=== PATIENT | female | born 1970 | race Caucasian/White ===

== ENCOUNTER 2024-05-13 14:54 | Emergency (ER) | payer MEDICARE, SELFPAY ==
[2024-05-13] VITALS (22 sets, daily range): BP systolic 105–141; BP diastolic 67–95; PULSE 87–118; RESP 14–28; TEMP 35.5–35.7; O2SAT 98–100
--- NOTE | ~2024-05-13 | XR_ITS ---
XR chest ET placement Ordering provider: Anshu Ortiz MD History: 53 years Female with . ET PLACEMENT AND OG,NONRESPONSIVE,H/O SEIZURES . Comparison: September 03, 2023 FINDINGS: Nasogastric tube with the tip in the stomach. Endotracheal tube with the tip above the genie by abou t 2.9 cm. Congestive rita. MEDIASTINUM: The cardiac silhouette is not enlarged. LUNGS: No infiltrates, effusions or pneumothorax. OTHER: No free air under the diaphragm. IMPRESSION: No acute cardiopulmonary pathology. Reviewed, dictated and finalized at location A.
--- NOTE | ~2024-05-13 | CT_ITS ---
CT brain wo con Ordering provider: Anshu Ortiz MD History: 53 years Female with . ams . Comparison: September 03, 2023 Technique: CT of the head without contrast. Radiation reduction technique utilized. The dose-length product was 756.67 mGy-cm. FINDINGS: BRAIN PARENCHYMA AND CSF SPACES: No midline shift, mass effect or hemorrhage. The brain parenchyma a nd CSF spaces are otherwise normal. VISUALIZED PARANASAL SINUSES: Well aerated. MASTOIDS: Well aerated. BONES: The bones appear intact. SOFT TISSUES: Visualized nasopharynx is normal. Superficial soft tissues are normal. IMPRESSION: No acute intracranial findings. Reviewed, dictated and finalized at location A.
--- NOTE | 2024-05-13 14:54 | PC.NURSE ---
patient arrives to department. unknown name at this time. per ems, non compliant with home medications, smells of etoh, has taken multiple norco, found face down on the ground after getting out of vehicle. unresponsive.
--- NOTE | 2024-05-13 14:58 | PC.NURSE ---
blood glucose 78. hx of seizures, last known seizure october per ems
--- NOTE | 2024-05-13 15:01 | PC.NURSE ---
continue to bag patient dilated pupils, moves eyes left and right. labs drawn and taken to lab
[2024-05-13] MEDS: DEXTROSE 50% 25 GM/50 ML SYRINGE IV PUSH (15:03)
--- NOTE | 2024-05-13 15:06 | PC.NURSE ---
plan for intubation by dr johnston. trying to contact family to verify code status. patient continues to be bagged by respiratory therapist
--- NOTE | 2024-05-13 15:07 | PC.NURSE ---
ekg in progress by susanne nava
--- NOTE | 2024-05-13 15:09 | ECG_ITS ---
Test Date: 2024-05-13 15:12:58 Measurements Intervals [place] Rate: 113 P: 57 [place]: 181 QRS: -11 QRSD: 92 T: 52 QT: 341 QTc: 469 Interpretive Statements SINUS TACHYCARDIA POSSIBLE LEFT ATRIAL ENLARGEMENT MINIMAL Q WAVES- HIGH LATERAL LEADS BORDERLINE ST-T WAVE ABNORMALITY- INF/LAT LEADS BASELINE ARTIFACT- AVL, V1-V2, V6 ABNORMAL ECG No previous ECG available for comparison Electronically Signed On 05-13-2024 15:30:50 CDT by Aaron Ca D.O.
--- NOTE | 2024-05-13 15:18 | PC.NURSE ---
[place] [employer] notified to identify pt, they return the call reporting pt is Jolanta Montes, with Sandeep Montes, and EMS returned to scene to get son's phone number due to him being medical power of contract attorney. informed EMS pt is NO CPR, unsure of intubation, message left on son's phone Micky Montes at [phone].
[2024-05-13] MEDS: NALOXONE HCL INJ 2 MG/2 ML AMP IV PUSH (15:19)
--- NOTE | 2024-05-13 15:19 | PC.NURSE ---
repeat blood glucose 167. continue to bag patient. narcan given.
[2024-05-13 15:20] LABS: Hemoglobin 12.8 g/dL (12.0-15.0); Mean Corpuscular HGB Conc 32.8 g/dL (32-36); Mean Corpuscular Hemoglobin 29.7 pg (27.0-31.0); Mean Corpuscular Volume 90.5 fL (78.0-102.0); Mean Platelet Volume 11.1 fl (9.2-11.8); Platelet Count Result 355 K/mm3 (150-420); Red Blood Count 4.31 M/mm3 (4.20-5.40); Red Cell Distribution Width 14.3 % (11.6-14.4); White Blood Count 8.4 K/mm3 (4.8-10.8)
[2024-05-13 15:24] LABS: Add Urine Microscopic? NO; Appearance Urine Clear (Clear); Bilirubin Urine Negative (Negative); Blood Urine Negative (Negative); Color Urine Yellow (Yellow); Glucose Urine UA Negative (Negative); Ketones Urine Trace (Negative); Leukocyte Esterase Ur Negative LEU/UL (Negative); Nitrate Urine Negative (Negative); Protein Urine Negative (Negative); Urobilinogen Urine 0.2 mg/dL (0.2-1.0); pH Urine 5.5 (5.0-8.0)
--- NOTE | 2024-05-13 15:27 | PC.NURSE ---
SPOKE WITH SON WHO IS UNSURE IF HE IS POWER OF CURRENCY EXCHANGE SPECIALIST I DON'T KNOW, THAT'S WHAT THEY TELL ME, WE DON'T GET ALONG, DO WHATEVER YOU HAVE TO TO GET HER GOING AGAIN. THIS RN EXPLAINED PT STATUS, AND WHAT THE DIFFERENCE IN CODE STATUSES. SON STATES PT IS A FULL CODE AT THIS TIME. ERP SPEAKS WITH SON, AND HE NOTIFIES ERP THAT PT IS A FULL CODE. [phone]. PT CONTINUES TO HAVE RHYTHMIC EYE MOVEMENT, ERP HAS BEEN NOTIFIED, REQUESTED MEDICATION FOR SEIZURE MANAGEMENT, STATES HE IS GOING TO INTUBATE PT FIRST.
--- NOTE | 2024-05-13 15:31 | PC.NURSE ---
second plan for intubation by dr johnston. patient is full code.
[2024-05-13] MEDS: ETOMIDATE 20 MG/10 ML AMPUL 30 MG IV PUSH (15:32)
[2024-05-13] MEDS: SUCCINYLCHOLINE CHLORIDE 20 MG/ML 10 ML VIAL 150 MG IV PUSH (15:32)
--- NOTE | 2024-05-13 15:34 | PC.NURSE ---
Intubation by Dr Ortiz. 23 at the lip, 7.5 ett. 100% with ventilation, +color change, + breath sounds
[2024-05-13 15:38] LABS: Amphetamine Screen Urine Negative (Negative); Barbiturate Screen Urine Negative (Negative); Benzodiazepines Screen Urine Negative (Negative); Cannabinoid Screen Urine Positive (Negative); Cocaine Screen Urine Negative (Negative); Methadone Screen Urine Negative (Negative); Opiate Screen Urine Positive (Negative); Phencyclidine Screen Urine Negative (Negative)
[2024-05-13 15:38] LABS: INR 1.2; Partial Thromboplastin Time 28.7 Sec (23.9-30.70); Prothrombin Time 13.4 Seconds (9.50-12.1)
--- NOTE | 2024-05-13 15:38 | PC.NURSE ---
18 F OG tube placed by Raphael ANG
[2024-05-13 15:41] LABS: Alanine Aminotransferase 47 U/L (14-59); Albumin Level 3.4 g/dL (3.4-5.0); Alkaline Phosphatase 143 U/L (46-116); Anion Gap 9 mmol/L (4-12); Aspartate Amino Transferase 30 U/L (15-37); Bilirubin,Total 0.2 mg/dL (0.00-1.00); Blood Urea Nitrogen 10 mg/dL (7-18); Calcium 8.6 mg/dL (8.5-10.1); Carbon Dioxide 27 mmol/L (21-32); Chloride 99 mmol/L (98-108); Estimated CRCL calculation 82 ml/min; Estimated Glomerular Filt Rate > 60; Ethanol 118 mg/dL (0-6); Glucose 78 mg/dL (70-99); Magnesium 2.2 mg/dL (1.8-2.4); Osmolality Calculated 278 mOsm/kg (285-295); Potassium 3.4 mmol/L (3.5-5.1); Sodium 135 mmol/L (136-145); Total Protein 6.9 g/dL (6.4-8.2); Troponin I 4.5 ng/L (0.00-60.4)
[2024-05-13] MEDS: PROPOFOL IV EMULSION 100 ML 2.72 MG IV CONT (15:44)
[2024-05-13 15:45] LABS: Lactic Acid Reflex 2.8 mmol/L (0.4-2.0)
--- NOTE | 2024-05-13 15:58 | PC.NURSE ---
increased secreations from the mouth. suction complete
--- NOTE | 2024-05-13 15:58 | ED.GENADULT ---
HPI - General Adult General Chief complaint: Altered Mental Status Stated complaint: AMBULANCE Time Seen by Provider: 05/13/24 15:04 History of Present Illness HPI narrative: 53-year-old white female with history of seizure disorder brought in by EMS unresponsive. She has a history of this past spring being intubated for seizures for prolonged period of time several months. said that she got out of her car and started to come to the house but then went unresponsive went to the grass had irregular breathing EMS arrived and she was in agonal breathing. She was given 4 mg of Narcan and 2 mg of Versed for eye rolling otherwise she had no other seizure like activity. stated she probably drank 3 beers and took several of her Vicodin Prior to all this. Her previous seizures that led to her prolonged intubation and ventilation support were similar to this episode according to the . said she was doing fine before this episode. Related Data Home Medications Medication Instructions Recorded Confirmed atorvastatin 40 mg tablet 40 mg PO DAILY 05/13/24 05/13/24 duloxetine 60 mg capsule,delayed 60 mg PO DAILY 05/13/24 05/13/24 release gabapentin 800 mg tablet 800 mg PO TID 05/13/24 05/13/24 hydrocodone 5 mg-acetaminophen 325 1 tablet PO Q8H PRN Pain 05/13/24 05/13/24 mg tablet lacosamide 200 mg tablet 200 mg PO BID 05/13/24 05/13/24 levetiracetam 1,000 mg tablet 1,000 mg PO BID 05/13/24 05/13/24 levothyroxine 150 mcg tablet 150 mcg PO DAILY 05/13/24 05/13/24 magnesium oxide-magnesium amino 400 cap PO DAILY 05/13/24 05/13/24 acid chelate 300 mg capsule (Magnesium (oxide/AA chelate)) nifedipine 60 mg tablet,extended 60 mg PO DAILY 05/13/24 05/13/24 release 24 hr pantoprazole 40 mg tablet,delayed 40 mg PO DAILY 05/13/24 05/13/24 release propafenone 150 mg tablet 150 mg PO BID 05/13/24 05/13/24 trazodone 50 mg tablet 50 mg PO HS 05/13/24 05/13/24 warfarin 1 mg tablet 1 mg PO DAILY 05/13/24 05/13/24 warfarin 3 mg tablet 3 mg PO DAILY 05/13/24 05/13/24 Allergies Allergy/AdvReac Type Severity Reaction Status Date / Time ciprofloxacin Allergy Itching Verified 05/13/24 15:52 Review of Systems Review of Systems: ROS unobtainable: Yes unobtainable due to endotracheal tube and unobtainable due to mental status Exam Narrative: White female patient coma toes not responding to painful stimuli with agonal respirations being bagged..? Head normocephalic, atraumatic.? Eyes conjunctiva pink sclera nonicteric. Pupils are 5 mm equal and react to light.? Ears externally normal.? Oropharynx is clear with moist mucous membranes without exudates.? Neck is supple nontender no lymphadenopathy. Lungs are clear.? Heart is Rapid with regular rate and rhythm without murmurs gallops or rubs.? Chest wall nontender. Abdomen is soft and nontender no hepatosplenomegaly or masses no CVA tenderness no abdominal bruits. There is a bandage center of her abdomen looks like G-tube site without the G-tube..? Extremities no cyanosis clubbing or edema.? Skin is warm and dry without rashes or lesions.? Neurological patient is alert and oriented x4.? Motor : Patient does move all extremities. Course Vital Signs Vital signs: Vital Signs Pulse Rate 106 H 05/13/24 14:58 Respiratory Rate 16 05/13/24 14:58 Blood Pressure 105/74 05/13/24 14:58 Pulse Oximetry 98 05/13/24 14:58 Temperature 35.5 C L 05/13/24 17:19 Pulse Rate 87 05/13/24 17:16 Respiratory Rate 14 05/13/24 17:16 Blood Pressure 119/83 05/13/24 17:16 Pulse Oximetry 100 05/13/24 17:16 Oxygen Delivery Mechanical Ventilation 05/13/24 17:16 Medical Decision Making MDM Narrative Medical decision making narrative: Patient placed in room: 7 by EMS ? History and physical was performed. patient given 4 of Narcan by EMS and 2 of Versed IV patient was being bagged by EMS having had and having agonal respirations. review of
--- NOTE | 2024-05-13 16:07 | PC.NURSE ---
pt had 90 norco tabs filled on 05/02/24. there are 16 tabs left in the bottle. pt is to take 3 tablets a day as needed, there are 38 norco tablets unaccounted for at this time. pt does not have a pill box filled at home. kedelonra is appropriate, recently started on this and weaned off the depakote per .
[2024-05-13] MEDS: levETIRAcetam 1000MG/NACL100ML 1,000 MG/100 ML BAG 400 MG IVPB (16:09)
--- NOTE | 2024-05-13 16:14 | PC.NURSE ---
blood glucose 122
[2024-05-13 16:16] LABS: Glucose Point of Care 122 mg/dl (65-105)
--- NOTE | 2024-05-13 16:27 | PC.NURSE ---
patient being transported to ct via mik harkins ventilator, lynne liriano and sol PRICE
[2024-05-13 16:31] LABS: Salicylate 6.7 mg/dL (2.8-20.0)
[2024-05-13 16:31] LABS: Thyroid Stimulating Hormone 44.11 uIU/mL (0.36-3.74)
[2024-05-13 16:32] LABS: Acetaminophen < 2 ug/mL (10-30)
--- NOTE | 2024-05-13 16:40 | PC.NURSE ---
returned from ct with monitor, ventilator, lynne liriano and sol rt
--- NOTE | 2024-05-13 16:54 | PC.NURSE ---
currently awaiting bed placement at [facility]. Patient is resting on stretcher. Intubated, sedated, on conveyor monitor. patient at times will move her hands and her feet. dilated pupils at 4. moves eyes left and right when eyes are being checked.
--- NOTE | 2024-05-13 16:59 | PC.NURSE ---
SPOKE WITH SON SILVANA WHO CALLED TO REPORT PT HAS BEEN DRINKING ETOH AND ABUSING HER NORCO FOR THE PAST MONTH, SON REPORTS HE WANTED TO MAKE SURE STAFF WAS AWARE, WAS UNCERTAIN IF HAD REPORTED THIS, STATES HE DOES NOT LIKE TO DISCLOSE THIS INFORMATION.
--- NOTE | 2024-05-13 17:08 | PC.NURSE ---
personal items of blue jeans, brown boots and medications given back to to take home. shirt was cut off by ems, thrown away
--- NOTE | 2024-05-13 17:26 | PC.NURSE ---
RADIOLOGY PUSHED IMAGES TO [facility]
--- NOTE | 2024-05-13 17:33 | PC.NURSE ---
air evac here for patient.
[2024-05-13 18:17] LABS: Reflex Lactic Acid Yes or No Add Lactic
== END 2024-05-13 18:01 | disposition short-term general hospital (02) ==
PROVIDERS: Emergency Provider Emergency Medicine; PCP Family Medicine
DX: R40.4 Transient alteration of awareness (principal); F10.129 Alcohol abuse with intoxication, unspecified; Y90.9 Presence of alcohol in blood, level not specified; T40.601A Poisoning by unspecified narcotics, accidental (unintentional), initial encounter; G40.909 Epilepsy, unspecified, not intractable, without status epilepticus; Z79.899 Other long term (current) drug therapy; Z79.891 Long term (current) use of opiate analgesic; Z79.01 Long term (current) use of anticoagulants
CPT/HCPCS: 31500; 36415; 70450; 80053; 80307; 81003; 82948; 83605; 83735; 84443; 84484; 85027; 85610; 85730; 93005; 96365; 96375; 99285; J0330; J1953; J2310; J2704

== ENCOUNTER 2024-12-17 07:31 | Outpatient (CLI) | payer MEDICARE, SELFPAY ==
--- NOTE | ~2024-12-17 | NM_ITS ---
EXAMINATION: NM sybil stress w perfusion DATE: 12/17/2024 10:55 INDICATION: Chest pain TECHNIQUE: Rest images were obtained following intravenous administration of 10 mCi Tc99m tetrofosmin (Myoview). The patient was infused intravenously with Lexiscan (Regadenoson). Then, 33 mCi Tc99m tet rofosmin (Myoview) was administered intravenously, and stress images were obtained. Data was reconstr ucted into short axis and horizontal and vertical long axis SPECT images. Gated SPECT images were als o obtained. COMPARISON: None. FINDINGS: There is no definite reversible or fixed perfusion abnormality to suggest ischemia or infar ction. There is normal left ventricular chamber size, wall motion and ejection fraction. Left ventr icular ejection fraction measures >70%. IMPRESSION: 1. Normal myocardial perfusion at rest and during stress. 2. Left ventricular ejection fraction measuring >70%. Reviewed, dictated and finalized at location B.
--- OUTSIDE RECORDS SUMMARY | 2024-12-17 07:39 | XMS_ITS | Encounter Summary ---
Author Organization [facility] Address [facility] [place] [address] Care Team Providers Care Tumbling And Rolling Supervisor Name Role Phone Cuate St MD Primary Care Provider [phone] Pallavi Rahman MD Unavailable Akshat Magana MD Primary Care Provider [phone] Josephine Aguilar MD Unavailable [phone] Eric Gauthier MD Unavailable [phone] Josephine Aguilar MD Primary Care Provider + [phone] Demetri Edwards MD Unavailable [phone] Ronaldo Weston DO Primary Care Provider [phone] Encounter Details Date Type Department Care Team (Late st Contact Info) Description 09/20/2022 [facility] Message Enc [facility] [address] [phone] [facility] Provider Response Social History Tobacco Use Types Packs/Day Years Used Date Smoking Tobacco: Former Cigarettes Smokeless Tobacco: Never Alcohol Use Standard Drinks/Week Comments Not Currently 0 (1 standard drink = 0.6 oz pur e alcohol) hx of alcoholism Humiliation, Afraid, Rape, and Kick questionnair e Answer Date Recorded Within the last year, have y ou been afraid of your partner or ex-partner? No 09/20/2022 Within the last year, have y ou been humiliated or emotionally abused in other ways by your partner or ex-partner? No Within the last year, have y ou been kicked, hit, slapped, or otherwise physically hurt by your partner or ex-partner? No 09/20/2022 Within the last year, have y ou been raped or forced to have any kind of sexual activity by your partner or ex-partner? No 09/20/2022 Overall Financial Resource Strain (CARDIA) Answe r Date Recorded How hard is it for you to pa y for the very basics like food, housing, medical care, and heating? Somewhat hard 09/20/2022 Hunger Vital Sign Answer Date Recorded Within the past 12 months, y ou worried that your food would run out before you got the money to buy more. Sometimes true Within the past 12 months, t he food you bought just didn't last and you didn't have money to get more. Sometimes true 08/2022 PRAPARE - Transportation Answer Date Re corded In the past 12 months, has l ack of transportation kept you from medical appointments or from getting medications? No 08/2022 In the past 12 months, has l ack of transportation kept you from meetings, work, or from getting things needed for daily living? No 09/20/2022 Housing Stability Vital Sign Answer Mehul e Recorded In the last 12 months, was t here a time when you were not able to pay the mortgage or rent on time? No 09/20/2022 In the last 12 months, how many places have you lived? 1 09/20/2022 In the last 12 months, was t here a time when you did not have a steady place to sleep or slept in a long-term (including now)? No 09/20/2022 Comments Unknown Sex and Gender Information Value Date Recorded Sex Assigned at Female 09/03/2024 11:46 AM BLOCKER AND SEWER Legal Sex Female 2:43 AM CDT Gender Identity Not on file Sexual Orientation Not on file COVID-19 Exposure Response Date Recorded In the last 10 days, have yo u been in contact with someone who was confirmed or suspected to have Coronavirus/COVID-19? No / Unsure 09/04/2022 2:08 AM BLOCKER AND SEWER documented as of this encounter Functional Status * RETIRED Are you deaf or do you have serious difficulty hearing Answer Date of Assessment Author Status No 09/04/2022 2:00 AM BLOCKER AND SEWER Activ e * RETIRED Are you blind or do you have serious difficulty seeing, even when wearing glasses? Answer Date of Assessment Author Status No 09/04/2022 2:00 AM BLOCKER AND SEWER Activ e * Do you have serious difficulty walking or climbing stairs? Answer Date of Assessment Author Status No 09/04/2022 2:00 AM BLOCKER AND SEWER Lluvia Daugherty RN Active * Do you have difficulty dressing or bathing? Answer Date of Assessment Author Status No 09/04/2022 2:00 AM BLOCKER AND SEWER Lluvia Daugherty RN Active * Because of a physical, mental, or emotional condition, do you have difficulty doing errands alone such as visiting a doctor's office or shopping? Answer Date of Assessment Author Status No 09/04/2022 2:00 AM Lluvia David RN Active documented as of this encounter Mental Status * Because of a physical, mental, or emotional condition, do you have serious difficulty concentrating, remembering, or making decisions? Answer Entry Date Author Status No 09/04/2022 2:00 AM Lluvia David RN Active documented in this encounter Plan of Treatment Not on file documented as of this encounter Goals Goal Patient Goal Type Associated Problems Recent Progress Patient-Stated? 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 documented as of this encounter Care Teams Tumbling And Rolling Supervisor Relationship Specialty Start Date End Date Cuate St MD [address] [place] [address] PCP - General INTERNAL MEDICINE 05/02/19 12/13/22 Akshat Magana MD [address] [place] [phone] PCP - General FAMILY PRACTICE 12/14/22 07/07/23 Josephine Aguilar MD [address] [place] [phone] PCP - General FAMILY PRACTICE 07/08/23 09/09/24 Ronaldo Weston DO [address] [place] [address] PCP - General FAMILY PRACTICE 09/10/24 Pallavi Rahman MD [address] [place] [address] Consulting Physician CARDIOVASCULAR DISEASE 08/25/22 Josephine Aguilar MD [address] [place] [phone] Physician FAMILY PRACTICE 03/14/23 Eric Gauthier MD [address] [place] [phone] Consulting Physician CLINICAL CARDIAC ELECTROPHYSIOLOGY 06/18/23 Demetri Edwards MD [address] [place] [address] [place] [address] Consulting Physician SURGERY 05/07/24 05/07/25 documented as of this encounter
--- OUTSIDE RECORDS SUMMARY | 2024-12-17 07:39 | XMS_ITS | Encounter Summary ---
Author Organization [facility] Address [facility] [place] [address] Care Team Providers Care Overlock Hemmer Name Role Phone Cuate St MD Primary Care Provider [phone] Pallavi Rahman MD Unavailable Akshat Magana MD Primary Care Provider Josephine Aguilar MD Unavailable [phone] Eric Gauthier MD Unavailable [phone] Josephine Aguilar MD Primary Care Provider [phone] Demetri Edwards MD Unavailable [phone] Ronaldo Weston DO Primary Care Provider [phone] Encounter Details Date Type Department Care Team (Late st Contact Info) Description 09/24/2022 [facility] [place] [place] Documentation [facility] [address] [place] [phone] Pallavi Rahman MD [address] [place] [address] Social History Tobacco Use Types Packs/Day Years [...] place to sleep or slept in a [facility] (including now)? No 09/20/2022 Comments Unknown Sex and Gender Information Value Date Recorded Sex Assigned at Female 09/03/2024 11:46 AM TOW DRIVER Legal Sex Female 2:43 AM CDT Gender Identity Not on file Sexual Orientation Not on file COVID-19 Exposure Response Date Recorded In the last 10 days, have yo u been in contact with someone who was confirmed or suspected to have Coronavirus/COVID-19? No / Unsure 09/04/2022 2:08 AM TOW DRIVER documented as of this encounter Functional Status * RETIRED Are you deaf or do you have serious difficulty hearing Answer Date of Assessment Author Status No 09/04/2022 2:00 AM TOW DRIVER Activ e * RETIRED Are you blind or do you have serious difficulty seeing, even when wearing glasses? Answer Date of Assessment Author Status No 09/04/2022 2:00 AM TOW DRIVER Activ e * Do you have serious difficulty walking or climbing stairs? Answer Date of Assessment Author Status No 09/04/2022 2:00 AM TOW DRIVER Lluvia Daugherty RN Active * Do you have difficulty dressing or bathing? Answer Date of Assessment Author Status No 09/04/2022 2:00 AM TOW DRIVER Lluvia Daugherty RN Active * Because of a physical, mental, or emotional condition, do you have difficulty doing errands alone such as visiting a doctor's office or shopping? Answer Date of Assessment Author Status No 09/04/2022 2:00 AM TOW DRIVER Lluvia Daugherty RN Active documented as of this encounter [...] documented as of this encounter Care Teams Overlock Hemmer Relationship Specialty Start Date End Date Cuate St MD [address] [place] [address] PCP - General INTERNAL MEDICINE 05/02/19 12/13/22 Akshat Magana MD [address] [place] [phone] PCP - General FAMILY PRACTICE 12/14/22 07/07/23 Josephine Aguilar MD [address] [place] [phone] PCP - General FAMILY PRACTICE 07/08/23 09/09/24 Ronaldo Wesotn DO [address] [place], [place] [phone] PCP - General FAMILY PRACTICE 09/10/24 Pallavi Rahman MD [address] [place] [address] Consulting Physician CARDIOVASCULAR DISEASE 08/25/22 Josephine Aguilar MD [address] [place] [phone] Physician FAMILY PRACTICE 03/14/23 Eric Gauthier MD [address] [place] [address] Consulting Physician CLINICAL CARDIAC ELECTROPHYSIOLOGY 06/18/23 Demetri Edwards MD [address] [place] [address] [place] [address] Consulting Physician SURGERY 05/07/24 05/07/25 documented as of this encounter
--- OUTSIDE RECORDS SUMMARY | 2024-12-17 07:39 | XMS_ITS | Encounter Summary ---
Author Organization [facility] Address [facility] [place] [address] Care Team Providers Care Cloth Finishing Range Back Tender Name Role Phone Pallavi Rahman MD Unavailable Josephine Aguilar MD Unavailable [phone] Eric Gauthier MD Unavailable [phone] Josephine Aguilar MD Primary Care Provider + [phone] Demetri Edwards MD Unavailable [phone] Ronaldo Weston DO Primary Care Provider [phone] Encounter Details Date Type Department Care Team (Late st Contact Info) Description 01/29/[address] [facility] EPICCARE LINK Danie Rodriguez MD [address] [place] [address] Social History Tobacco Use Types Packs/Day Years Used Date Smoking Tobacco: Every Day Cigarettes 1.5 42 Smokeless Tobacco: Never Alcohol Use Standard Drinks/Week Comments Not Currently 16.7 (1 standard drink = 0.6 oz pure alcohol) hx of alcoholism [facility] Utilities Answer Date Recorded In the past 12 months has th e [employer], gas, oil, or water [employer] threatened to shut off services in your home? No 07/20/2023 Humiliation, Afraid, Rape, and Kick questionnair e Answer Date Recorded Within the last year, have y ou been afraid of your partner or ex-partner? No 07/20/2023 Within the last year, have y ou been humiliated or emotionally abused in other ways by your partner or ex-partner? No Within the last year, have y ou been kicked, hit, slapped, or otherwise physically hurt by your partner or ex-partner? No 07/20/2023 Within the last year, have y ou been raped or forced to have any kind of sexual activity by your partner or ex-partner? No 07/20/2023 Overall Financial Resource Strain (CARDIA) Answe r Date Recorded How hard is it for you to pa y for the very basics like food, housing, medical care, and heating? Not hard at all 07/20/2023 Hunger Vital Sign Answer Date Recorded Within the past 12 months, y ou worried that your food would run out before you got the money to buy more. Never true 07/20/20 23 Within the past 12 months, t he food you bought just didn't last and you didn't have money to get more. Never true 07/20/2023 PRAPARE - Transportation Answer Date Re corded In the past 12 months, has l ack of transportation kept you from medical appointments or from getting medications? No 08/2022 In the past 12 months, has l ack of transportation kept you from meetings, work, or from getting things needed for daily living? No 07/20/2023 Housing Stability Vital Sign Answer Mehul e Recorded In the last 12 months, was t here a time when you were not able to pay the mortgage or rent on time? No 07/20/2023 In the last 12 months, how many places have you lived? 1 07/20/2023 In the last 12 months, was t here a time when you did not have a steady place to sleep or slept in a detention (including now)? No 07/20/2023 Comments No Sex and Gender Information Value Date Recorded Sex Assigned at Female 09/03/2024 11:46 AM TY Legal Sex Female 2:43 AM CDT Gender Identity Not on file Sexual Orientation Not on file documented as of this encounter Functional Status * Are you deaf or do you have serious difficulty hearing Answer Date of Assessment Author Status No 07/20/2023 6:12 PM Aixa Thompson R N Active * Are you blind or do you have serious difficulty seeing, even when wearing glasses? Answer Date of Assessment Author Status No 07/20/2023 6:12 PM Aixa Thompson R N Active * Do you have serious difficulty walking or climbing stairs? Answer Date of Assessment Author Status No 07/20/2023 6:12 PM Aixa Thompson R N Active * Do you have difficulty dressing or bathing? Answer Date of Assessment Author Status No 07/20/2023 6:12 PM Aixa Thompson R N Active * Because of a physical, mental, or emotional condition, do you have difficulty doing errands alone such as visiting a doctor's office or shopping? Answer Date of Assessment Author Status No 07/20/2023 6:12 PM Aixa Thompson R N Active * Calculated C-SSRS Risk Score (Lifetime/Recent) Answer Date of Assessment Author Status No Risk Indicated 01/29/2024 5:21 PM Yoseph Ortiz RN Active * [place] Suicide Severity Rating Scale (Screener/Recent Self-Report) Question Answer Date of Assessment Author Status 1. Wish to be (Past 1 Month) No 01/29/2024 5:21 PM Charlene Ortiz RN Acti ve 2. Non-Specific Active Suicidal Thoughts (Past 1 Month) No 01/29/2024 5:21 PM Charlene Ortiz RN Acti ve 6. Suicidal Behavior (Lifetime) No 01/29/2024 5:21 PM Charlene Ortiz RN Acti ve documented as of this encounter Mental Status * Because of a physical, mental, or emotional condition, do you have serious difficulty concentrating, remembering, or making decisions? 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 09/05/2024 documented as of this encounter Care Teams Cloth Finishing Range Back Tender Relationship Specialty Start Date End Date Josephine Aguilar MD [address] [place] [phone] PCP - General FAMILY PRACTICE 07/08/23 09/09/24 Ronaldo Weston DO [address] [place], [place] [id number] PCP - General FAMILY PRACTICE 09/10/24 Pallavi Rahman MD [address] [place] [address] Consulting Physician CARDIOVASCULAR DISEASE 08/25/22 Josephine Aguilar MD [address] [place] [phone] Physician FAMILY PRACTICE 03/14/23 Eric Gauthier MD [address] [place] [address] Consulting Physician CLINICAL CARDIAC ELECTROPHYSIOLOGY 06/18/23 Demetri Edwards MD [address] [place] [address] [place] [address] Consulting Physician SURGERY 05/07/24 05/07/25 documented as of this encounter
--- OUTSIDE RECORDS SUMMARY | 2024-12-17 07:40 | XMS_ITS | Encounter Summary ---
Author Organization [facility] Address [facility] [place] [address] Care Team Providers Care Correspondence Transcriber Name Role Phone Cuate St MD Primary Care Provider [phone] Pallavi Rahman MD Unavailable Akshat Magana MD Primary Care Provider Josephine Aguilar MD Unavailable [phone] Eric Gauthier MD Unavailable [phone] Josephine Aguilar MD Primary Care Provider + [phone] Demetri Edwards MD Unavailable [phone] Ronaldo Weston DO Primary Care Provider [phone] Encounter Details Date Type Department Care Team (Late st Contact Info) Description 08/02/2022 Hospital Follow-up Call [facility] [address] [place] [address] Poonam Zimmerman RN Social History Tobacco Use Types Packs/Day Years Used Date Smoking Tobacco: Every Day Cigarettes Smokeless Tobacco: Never Alcohol Use Standard Drinks/Week Comments Not Currently 0 (1 standard drink = 0.6 oz pur e alcohol) hx of alcoholism Comments Unknown Sex and Gender Information Value Date Recorded Sex Assigned at Female 09/03/2024 11:46 AM SUPERVISOR [employer]ERVATIONS Legal Sex Female 2:43 AM CDT Gender Identity Not on file Sexual Orientation Not on file COVID-19 Exposure Response Date Recorded In the last 10 days, have edilberto u been in contact with someone who was confirmed or suspected to have Coronavirus/COVID-19? No / Unsure 07/29/2022 12:35 AM SUPERVISOR [employer]ERVATIONS documented as of this encounter Functional Status * RETIRED Are you deaf or do you have serious difficulty hearing Answer Date of Assessment Author Status No 07/27/2022 3:53 PM SUPERVISOR [employer]ATIONS Activ e * RETIRED Are you blind or do you have serious difficulty seeing, even when wearing glasses? Answer Date of Assessment Author Status No 07/27/2022 3:53 PM SUPERVISOR [employer]ATIONAL [employer]ERVATIONS Activ e * Do you have serious difficulty walking or climbing stairs? Answer Date of Assessment Author Status Yes 07/27/2022 3:53 PM SUPERVISOR [employer]ATIONAL RESERVATIONS Shakira Nicole RN Active * Do you have difficulty dressing or bathing? Answer Date of Assessment Author Status Yes 07/27/2022 3:53 PM SUPERVISOR [employer]ATIONS Shakira Nicole RN Active * Because of a physical, mental, or emotional condition, do you have difficulty doing errands alone such as visiting a doctor's office or shopping? Answer Date of Assessment Author Status Yes 07/27/2022 3:53 PM SUPERVISOR [employer]ATIONAL [employer]ERVATIONS Shakira Nicole RN Active documented as of this encounter Mental Status * Because of a physical, mental, or emotional condition, do you have serious difficulty concentrating, remembering, or making decisions? Answer Entry Date Author Status Yes 07/27/2022 3:53 PM SUPERVISOR [employer]ATIONS Shakira Nicole RN Active documented in this encounter Plan of Treatment Not on file documented as of this encounter Visit Diagnoses Not on filedocumented in this encounter Additional Health Concerns Infection Onset Date Last Indicated Resolved Time COVID-19 Rule Out 09/08/2022 09/08/2022 09/08/2022 7:39 PM SUPERVISOR [employer]ATIONS MRSA 07/13/2023 09/05/2024 documented as of this encounter Care Teams Correspondence Transcriber Relationship Specialty Start Date End Date Cuate [facility] MD [address] [place] [address] PCP - General INTERNAL MEDICINE 05/02/19 12/13/22 Akshat Magana MD [address] [place] [phone] PCP - General FAMILY PRACTICE 12/14/22 07/07/23 Josephine Aguilar MD [address] [place] [phone] PCP - General FAMILY PRACTICE 07/08/23 09/09/24 Ronaldo Weston DO [address] [place] [address] PCP - General FAMILY PRACTICE 09/10/24 Pallavi Rahman MD [address] [place] [address] Consulting Physician CARDIOVASCULAR DISEASE 08/25/22 Josephine Aguilar MD [address] [place] [phone] Physician FAMILY PRACTICE 03/14/23 Eric Gauthier MD [address] [place] [address] Consulting Physician CLINICAL CARDIAC ELECTROPHYSIOLOGY 06/18/23 Demetri Edwards MD [address] [place] [address] [place] [address] Consulting Physician SURGERY 05/07/24 05/07/25 documented as of this encounter
--- OUTSIDE RECORDS SUMMARY | 2024-12-17 07:40 | XMS_ITS | Referral Summary ---
Author Organization [facility] Address [address] [place] [address] Care Team Providers Care Software Development Engineer Name Role Phone Akshat Magana MD Primary Care Provider [phone] Encounters Date Type Department Care Team Description 11/14/2024 Telephone [facility] Primary Care at [address] [place] [address] Gilmar Miller MD F/u on cancellation request 11/13/2024 Telephone [facility] Primary Care at [address] [place] [address] Gilmar Miller MD Cancellation Request from Last 3 Months Allergies No known active allergies Medications levothyroxine (SYNTHROID) 25 mcg tablet take 1 tablet by oral route every day 0 1 Active gabapentin (NEURONTIN) 100 mg capsule Take 1 capsule (100 mg total) by mouth 3 (three) times a day Active QUEtiapine (SEROquel) 100 mg tablet Take 2 tablets (200 mg total) by mouth nightly 1 Active hydrOXYzine (VISTARIL) 25 mg capsule Take 2 capsules (50 mg total) by mouth nightly Active aspirin 81 mg enteric coated tablet Take 1 tablet (81 mg total) by mouth daily Active levETIRAcetam (KEPPRA) 1,000 mg tablet Take 1 tablet (1,000 mg total) by mouth 2 (two) times a day Active apixaban (ELIQUIS) 5 mg tablet Take 1 tablet (5 mg total) by mouth 2 (two) times a day Active metoprolol XL (TOPROL-XL) 25 mg extended release tablet Take 1 tablet (25 mg total) by mouth daily Active traZODone (DESYREL) 50 mg tablet Take 1 tablet (50 mg total) by mouth nightly Active NIFEdipine (NIFEdipine XL) 60 mg 24 hr tablet Take 1 tablet (60 mg total) by mouth daily Active atorvastatin (LIPITOR) 40 mg tablet Take 1 tablet (40 mg total) by mouth daily Active DULoxetine DR (CYMBALTA) 60 mg capsule Take 2 capsules (120 mg total) by mouth daily Active disulfiram (ANTABUSE) 250 mg tabletIndicatio ns:alcoholism Take 2 tablets (500 mg total) by mouth daily Active oxymetazoline (AFRIN) 0.05 % nasal spray Administer 2 sprays into each nostril nightly Active Active Problems Problem Noted Date Diagnosed Date Alcohol withdrawal syndrome, uncomplicated 06/14 Alcohol abuse with withdrawal, uncomplicated Gastric ulcer 11/15/2020 Overview (11/15/2020): Added automatically from request for surgery [id number] Encounter for screening colonoscopy 11/15/2020 Overview (11/15/2020): Added automatically from request for surgery [id number] Right upper quadrant abdominal pain 06/22/2015 Cardiac disease 03/16/2014 Rectal mass 03/16/2014 Screening for malignant neoplasm of cervix 03/16 Dysuria 03/16/2014 Lumbago 06/17/2012 Polyp of cervix 03/04/2012 Dysfunctional uterine bleeding 03/04/2012 Hypothyroidism Bipolar disorder Immunizations Immunization Administration Dates Next Due Influenza, Quadrivalent, Spl it, Preservative Free, Intramuscular 06/18/2023,11/10/2021 Social History Tobacco Use Types Packs/Day Years Used Date Smoking Tobacco: Every Day Cigarettes 1 41 Tobacco Cessation:Ready to Q uit: Yes; Counseling Given: Yes AUDIT-C Answer Date Recorded Q1: How often do you have a drink containing alcohol? 4 or more times a week 06/14/2023 Q2: How many drinks containi ng alcohol do you have on a typical day when you are drinking? 10 or more Q3: How often do you have si x or more drinks on one occasion? Daily or almost daily 06/14/2023 PHQ-2 Answer Date Recorded PHQ-2 Total Score (If total score is 3 or more points, staff should administer the PHQ-9) 0 11/08/2021 Personal Safety Answer Date Recorded Have you ever been in or are you currently in a harmful physical or emotional relationship or is someone making you feel afraid or unsafe? 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 Gender Identity Not on file Sexual Orientation Not on file Last Filed Vital Signs Vital Sign Reading Time Taken Comments Blood Pressure 125/83 06/18/2023 7:38 AM CDT Pulse 76 06/18/2023 7:38 AM CDT Temperature 36.4 C (97.6 F) 06/18/2023 7:38 AM CDT Respiratory Rate 16 06/18/2023 7:38 AM CDT Oxygen Saturation 100% 06/18/2023 7:38 AM CDT Inhaled Oxygen Concentration - - Weight 98.4 kg (217 lb) 06/14/2023 11:55 AM CDT Height 175.3 cm (5' 9 ) 06/14/2023 11:55 AM CDT Body Mass Index 32.05 06/14/2023 11:55 AM CDT Plan of Treatment Not on file Procedures Procedure Name Priority Date/Time Associated Diagnosis Comments COLONOSCOPY 12/24/2020 7:44 AM CDT SCREENING MAMMOGRAM W JUAN CARLOS Routine 03/16/2014 1:07 PM CDT from Last 3 Months or Most Recently Relevant to Health Maintenance Results * COLONOSCOPY (12/24/2020 7:44 AM CDT) Anatomical Region Laterality Modality Other Narrative Procedure Note Josafat Kumar MD - 12/24/2020 7:44 AM CDT [facility] Patient Name: Jolanta Jimenez Procedure Date: 12/24/2020 7:44 AM Date of : 1970 Admit Type: Outpatient Age: 50 Gender: Female Attending MD: Josafat Kumar M.D. Room: [facility] ENDOSCOPY ROOM 2 Note Status: Finalized Patient Profile: Refer to note in patient chart for documentation of history and physical. Procedure: Colonoscopy Indications: Screening for colorectal malignant neoplasm, Thisis the patient's first colonoscopy Referring MD: Cuate St M.D. Providers: Josafat Kumar M.D. Impression: - Hemorrhoids found on perianal exam. - The entire examined colon is normal. - No specimens collected. Recommendation: - Discharge patient to home. - Resume previous diet. - Continue present medications. - Repeat colonoscopy in 10 years for screening purposes. - Return to primary care physician as previously scheduled. Medicines: Propofol per Anesthesia Complications: No immediate complications. Estimated Blood Loss: Estimated blood loss: none. Procedure: Pre-Anesthesia Assessment: - This assessment was completed [Time ofAssessment] prior to the administration of sedation. The benefits, risks and alternatives of theprocedure and sedation were discussed and informed consentwas obtained. All questions were answered. Please referto the signed informed consent document in the medical record. The bowel preparation used was Miralax via single dose instruction. The bowel preparation used was bisacodyl tablets via single dose instruction.The scope was passed under direct vision. TheColonoscope [id number] was introduced through the anus and advanced to the the cecum, identified by appendiceal orifice and ileocecal valve. The colonoscopy was extremely difficult due to aredundant colon. The patient tolerated the procedure well.The quality of the bowel preparation was excellent. Findings: Hemorrhoids were found on perianal exam. The colon (entire examined portion) appeared normal. Electronically signed by Josafat Kumar M.D. Josafat Kumar M.D. 12/24/2020 10:19:06 AM Number of Addenda: 0 Note Initiated On: 12/24/2020 7:44 AM Procedure Code(s): --- Professional --- G0121, Colorectal cancer screening; colonoscopy on individual not meeting criteria for high risk Diagnosis Code(s): --- Professional --- K64.9, Unspecified hemorrhoids Z12.11, Encounter for screening for malignant neoplasm of colon CPT copyright 2019 [employer] [place] [employer]. All rights reserved. The codes documented in this report are preliminary and upon environmental advisor reviewmay be revised to meet current compliance requirements. Recognized by the [place] [employer] for promoting quality in endoscopy Josafat Kumar MD ENDOSCOPY PROCEDURES Final Re sult * Screening Mammogram W Juan Carlos (03/16/2014 1:07 PM CDT) Anatomical Region Laterality Modality Breast N/A Mammography 03/16/2014 1:07 PM CDT Narrative 03/18/2014 10:18 AM CDT LENORA VALLE M.D. FINAL REPORT ACC# Date Time Exam [id number] Mar 16, 2014 13:07:00 [facility] [place] [id number] Bilateral screen w juan carlos Technologist(s): Blanche Nazario; ; EXAMINATION: Mammogram Technique: Bilateral Bilateral Full-Field Digital Screening Mammogram and Digital Breast Tomosynthesis were performed. Views obtained: bilateral craniocaudal and bilateral mediolateral oblique. Computer Aided Detection of the 2D images was performed with mcTEL 1.3 version 9.3. Mammogram Findings: The present examination has been compared to a prior imaging study performed at [facility] on 03/04/2012. There are scattered fibroglandular densities. There is no suspicious abnormality in either breast. IMPRESSION: Annual screening mammography is recommended. OVERALL FINAL ASSESSMENT: BI-RADS CATEGORY 1: Negative. Requested By: Darlene Ace M.D. Dictated By: LENORA VALLE M.D. on Mar 18 2014 10:18A This document has been electronically signed by: LENORA VALLE M.D. on Mar 18 2014 10:17A Procedure Note Provider, MD Melanie - 12/10/2016 LENORA VALLE M.D. FINAL REPORT ACC# Date Time Exam [id number] Mar 16, 2014 13:07:00 [facility] [place] [id number] Bilateral screen w juan carlos Technologist(s): Blanche Nazario; ; EXAMINATION: Mammogram Technique: Bilateral Bilateral Full-Field Digital Screening Mammogram and Digital Breast Tomosynthesis were performed. Views obtained: bilateral craniocaudal and bilateral mediolateral oblique. Computer AidedDetection of the 2D images was performed with mcTEL 1.3 version 9.3. Mammogram Findings: The present examination has been compared to a prior imaging study performed at [facility] on 03/04/2012. There are scattered fibroglandular densities. There is no suspicious abnormality in either breast. IMPRESSION: Annual screening mammography is recommended. OVERALL FINAL ASSESSMENT: BI-RADS CATEGORY 1: Negative. Requested By: Darlene Ace M.D. Dictated By: LENORA VALLE M.D. on Mar 18 2014 10:18A This document has been electronically signed by: LENORA VALLE M.D. on Mar 18 2014 10:17A us Historical Provider MD MCGINN[facility] MAMMO PROCEDURES Karlie l Result from Last 3 Months or Most Recently Relevant to Health Maintenance Insurance MEDICARE [facility] CHOICE PLUS [facility] OPEN ACCESS Advance Directives For more information, please contact: [phone] * Full Code (Latest Code Status on File) Date Activated Date Inactivated Comments 06/14/2023 1:07 PM 06/18/2023 3:43 PM * Full Code Date Activated Date Inactivated Comments 11/05/2021 1:49 PM 11/10/2021 12:54 PM * Full Code Date Activated Date Inactivated Comments 08/05/2021 7:39 AM 08/05/2021 1:53 PM * Full Code Date Activated Date Inactivated Comments 12/24/2020 7:43 AM 12/24/2020 3:06 PM Care Teams Software Development Engineer Relationship Specialty Start Date End Date Akshat Magana MD [address] [place] [address] PCP - General Family Medicine 06/12/23
--- OUTSIDE RECORDS SUMMARY | 2024-12-17 07:40 | XMS_ITS | Clinical Summary ---
Author Organization [facility] Address [address] [place] [address] Care Team Providers Care Hydraulic Blocker Name Role Phone [facility] [facility] MD Primary Care Provider [phone] Source Comments [facility],non-owned Affiliates and Associated Physician Practices is amultiple site organization consisting of ambulatory clinics and hospital sitesin [place], [place], [place] and [place]. This disclosure is being madepursuant to the Care Everywhere program and may not contain all information available regarding this patient. Last updated 18.[facility] Allergies Active Allergy Reactions Criticality Noted Date Comments Bupropion Unknown,Psychiatric, Seizures High 08/25/2022 delirium delirium Carbamazepine Other,Psychiatric Medium 08/25/2022 Described as delirrium delirium delirium Ciprofloxacin Rash Medium 07/27/2022 [place] Zhang (Diagnostic) Other 09/17/2023 Described as allergy Medications * This document contains information received from the source organization and may not represent a complete record from that organization. * Be aware that medications may not be up to date on this document. Alwaysverify current medications with the patient. pantoprazole EC (PROTONIX) 40 MG tabletIndicatio ns:Gastroesopha geal Reflux Disease Take 1 (one) tablet by mouth once daily Reasons: Gastroesophageal Reflux Disease Active oxyCODONE, immediate release, (Roxicodone) 5 MG tabletIndicatio ns:Acute hypoxemic respiratory failure (HCC) 1 (one) tablet by Enteral Tube route every 4 hours as needed 10/23/19 24 Active aspirin (Aspirin) 81 MG chew tablet 1 (one) tablet by Enteral Tube route once daily 10/24/19 24 Active albuterol-iprat ropium (Duo-Neb) 0.5-2.5 (3) MG/3ML nebulizer solution Inhale 3 mL by mouth every 6 hours as needed for Shortness of Breath or Wheezing 10/23/19 24 Active lacosamide (Vimpat) 200 MG tablet 1 (one) tablet by Enteral Tube route 2 times daily 10/23/19 24 Active levETIRAcetam (Keppra) 1000 MG tablet 2 (two) tablets by Enteral Tube route 2 times daily 10/23/19 24 Active valproic acid (Depakene) 250 MG/5ML solution Take 15 mL by mouth every 8 hours 10/23/19 24 Active atorvastatin (Lipitor) 40 MG tablet 1 (one) tablet by Enteral Tube route at bedtime 10/23/19 24 Active PHENobarbital 60 MG tablet 1 (one) tablet by Enteral Tube route 2 times daily 10/23/19 24 Active polyethylene glycol 3350 (Miralax) 17 g packet 17 (seventeen) g by Enteral Tube route once daily as needed for Constipation 10/23/19 24 Active senna (Senokot) 8.6 MG tablet 1 (one) tablet by Enteral Tube route once daily as needed for Constipation 10/23/19 24 Active levothyroxine (Synthroid) 125 MCG tablet 1 (one) tablet by Enteral Tube route once daily 10/24/19 24 Active enoxaparin (Lovenox) 100 MG/ML injection Inject 100 (one hundred) mg subcutaneously every 12 hours 10/23/19 24 Active sulfamethoxazol e-trimethoprim (Bactrim DS; Septra DS) 800-160 MG tablet 2 (two) tablets by Enteral Tube route every 12 hours 10/23/19 24 Active Active Problems Problem Noted Date Diagnosed Date MRSA pneumonia 10/11/2023 Other specified hypothyroidism 10/11/2023 Encephalopathy 10/10/2023 Oropharyngeal bleeding 10/04/2023 Oral bleeding 10/01/2023 Cystitis, acute 09/30/2023 Aspiration pneumonia 09/30/2023 Acute hypoxemic respiratory failure 09/25/2023 Status epilepticus 09/18/2023 Altered mental status, unspe cified altered mental status type 09/16/2023 Bipolar affective disorder, currently depressed, moderate 11/27/2020 Alcohol abuse 11/27/2020 Immunizations Immunization Administration Dates Next Due INFLUENZA VACCINE, QUADR. (F LUZONE; FLULAVAL; FLUARIX; AFLURIA QUADRIVALENT; 6MO+), 0.5 ML (IIV4) 06/18/2023,11/10/2021 Social History Tobacco Use Types Packs/Day Years Used Date Smoking Tobacco: Every Day Cigarettes 0.5 20 Smokeless Tobacco: Never Tobacco Cessation:Ready to Q uit: No; Counseling Given: No Alcohol Use Standard Drinks/Week Comments Not Currently 0 (1 standard drink = 0.6 oz pur e alcohol) AUDIT-C Answer Date Recorded Q1: How often do you have a drink containing alcohol? Never 10/11/2023 Q2: How many drinks containi ng alcohol do you have on a typical day when you are drinking? Patient does not drink Q3: How often do you have si x or more drinks on one occasion? Never 10/11/2023 Overall Financial Resource Strain (CARDIA) Answe r Date Recorded How hard is it for you to pa y for the very basics like food, housing, medical care, and heating? Patient unable to answer 10/11/2023 [facility] - Occupational Stress Questionnaire Answer Date Recorded Do you feel stress - tense, restless, nervous, or anxious, or unable to sleep at night because your mind is troubled all the time - these days? Patient unable to answer 10/11/2023 Hunger Vital Sign Answer Date Recorded Within the past 12 months, y ou worried that your food would run out before you got the money to buy more. Patient unable to answer 10/11/2023 Within the past 12 months, t he food you bought just didn't last and you didn't have money to get more. Patient unable to answer 10/11/2023 PRAPARE - Transportation Answer Date Re corded In the past 12 months, has l ack of transportation kept you from medical appointments or from getting medications? Patient unable to answer 10/11/2023 In the past 12 months, has l ack of transportation kept you from meetings, work, or from getting things needed for daily living? Patient unable to answer 10/11/2023 Housing Stability Vital Sign Answer Mehul e Recorded In the last 12 months, was t here a time when you were not able to pay the mortgage or rent on time? Patient unable to answer 10/11/2023 In the last 12 months, how m any places have you lived? 1 10/11/2023 In the last 12 months, was t here a time when you did not have a steady place to sleep or slept in a fci (including now)? Patient unable to answer 10/11/2023 Comments No Sex and Gender Information Value Date Recorded Sex Assigned at Not on file Legal Sex Female 1:11 AM CDT Gender Identity Not on file Sexual Orientation Not on file Last Filed Vital Signs Vital Sign Reading Time Taken Comments Blood Pressure 140/75 10/23/2023 5:00 PM [facility] Pulse 85 10/23/2023 5:00 PM [facility] Temperature 37.4 C (99.3 F) 10/23/2023 12:00 PM [facility] Respiratory Rate 18 10/23/2023 5:05 PM [facility] Oxygen Saturation 98% 10/23/2023 5:05 PM [employer] Inhaled Oxygen Concentration 33% 10/23/2023 5 :05 PM [facility] Weight 107 kg (235 lb 14.3 oz) 10/18/2023 4:00 A M [facility] Height 172.7 cm (5' 8 ) 10/10/2023 7:45 PM [facility] Body Mass Index 35.87 10/10/2023 7:45 PM FI[facility] HAND Plan of Treatment Health Maintenance Due Date Last Done Comments COLOGUARD (AGES 45-75) - COL ON CA SCREENING [address] COLONOGRAPHY - COLON CA SCREENING 1968 FIT - COLON CA SCREENING 1968 FLEX SIG - COLON CA SCREENING 1968 PAP SMEAR 1968 DTAP/TDAP/TD VACCINES (1 - Tdap) 1987 HEPATITIS B VACCINE (1 of 3 - 19+ 3-dose series) 1987 PNEUMOCOCCAL VACCINE 50+ (1 of 2 - PCV) 1987 MAMMOGRAM 10/19/2017 10/20/2015, 03/16/2014 ZOSTER VACCINE (1 of 2) 2018 COVID-19 VACCINE (1 - 2023-2 5 season) 2024 MEDICARE AWV CALENDAR YEAR 2024 INFLUENZA VACCINE (Season Ended) 2025 06/18/2023, 11/10/2021 COLONOSCOPY - COLON CA SCREENING 12/24/2030 12/24/2020 Colorectal Cancer Screening 12/24/2030 HEPATITIS C SCREENING Completed 06/19/2023 , 08/10/2022 HIV SCREENING Completed 06/19/2023 HIB VACCINE Aged Out No longer eligi ble based on patient's age to complete this topic HPV VACCINE Aged Out No longer eligi ble based on patient's age to complete this topic MENINGOCOCCAL (Group B) VACCINE SHARED DECISION-MAKING Aged Out No longer eligible based on patient's age to complete this topic MENINGOCOCCAL GROUPS A/C/Y/W VACCINE Aged Out No longer eligible b ased on patient's age to complete this topic Additional Health Concerns Infection Onset Date Last Indicated 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 Source: [facility]. Sputum - 09/26/22, 10/07/23 07/13/2023 MRSA 10/07/2023 10/07/2023 Insurance [employer] MEDICARE ADV HMO & PPO Advance Directives * Full Code (Latest Code Status on File) Date Activated Date Inactivated Comments 10/10/2023 8:25 PM 10/23/2023 6:36 PM * Full Code Date Activated Date Inactivated Comments 09/17/2023 12:03 AM 10/10/2023 7:39 PM * Full Code Date Activated Date Inactivated Comments 11/24/2020 11:07 AM 11/27/2020 1:32 PM * Full Code Date Activated Date Inactivated Comments 11/24/2020 5:47 AM 11/24/2020 11:07 AM Care Teams Hydraulic Blocker Relationship Specialty Start Date End Date [facility]uate [address] MD [address] [place] [address] PCP - General Internal Medicine 08/20/20
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
--- OUTSIDE RECORDS SUMMARY | 2024-12-17 07:40 | XMS_ITS | Encounter Summary ---
Author Organization [facility] Healthcare Address [address] [place] [address] Care Team Providers Care Gold Miner Name Role Phone Cuate St MD Primary Care Provider Akshat Magana MD Primary Care Provider [phone] Encounter Details Date Type Department Care Team (Late st Contact Info) Description 11/07/2021 Documentation [facility] Warm Hand Off Program [address] [place], [place] [phone] Abel Claros Social History Tobacco Use Types Packs/Day Years Used Date Smoking Tobacco: Every Day Cigarettes 1 41 AUDIT-C Answer Date Recorded Q1: How often do you have a drink containing alcohol? 4 or more times a week 11/05/2021 Q2: How many drinks containi ng alcohol do you have on a typical day when you are drinking? 10 or more Q3: How often do you have si x or more drinks on one occasion? 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
--- OUTSIDE RECORDS SUMMARY | 2024-12-17 07:40 | XMS_ITS | Clinical Summary ---
Author Organization [facility] Address [address] [place] [address] Phone Care Team Providers Care Web Consultant Name Role Phone Unavailable Primary Care Provider Unavailabl e Social History Tobacco Use Types Packs/Day Years Used Date Smoking Tobacco: Never Assessed Comments Unknown Sex and Gender Information Value Date Recorded Sex Assigned at Not on file Legal Sex Female 12:25 AM CDT Gender Identity Not on file Sexual Orientation Not on file Plan of Treatment Not on file Insurance MEDICARE C BCBS PPO MICHAEL LOGAN [id number]
--- OUTSIDE RECORDS SUMMARY | 2024-12-17 07:40 | XMS_ITS | Clinical Summary ---
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 Phone Akshat Magana MD Primary Care Provider +- [phone] Allergies No known active allergies Medications levothyroxine [...] (11/15/2020): Added automatically from request for surgery [id number] Encounter for screening colonoscopy 11/15/2020 Overview (11/15/2020): Added automatically from request for surgery [id number] Right upper quadrant abdominal pain 06/22/2015 Cardiac disease 03/16/2014 Rectal mass 03/16/2014 Screening for malignant neoplasm of cervix 03/16 Dysuria 03/16/2014 Lumbago 06/17/2012 Polyp of cervix 03/04/2012 Dysfunctional uterine bleeding 03/04/2012 Hypothyroidism Bipolar disorder Encounters Date Type Department Care Team Description 11/14/2024 Telephone [facility] Primary Care at [address] [place] [phone] Gilmar Miller MD F/u on cancellation request 11/13/2024 Telephone [facility] Primary Care at [address] [place] [address] Gilmar Miller MD Cancellation Request from Last 3 Months Immunizations Immunization Administration Dates Next Due Influenza, Quadrivalent, Spl it, Preservative Free, Intramuscular 06/18/2023,11/10/2021 Surgical History Surgery Date Site/Laterality Comments STOMACH SURGERY Gastric Surgery - (Added by TW Conv) [place] DELIVERY ONLY Section - X3 1988/1989/2004 (Added by TW Conv) ECTOPIC SURGERY Laparoscopy With Excision Of Ectopic - (Added by TW Conv) TX CHOLECYSTECTOMY Cholecystectomy - (Added by TW Conv) TX LIG/TRNSXJ FLP TUBE ABDL/ VAG APPR UNI/BI Tubal Ligation - (Added by TW Conv) TX HYSTEROSCOPY ENDOMETRIAL ABLATION Hysteroscopy With Endometrial Ablation - (Added by TW Conv) COLONOSCOPY 12/24/2020 1st UPPER GASTROINTESTINAL ENDOSCOPY 08/05/2021 Several done previously HERNIA REPAIR Medical History Medical History Date Comments Personal history of arthritis Ar thritis - (Added by TW Conv) Gastric ulcer without hemorr nel or perforation Gastric ulcer - (Added by TW Conv) Personal history of other en docrine, nutritional and metabolic disease History of thyroid d isease - (Added by TW Conv) Personal history of diseases of the blood and blood-forming organs and certain disorders involving the immune mechanism History of an emia - (Added by TW Conv) Personal history of other me ntal and behavioral disorders History of depression - (Add ed by TW Conv) Personal history of other di seases of the musculoskeletal system and connective tissue History of low back pain - ( Added by TW Conv) Encounter for screening for malignant neoplasm of cervix Screening for cervical cance r - (Added by TW Conv) Encounter for screening for infections with predominantly sexual mode of transmission Screening for STD (sexually transmitted disease) - (Added by TW Conv) Encounter for screening for diseases of the blood and blood-forming organs and certain disorders involving the immune mechanism Screening for deficiency ane rufino - (Added by TW Conv) Encounter for screening for other suspected endocrine disorder Screening for endocrine, nutritional, metabolic and immunity disorder - (Added by TW Conv) Right upper quadrant pain Right upper quadrant pain - (Added by TW Conv) Hypothyroidism Bipolar disorder (HCC) History of transfusion Arthritis Family History Medical History Relation Name Comments Diabetes type II Father Type 2 Diab etes Mellitus - (Added by TW Conv) Hypertension Father Hypertension - (Added by TW Conv) Osteoporosis Mother Family history of osteoporosis - (Added by TW Conv) Stroke Mother Stroke Syndrome - (Added by TW Conv) Relation Name Status Comments Father Mother Social History Tobacco Use Types Packs/Day Years [...] on file 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 Gender Identity Not on file Sexual Orientation Not on file Obstetrics History Last Filed Vital Signs Vital Sign Reading [...] 06/14/2023 11:55 AM CDT Plan of Treatment Health Maintenance Due Date Last Done Comments Cervical Cancer Screening 1970 Hepatitis C Screening 1968 Hepatitis B Screening 1986 Regular Well Visit/Exam 18-64 1986 Pneumococcal vaccine <65 (1 of 2 - PCV) 1987 Breast Cancer Screening-Mammogram 03/16/2015 014 Zoster Vaccine (2 of 2) 12/22/2018 10/27/2018 Depression Screening 11/05/2022 11/05/2021 Covid-19 Vaccine (3 - 2023-2 5 season) 2024 10/29/2020, 10/08/2020 Influenza Vaccine (#1) 2024 , 11/10/2021, 04/28/2020, Additional history exists DTaP/Tdap/Td Vaccine (3 - Td or Tdap) 04/11/2029 04/11/2019, 01/16/2013 Colon Cancer Screening-Colonoscopy 12/24/20302020 Procedures Procedure Name Priority Date/Time Associated Diagnosis Comments COLONOSCOPY 12/24/2020 7:44 AM CDT SCREENING MAMMOGRAM W JUAN CARLOS Routine 03/16/2014 1:07 PM CDT from Last 3 Months or Most Recently Relevant to Health Maintenance Results * COLONOSCOPY (12/24/2020 7:44 AM CDT) Anatomical Region Laterality Modality Other Narrative Procedure Note Josafat Kumar MD - 12/24/2020 7:44 AM CDT [facility] Patient Name: Jolanta Montes Procedure Date: 12/24/2020 7:44 AM Date of : 1970 Admit Type: Outpatient Age: 50 Gender: Female Attending MD: Josafat Kumar M.D. Room: [facility] ENDOSCOPY ROOM 2 Note Status: Finalized Patient [...] scope was passed under direct vision. TheColonoscope [id number] was introduced through the anus and advanced [...] of colon CPT copyright 2019 [employer] [place] [employer]. All rights reserved. The codes documented in this report are preliminary and upon sales market leader reviewmay be revised to meet current compliance requirements. Recognized by the [place] [employer] for promoting quality in endoscopy Josafat Kumar MD ENDOSCOPY PROCEDURES Final Re sult * Screening Mammogram W Juan Carlos (03/16/2014 1:07 PM CDT) Anatomical Region Laterality Modality Breast N/A Mammography 03/16/2014 1:07 PM CDT Narrative 03/18/2014 10:18 AM CDT LENORA VALLE M.D. FINAL REPORT ACC# Date Time Exam [id number] Mar 16, 2014 13:07:00 [facility] [id number] Bilateral screen w juan carlos Technologist(s): Blanche Nazario; ; EXAMINATION: Mammogram Technique: Bilateral Bilateral Full-Field Digital Screening Mammogram and Digital Breast Tomosynthesis were performed. Views obtained: bilateral craniocaudal and bilateral mediolateral oblique. Computer Aided Detection of the 2D images was performed with [employer].3 version 9.3. Mammogram Findings: The present examination has been compared to a prior imaging study performed at [facility] on 03/04/2012. There are scattered fibroglandular densities. [...] M.D. FINAL REPORT ACC# Date Time Exam [id number] Mar 16, 2014 13:07:00 [facility] [id number] Bilateral screen w juan carlos Technologist(s): Blanche Nazario; ; EXAMINATION: Mammogram Technique: Bilateral Bilateral Full-Field Digital Screening Mammogram and Digital Breast Tomosynthesis were performed. Views obtained: bilateral craniocaudal and bilateral mediolateral oblique. Computer AidedDetection of the 2D images was performed with [employer] 1.3 version 9.3. Mammogram Findings: The present examination has been compared to a prior imaging study performed at [facility] on 03/04/2012. There are scattered fibroglandular densities. There is no suspicious abnormality in either breast. IMPRESSION: Annual screening mammography is recommended. OVERALL FINAL ASSESSMENT: BI-RADS CATEGORY 1: Negative. Requested By: Darlene Ace M.D. Dictated By: LENORA VALLE M.D. on Mar 18 2014 10:18A This document has been electronically signed by: LENORA VALLE M.D. on Mar 18 2014 10:17A Historical Provider MD [facility] MAMMO PROCEDURES Karlie l Result from Last 3 Months or Most Recently Relevant to Health Maintenance Insurance MEDICARE [facility] CHOICE PLUS [facility] HMO/PPO Address: [address] [address] [place] [address] [employer] OPEN ACCESS Advance Directives For more information, please contact: [phone] * Full Code (Latest Code Status on File) Date Activated Date Inactivated Comments 06/14/2023 1:07 PM 06/18/2023 3:43 PM * Full Code Date Activated Date Inactivated Comments 11/05/2021 1:49 PM 11/10/2021 12:54 PM * Full Code Date Activated Date Inactivated Comments 08/05/2021 7:39 AM 08/05/2021 1:53 PM * Full Code Date Activated Date Inactivated Comments 12/24/2020 7:43 AM 12/24/2020 3:06 PM 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
--- OUTSIDE RECORDS SUMMARY | 2024-12-17 07:41 | XMS_ITS | Clinical Summary ---
Author Organization [facility] Address [facility] [place] [address] Care Team Providers Care Gas Mask Inspector Name Role Phone Pallavi Rahman MD Unavailable Josephine Aguilar MD Unavailable [phone] Eric Gauthier MD Unavailable [phone] Demetri Edwards MD Unavailable [phone] Ronaldo Weston DO Primary Care Provider [phone] Allergies Active Allergy Reactions Criticality Noted Date Comments Bupropion Seizure,Other (see comment) 08/25/2022 delirium Carbamazepine Other (see comment) 08/25/2022 delirium Ciprofloxacin Rash Medium 07/27/2022 Clarithromycin Unknown 08/15/2018 [place] Zhang (Diagnostic) Unknown 01/28/2016 Tape Other (see comment) 05/20/2024 blisters from plastic tape Medications DULoxetine HCl 60 MG Capsule Delayed Release SprinkleIndicatio ns:Depression Take 60 mg by mouth daily. Indications: Depression Active levothyroxine (SYNTHROID) 150 MCG tabletIndications :Hypothyroidism Take 1 capsule by mouth daily. Indications: Underactive Thyroid Active gabapentin (NEURONTIN) 800 MG tabletIndications :Neuropathy Take 800 mg by mouth 2 (two) times daily. Indications: Nerve Disease 11/21/19 Active magnesium oxide (MAG-OX) 400 (240 Mg) MG tabletIndications :Magnesium Deficiency Take 1 tablet (400 mg total) by mouth daily. Indications: Magnesium Deficiency Active Lacosamide 200 MG TabIndications:Se izure Take 200 mg by mouth 2 (two) times a day. Indications: Seizure 08/31/19 24 Active propafenone (RYTHMOL) 150 MG tabletIndications :Atrial Fibrillation Take 1 tablet (150 mg total) by mouth 2 (two) times a day. Indications: Atrial Fibrillation Active NIFEdipine XL (PROCARDIA XL) 90 MG 24 hr tabletIndications :Hypertension Take 1 tablet (90 mg total) by mouth daily. Indications: High Blood Pressure Active pantoprazole EC (PROTONIX) 40 MG tabletIndications :Acid Regurgitation Take 1 tablet (40 mg total) by mouth daily. Indications: Acid Regurgitation Active Oxymetazoline HCl (AFRIN 12 HOUR NA)Indications:Na reza Congestion 1 spray by Nasal route every 12 (twelve) hours. Indications: Stuffy Nose 05/20/20 24 Active Multiple Vitamins-Minerals (EQL [facility] OR)Indications:Vi tamin and/or Mineral Deficiency Take 1 tablet by mouth daily. Indications: Vitamin and/or Mineral Deficiency 05/20/20 24 Active vitamin B-12 (CYANOCOBALAMIN) 1000 MCG tabletIndications :Vitamin B12 Deficiency Take 1 tablet (1,000 mcg total) by mouth daily. Indications: Inadequate Vitamin B12 05/20/20 Active vitamin D3 (VITAMIN D) 25 mcg tabletIndications :Vitamin D Deficiency Take 1 tablet (25 mcg total) by mouth daily. Indications: Vitamin D Deficiency 05/20/20 24 Active Thiamine Mononitrate (B1 OR)Indications:Vi tamin B Deficiency Take 1 tablet by mouth daily. Indications: Vitamin B Deficiency 05/20/20 24 Active CALCIUM CITRATE ORIndications:Vit brush and/or Mineral Deficiency Take 600 mg by mouth daily. Indications: Vitamin and/or Mineral Deficiency 05/20/20 24 Active acetaminophen (TYLENOL) 325 MG tabletIndications :Pain Take 2 tablets (650 mg total) by mouth every 6 (six) hours as needed. Indications: Pain 05/20/20 24 Active traZODone (DESYREL) 100 MG tabletIndications :Insomnia Take 1 tablet by mouth nightly at bedtime. Indications: Trouble Sleeping 05/23/20 24 Active apixaban (ELIQUIS) 5 MG tabletIndications :Anticoagulant Therapy Take 5 mg by mouth 2 (two) times daily. Indications: Anticoagulant Therapy 06/25/20 24 Active Active Problems Problem Noted Date Diagnosed Date Open wound of anterior abdominal wall, subsequen t encounter 06/09/2024 Non-healing surgical wound, subsequent encounter 06/09/2024 Unresponsive 05/13/2024 PRES (posterior reversible encephalopathy syndro me) 08/10/2023 Encephalopathy 07/10/2023 Altered mental status 07/09/2023 Acute left ankle pain 12/29/2022 Other closed fracture of pro ximal end of right fibula, initial encounter 12/29/2022 Other closed fracture of dis jude end of right fibula, initial encounter 12/29/2022 Closed nondisplaced fracture of fifth metatarsal bone of left foot, initial encounter 12/29/2022 Cerebellar stroke ([facility]) 08/08/2022 CVA (cerebral vascular accident) ([facility]) 07/31/2022 Acute embolic stroke ([facility]) 2 Acute embolic stroke ([facility]) 2 AMS (altered mental status) 07/27/2022 Encounters Date Type Department Care Team Description 10/15/2024 8:24 AM ROTO MIXER OPERATOR - 10/15/2024 11:59 PM ROTO MIXER OPERATOR Hospital Encounter [facility] [address] [place] [address] Samina Cali FNP Discharge Disposition: Home or Self Care (Routine Discharge) 10/15/2024 Travel 10/06/2024 8:53 AM ROTO MIXER OPERATOR - 10/06/2024 11:59 PM ROTO MIXER OPERATOR Hospital Encounter [facility] [address] [place] [address] Cecile Nieto, WILFREDO Discharge Disposition: Home or Self Care (Routine Discharge) 10/06/2024 Travel 10/01/2024 8:52 AM ROTO MIXER OPERATOR - 10/01/2024 11:59 PM ROTO MIXER OPERATOR Hospital Encounter [facility] [address] [place] [address] Samina Cali FNP Discharge Disposition: Home or Self Care (Routine Discharge) 10/01/2024 Travel 09/24/2024 8:57 AM ROTO MIXER OPERATOR - 09/24/2024 11:59 PM ROTO MIXER OPERATOR Hospital Encounter [facility] [address] [address] Samina Cali, CONTRACT ASSISTANT Discharge Disposition: Home or Self Care (Routine Discharge) 09/24/2024 Travel from Last 3 Months Family History Medical History Relation Comments Cancer Father Heart Father Heart murmur Mother Hyperlipidemia Mother Relation Status Comments Father Mother Social History Tobacco Use Types Packs/Day Years Used Date Smoking Tobacco: Every Day Cigarettes 1.5 42.3 Started: 2024; Last attempted to quit: 2023 Smokeless Tobacco: Never Tobacco Cessation:Ready to Q uit: Not Asked; Counseling Given: Not Answered Alcohol Use Standard Drinks/Week Comments Not Currently 16.7 (1 standard drink = 0.6 oz pure alcohol) hx of alcoholism OASIS D0700: Social Isolation Answer Da te Recorded Frequency of experiencing loneliness or isolatio n Never 07/25/2024 OASIS A1250: Transportation Answer Date Recorded Lack of Transportation (Medical) No 07/25/2024 Lack of Transportation (Non-Medical) No 07/25/2024 Patient Unable or Declines to Respond No 07/25/2024 OASIS B1300: Health Literacy Answer Mehul e Recorded Frequency of needing help to read materials from doctor or pharmacy Never 07/25/[address] [facility] Utilities Answer Date Recorded In the past 12 months has th e [employer], gas, oil, or water [employer] threatened to shut off services in your home? No 05/14/2024 Humiliation, Afraid, Rape, and Kick questionnair e Answer Date Recorded Within the last year, have y ou been afraid of your partner or ex-partner? No 05/14/2024 Within the last year, have y ou been humiliated or emotionally abused in other ways by your partner or ex-partner? No Within the last year, have y ou been kicked, hit, slapped, or otherwise physically hurt by your partner or ex-partner? No 05/14/2024 Within the last year, have y ou been raped or forced to have any kind of sexual activity by your partner or ex-partner? No 05/14/2024 Overall Financial Resource Strain (CARDIA) Answe r Date Recorded How hard is it for you to pa y for the very basics like food, housing, medical care, and heating? Somewhat hard 05/14/2024 Hunger Vital Sign Answer Date Recorded Within the past 12 months, y ou worried that your food would run out before you got the money to buy more. Never true 05/14/20 24 Within the past 12 months, t he food you bought just didn't last and you didn't have money to get more. Never true 05/14/2024 PRAPARE - Transportation Answer Date Re corded In the past 12 months, has l ack of transportation kept you from medical appointments or from getting medications? No 04/21 In the past 12 months, has l ack of transportation kept you from meetings, work, or from getting things needed for daily living? No 05/14/2024 Housing Stability Vital Sign Answer Mehul e [...] place to sleep or slept in a senior care (including now)? No 07/20/2023 Housing Stability Vital Sign Answer Mehul e Recorded In the last 12 months, was t here a time when you were not able to pay the mortgage or rent on time? No 05/14/2024 In the past 12 months, how m any times have you moved where you were living? 0 05/14/2024 At any time in the past 12 m [facility], were you homeless or living in a senior care (including now)? No 05/14/2024 Comments No Sex and Gender Information Value Date Recorded Sex Assigned at Female 09/03/2024 11:46 AM ROTO MIXER OPERATOR Legal Sex Female 2:43 AM CDT Gender Identity Not on file Sexual Orientation Not on file Last Filed Vital Signs Vital Sign Reading Time Taken Comments Blood Pressure 125/67 09/10/2024 9:57 AM ROTO MIXER OPERATOR Pulse 85 09/10/2024 9:57 AM ROTO MIXER OPERATOR Temperature 36.7 C (98 F) 07/18/2024 10:32 AM ROTO MIXER OPERATOR Respiratory Rate 16 09/10/2024 9:57 AM ROTO MIXER OPERATOR Oxygen Saturation 98% 09/10/2024 9:57 AM ROTO MIXER OPERATOR Inhaled Oxygen Concentration - - Weight 99.2 kg (218 lb 9.6 oz) 09/10/2024 9:57 A M ROTO MIXER OPERATOR Height 175.3 cm (5' 9 ) 09/10/2024 9:57 AM ROTO MIXER OPERATOR Body Mass Index 32.28 09/10/2024 9:57 AM ROTO MIXER OPERATOR Plan of Treatment Health Maintenance Due Date Last Done Comments Cervical Cancer Screening Pa p Smear (Age 30 to 64) Every 3 Years 1968 Colorectal Cancer Screening Colonoscopy (10 Years) 1968 Annual Physical 1971 Hepatitis B Vaccines (1 of 3 - 19+ 3-dose series) 1987 Pneumococcal Vaccine: 50+ Years (1 of 2 - PCV) 1987 Cervical Cancer Screening Pa p with HPV Testing (Age 30 to 64) Every 5 Years 1998 Cervical Cancer Screening wi th HPV 1998 Mammogram Screening 2008 Zoster Vaccines (2 of 2) 12/22/2018 10/27/2018 COVID-19 Vaccine (3 - 2023-2 5 season) 2024 10/29/2020, 10/08/2020 PHQ-2 (Physician [place]) 08/20/2024 Lung Cancer Screening 09/25/2024 09/25/2023 , 09/16/2023 DTaP, Tdap and Td Vaccines ( 3 - Td or Tdap) 04/11/2029 04/11/2019, 01/16/2013 Hepatitis C Completed 06/19/2023, 06/19/2023, 08/10/2022 Meningococcal B Vaccine Aged Out No l onger eligible based on patient's age to complete this topic Meningococcal Vaccine Aged Out No nena ciara eligible based on patient's age to complete this topic RSV Immunizations Under 20 Months Aged Out No longer eligible b ased on patient's age to complete this topic Goals Goal Patient Goal Type Associated Problems Recent Progress Patient-Stated? Author Family - family caregiver with be involved in care transitions and discharge planning Lifestyle No Kathryn Farrell RN Safety - able to safely ambulate at home; tripping hazards removed from the home Lifestyle No Madyson Ortega warehouse shipping receiving clerk Procedure Name Priority Date/Time Associated Diagnosis Comments CULTURE, WOUND, W/GRAM STAIN Routine 10/06/2024 9:12 AM ROTO MIXER OPERATOR Non-healing surgical wound, subsequent encounter CT CHEST+ABD+PEL WO CON STAT 09/16/2023 2:00 AM ROTO MIXER OPERATOR HEPATITIS PANEL,ACUTE Routine 08/10/2022 5:35 PM ROTO MIXER OPERATOR from Last 3 Months or Most Recently Relevant to Health Maintenance Results * CULTURE, WOUND, W/GRAM STAIN (10/06/2024 9:12 AM ROTO MIXER OPERATOR) SPEC DESCRIPTION ABDOMEN 10/06/2024 10:52 AM ROTO MIXER OPERATOR [facility] SPECIAL REQUESTS NO SPECIAL REQUEST 10/06/2024 10:52 AM ROTO MIXER OPERATOR [facility] GRAM STAIN RESULT NO ORGANISMS SEEN 10/06/2024 1:19 PM ROTO MIXER OPERATOR [facility] GRAM STAIN RESULT NO WBC SEEN 10/06/2024 1:19 PM ROTO MIXER OPERATOR [facility] CULTURE RESULT MANY STAPHYLOCOCCU S, COAGULASE NEGATIVE 10/08/2024 9:23 AM ROTO MIXER OPERATOR [facility] CULTURE RESULT MANY DIPHTHEROIDS 10/08/2024 9:23 AM ROTO MIXER OPERATOR [facility] SWAB FROM ABDOMEN / Unknown 10/06/2024 9:12 AM ROTO MIXER OPERATOR 10/06/2024 12:50 PM ROTO MIXER OPERATOR us Cecile Nieto NP MICROBIOLOGY - GENERAL ORDERA BLES Final Result [facility] [address] [place] [address], [place] [phone] [id number] [facility] [address] [place] [address], [place] [phone] * CT CHEST+ABD+PEL WO CON (09/16/2023 2:00 AM ROTO MIXER OPERATOR) Anatomical Region Laterality Modality Chest, Abdomen, Pelvis Computed Tomography 09/16/2023 2:05 AM ROTO MIXER OPERATOR Impressions 09/16/2023 2:12 AM ROTO MIXER OPERATOR IMPRESSION: Increased stool throughout the colon and rectum. Small amount of gas within the right femoral vein and a tributary vein, likely iatrogenic. Referred By: Interpreted By: Josafat Bansal MD, 09/16/2023 2:05 AM Narrative 09/16/2023 2:12 AM ROTO MIXER OPER[address] CT of the chest, abdomen and pelvis without contrast INDICATION: Sepsis. Unresponsive. COMPARISON: None. TECHNIQUE: Axial, coronal and sagittal noncontrast images from the supraclavicular region through the pubic symphysis. Radiation dose reduction technique(s) were used. FINDINGS: Heart size is normal. No pericardial effusion. Granulomatous mediastinal lymph nodes noted. No mediastinal, hilar or axillary adenopathy. Included portions of the thyroid are unremarkable. Evaluation the lung shows minimal right lower lobe atelectasis. Left apical granuloma is noted. No infiltrates. No evidence for aspiration. No suspicious nodules. No pleural fluid or pneumothorax. Cholecystectomy is noted. The liver, spleen, pancreas, adrenals and kidneys are unremarkable on noncontrast CT. No hydronephrosis or ureteral calculus. No upper abdominal or periaortic adenopathy. There is aortoiliac calcification. Scans the pelvis show no mass, lymphadenopathy or fluid free fluid. No bladder wall thickening or bladder calculus. Some gas is identified within the right femoral vein and a tributary vein which may be iatrogenic. Previous gastric surgery is noted. No small bowel obstruction. No free air. A benign calcification in the right iliac fossa may be due to fat necrosis The appendix is normal. There is moderately increased stool seen throughout the colon and rectum. No evidence for colitis or diverticulitis. No acute bony abnormality. Procedure Note Josafat Bansal MD - 09/16/2023 CT of the chest, abdomen and pelvis without contrast INDICATION: Sepsis. Unresponsive. COMPARISON: None. TECHNIQUE: Axial, coronal and sagittal noncontrast images from thesupraclavicular region through the pubic symphysis. Radiation dose reduction technique(s) were used. FINDINGS: Heart size is normal. No pericardial effusion. Granulomatousmediastinal lymph nodes noted. No mediastinal, hilar or axillaryadenopathy. Included portions of the thyroid are unremarkable. Evaluation the lung shows minimal right lower lobe atelectasis. Leftapical granuloma is noted. No infiltrates. No evidence for aspiration.No suspicious nodules. No pleural fluid or pneumothorax. Cholecystectomy is noted. The liver, spleen, pancreas, adrenals andkidneys are unremarkable on noncontrast CT. No hydronephrosis or ureteralcalculus. No upper abdominal or periaortic adenopathy. There isaortoiliac calcification. Scans the pelvis show no mass, lymphadenopathy or fluid free fluid. Nobladder wall thickening or bladder calculus. Some gas is identifiedwithin the right femoral vein and a tributary vein which may beiatrogenic. Previous gastric surgery is noted. No small bowel obstruction. No freeair. A benign calcification in the right iliac fossa may be due to fatnecrosis The appendix is normal. There is moderately increased stool seenthroughout the colon and rectum. No evidence for colitis ordiverticulitis. No acute bony abnormality. IMPRESSION: Increased stool throughout the colon and rectum. Small amount of gas within the right femoral vein and a tributary vein,likely iatrogenic. Referred By: Interpreted By: Josafat Bansal MD, 09/16/2023 2:05 AM us Marybeth Garcia MD CT Final Res ult * (ABNORMAL) HEPATITIS PANEL,ACUTE (08/10/2022 5:35 PM ROTO MIXER OPERATOR) HEPATITIS B SURFACE AG NON-REACTIVE NON-REACT MICHELLE 08/11/2022 12:43 AM ROTO MIXER OPERATOR [facility] Comment:HBsAg NOT DETECTED. HEP B CORE IGM NON-REACTIVE NON-REACT MICHELLE 08/11/2022 12:43 AM ROTO MIXER OPERATOR [facility] Comment: IgM ANTI HBc NOT DETECTED. DOES NOT EXCLUDE THE POSSIBILITY OF EXPOSURE TO OR INFECTION WITH HBV. NO RETEST REQUIRED. HIGH DOSES OF BIOTIN MAY INTERFERE WITH THIS TEST RESULT. CORRELATION TO CLINICAL HISTORY AND PRESENTATION RECOMMENDED. HAV IGM NON-REACTIVE NON-REACT MICHELLE 08/11/2022 12:43 AM ROTO MIXER OPERATOR [facility] Comment: IgM ANTI HAV NOT DETECTED. DOES NOT EXCLUDE THE POSSIBILITY OF EXPOSURE TO OR INFECTION WITH HAV. LEVELS OF IgM ANTI HAV MAY BE BELOW THE CUTOFF IN EARLY INFECTION. HEPATITIS C AB EQUIVOCAL RESULT(A) NON-REACT MICHELLE 08/11/2022 12:43 AM ROTO MIXER OPERATOR [facility] Comment: Repeatedly inconclusive result for Hepatitis C Antibody. Repeat testing on a new specimen from the patient or additional testing by PCR for HCV virus is recommended. 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/13/2023 09/05/2024 Insurance Advance Directives Documents on File Type Date Recorded Patient Tennis Desk Team Member Expl anation Advance Directives and Living Will 10/25/2016 12:00 AM ADVANCED DIRECTIVES Advance Directives and Living Will 03/28/2016 12:00 AM ADVANCED DIRECTIVES * Full Code (Latest Code Status on File) Date Activated Date Inactivated Comments 06/25/2024 12:00 PM * Full Code Date Activated Date Inactivated Comments 05/20/2024 2:30 PM 06/12/2024 8:24 AM filled out POLST form during visit * Full Code Date Activated Date Inactivated Comments 05/13/2024 7:22 PM 05/16/2024 3:59 PM * Full Code Date Activated Date Inactivated Comments 07/13/2023 11:26 AM 07/23/2023 3:56 PM * Full Code Date Activated Date Inactivated Comments 07/09/2023 3:13 AM 07/13/2023 11:26 AM Healthcare Agents on File Name Relationship Healthcare Agent Relationshi p Communication Sandeep Jackson Health Care Agent Care Teams Gas Mask Inspector Relationship Specialty Start Date End Date Ronaldo Weston DO [address] [place] [address] PCP - General FAMILY PRACTICE 09/10/24 Pallavi Rahman MD [address] [place] [address] Consulting Physician CARDIOVASCULAR DISEASE 08/25/22 Josephine Aguilar MD [address] [place] [phone] Physician FAMILY PRACTICE 03/14/23 Eric Gauthier MD [address] [place] [id number] Consulting Physician CLINICAL CARDIAC ELECTROPHYSIOLOGY 06/18/23 Demetri Edwards MD [address] [place] [address] Consulting Physician SURGERY 05/07/24 05/07/25
--- NOTE | 2024-12-17 07:47 | ECHO_ITS ---
Patient Info Name: Jolanta Montes Age: 54 years : 1970 Gender: Female Ht: 69 in Wt: 208 lbs BSA: 2.17 m2 HR: 67 bpm BP: 115 / 76 mmHg Technical Quality: Good Exam Date: 12/17/2024 8:10 AM Exam Location: Echo Lab Patient Status: Outpatient Admit Date: 12/17/2024 Staff Ordering Physician: Aaron Ca DO C Consultant: Mayela Fernandez RDCS Attending Provider: Aaron Ca DO Referring Physician: Roby HERMAN; Exam Type: CA echo doppler color flow Study Info Indications R06.00 - Dyspnea, unspecified Complete two-dimensional, color flow and Doppler transthoracic echocardiogram is performed. Summary 1. Complete two-dimensional, color flow and Doppler transthoracic echocardiogram is performed. 2. Left ventricular chamber dimension is normal. 3. Left ventricular systolic function is normal, estimated at 60-65%. 4. The left ventricular diastolic function is normal. 5. E/e' 7 is not elevated. 6. Left atrial chamber dimension is mildly enlarged. 7. There is trace mitral valve regurgitation. 8. There is trace tricuspid valve regurgitation. 9. No pulmonary hypertension, estimated pulmonary arterial systolic pressure is 30 mmHg. Left Ventricle E/e' 7 is not elevated. Left ventricular chamber dimension is normal. Left ventricular systolic function is normal, estimated at 60-65%. The left ventricular diastolic function is normal. Right Ventricle Right ventricular chamber dimension is normal. Right ventricular systolic function is normal. Left Atria Left atrial chamber dimension is mildly enlarged. Right Atria Right atrial chamber dimension is normal. Aortic Valve The aortic valve is trileaflet. There is no aortic valve stenosis. There is no aortic valve regurgitation. Pulmonic Valve There is no pulmonic regurgitation. Mitral Valve There is no mitral valve stenosis. There is trace mitral valve regurgitation. Tricuspid Valve There is trace tricuspid valve regurgitation. No pulmonary hypertension, estimated pulmonary arterial systolic pressure is 30 mmHg. Pericardium/Pleural There is no pericardial effusion. Inferior Vena Cava Normal inferior vena cava with >50% collapse upon inspiration consistent with normal right atrial pressure, 5 mmHg. Aorta The aortic root size at the sinus of Valsalva is normal. Left Ventricular Outflow Tract Name Value Normal LVOT 2D LVOT Diameter 1.9 cm LVOT Doppler LVOT Peak Gradient 7 mmHg LVOT Mean Gradient 4 mmHg LVOT VTI 31 cm LVOT VTI/AV VTI Ratio 1.0 LVOT Stroke Volume 90 ml LVOT CO 17.0 l/min LVOT CI 7.8 l/min/m2 Pulmonic Valve Name Value Normal PV Doppler PV Peak Gradient 6 mmHg Mitral Valve Name Value Normal MV Doppler MV Decel Shack[place] 290 cm/s2 MV PHT 80 ms MV Area (PHT) 2.8 cm2 4.0-5.0 MV Diastolic Function MV E Peak Velocity 80 cm/s MV A Peak Velocity 79 cm/s MV E/A 1.0 MV Decel Time 274 ms MV Annular TDI MV E/e' (Septal) 9.4 <=8.0 MV E/e' (Lateral) 6.6 <=8.0 MV E/e' (Average) 8.0 Tricuspid Valve Name Value Normal TV Regurgitation Doppler TR Peak Velocity 248 cm/s TR Peak Gradient 25 mmHg Estimated PAP/RSVP RA Pressure 5 mmHg <=5 PA Systolic Pressure 30 mmHg <36 RV Systolic Pressure 30 mmHg <36 Aorta Name Value Normal Ascending Aorta Ao Root Diameter (MM) 3.2 cm Ao Root Diam Index (MM) 1.5 cm/m2 Aortic Valve Name Value Normal AV Doppler AV Peak Velocity 132 cm/s AV Peak Gradient 7 mmHg AV Mean Gradient 4 mmHg AV VTI 31 cm AV Area (Cont Eq VTI) 2.9 cm2 >=3.0 AV Area (Cont Eq Joshua) 3.1 cm2 AV Regurgitation 2D LVOT Area 3.0 cm2 Ventricles Name Value Normal LV Dimensions 2D/MM IVS Diastolic Thickness (2D) 1.4 cm 0.6-1.0 LVID Diastole (2D) 3.6 cm 3.8-5.2 LVIW Diastolic Thickness (2D) 1.1 cm 0.6-0.9 LVID Systole (2D) 2.6 cm 2.2-3.5 LVOT Diameter 1.9 cm LV Mass (2D Cubed) 148.82 g 67.00-162.00 LV Mass Index (2D Cubed) 69 g/m2 43-95 Relative Wall Thickness (2D) 0.60 LV Fractional Shortening/Ejection Fraction 2D/MM LV Fractional Shortening (2D) 26 % 27-45 LV EF (2D Teicholz) 53 % 54-74 LV Diastolic Volume (4C MOD) 89 ml LV EF (4C MOD) 56 % LV Diastolic Volume (2C MOD) 78 ml LV EF (2C MOD) 64 % LV Diastolic Volume (BP MOD) 85 ml 46-106 LV Diastolic Volume Index (BP MOD) 39 ml/m2 29-61 LV Systolic Volume (BP MOD) 33 ml 14-42 LV Systolic Volume Index (BP MOD) 15 ml/m2 8-24 LV EF (BP MOD) 61 % 54-74 LV Diastolic Length (4C) 8.4 cm LV Systolic Length (4C) 7.0 cm LV Stroke Volume (4C MOD) 49 ml RV Dimensions 2D/MM RVID Diastole (2D) 3.6 cm 2.5-3.5 Atria Name Value Normal LA Dimensions LA Dimension (MM) 4.2 cm 2.7-3.8 LA Volume (4C A-L) 47 ml LA Volume (BP A-L) 53 ml RA Dimensions RA Area (4C) 15.4 cm2 <=18.0 Report Signatures
--- NOTE | 2024-12-17 07:47 | EST_ITS ---
Patient Info Name: Jolanta Montes Age: 54 years : 1970 Gender: Female Ht: 69 in Wt: 208 lbs BSA: 2.17 m2 HR: 95 bpm BP: 146 / 85 mmHg Exam Date: 12/17/2024 9:28 AM Exam Location: Echo Lab Patient Status: Outpatient Admit Date: 12/17/2024 Staff Ordering Physician: Aaron Ca DO Attending Provider: Aaron Ca DO Exercise Technologist: Mariia Aranda RD Exercise Physician: Aaron Ca DO Exam Type: CA stress sybil w NM Study Info A regadenoson stress test was performed. Summary 1. 1. Negative lexiscan stress test for ischemic ST changes by ECG criteria. 2. 2. Stable hemodynamics throughout the test. 3. 3. Nuclear scan to follow and will be reported separately. Please correlate with it. 4. 4. Patient informed of the above results. Protocol: Lexiscan Stress ECG Details Stage: REST Duration (min): 1 min : 12 sec HR (bpm): 93 SBP (mmHg): 146 DBP (mmHg): 85 Stage: REST Duration (min): 11 min : 2 sec HR (bpm): 99 SBP (mmHg): 146 DBP (mmHg): 85 Stage: STAGE 1 Duration (min): 0 min : 59 sec HR (bpm): 99 SBP (mmHg): 129 DBP (mmHg): 93 Stage: RECOVERY Duration (min): 1 min : 0 sec HR (bpm): 106 SBP (mmHg): 129 DBP (mmHg): 93 Stage: RECOVERY Duration (min): 2 min : 0 sec HR (bpm): 102 SBP (mmHg): 129 DBP (mmHg): 93 Stage: RECOVERY Duration (min): 3 min : 0 sec HR (bpm): 93 SBP (mmHg): 129 DBP (mmHg): 87 Stage: RECOVERY Duration (min): 3 min : 6 sec HR (bpm): 96 SBP (mmHg): 129 DBP (mmHg): 87 Rest HR: 99 bpm Peak HR: 115 bpm Rest Sys BP: 146 mmHg Peak Sys BP: 129 mmHg Max Pred HR: 164 bpm % Max Pred HR: 70 % Target HR: 139 bpm Max RPP: 14,835 bpm*mmHg Termination Reason: Completed protocol Cardiac Symptoms: Shortness of breath Total Time: 1 min : 0 sec Rest Cervantes BP: 85 mmHg Peak Cervantes BP: 93 mmHg Total Dose: 0.4 mg Resting ECG Atrial fibrillation. Stress ECG No ST changes. Arrhythmias No other arrhythmias. Report Signatures
== END 2024-12-17 07:32 | disposition home or self-care (01) ==
PROVIDERS: PCP Family Medicine; Visit Provider Internal Medicine Cardiovascular Disease
DX: R06.09 Other forms of dyspnea (principal); R07.9 Chest pain, unspecified
CPT/HCPCS: 78452; 93017; 93306; A9502; J2785

== ENCOUNTER 2025-02-05 09:10 | Emergency (ER) | payer MEDICARE, SELFPAY ==
[2025-02-05 09:10] VITALS: BP 143/83; PULSE 99; RESP 18; TEMP 35.8; O2SAT 97
--- NOTE | 2025-02-05 09:30 | ECG_ITS ---
Test Date: 2025-02-05 09:47:03 Measurements Intervals Murdock Rate: 80 P: 45 IN: 162 QRS: 5 QRSD: 85 T: 32 QT: 384 QTc: 446 Interpretive Statements SINUS RHYTHM EARLY PRECORDIAL R/S TRANSITION LEFT VENTRICULAR HYPERTROPHY MINIMAL Q WAVES- HIGH LATERAL LEADS BORDERLINE ECG COMPARED WITH PRIOR ECG 05-13-24 15:12 HEART RATE HAS DECREASED Electronically Signed On 02-05-2025 09:53:31 CDT by Aaron Ca D.O.
--- NOTE | 2025-02-05 09:32 | ED_ITS ---
HPI - Psych General Chief Complaint: Psychiatric Symptoms Stated Complaint: psychiatric symptoms Time Seen by Provider: 02/05/25 09:30 Source: patient Mode of arrival: ambulatory Limitations: no limitations History of Present Illness HPI Narrative: this is a 54-year-old female with a history of schizoaffective disorder brought over by her primary care physician with suicidal ideation and homicidal ideations, for the past several months patient has been having visual and auditory hallucinations, has a history of suicide attempt with overdose of Vicodin.. Patient with a history of CVA hypertension , hypothyroidism, depression. Currently comfortable with no chest pain no shortness of breath no abdominal pain no flank pain no fever chills. complaint: suicidal ideation Onset (ago): week(s) Duration: constant History of same: Yes Relieving factors: none Exacerbating factors: none Related Data Home Medications ?Medication ?Instructions ?Recorded ?Confirmed ?Last Taken ?Type duloxetine 60 mg capsule,delayed 120 mg PO DAILY 07/25/19 11/06/24 07/25/19 History release aspirin 81 mg chewable tablet 81 mg PO DAILY 09/03/22 11/06/24 Unknown History lacosamide 200 mg tablet 200 mg PO BID 05/13/24 11/06/24 Unknown History magnesium oxide-magnesium amino 400 cap PO DAILY 05/13/24 11/06/24 Unknown History acid chelate 300 mg capsule (Magnesium (oxide/AA chelate)) Allergies Allergy/AdvReac Type Severity Reaction Status Date / Time ciprofloxacin Allergy Itching Verified 02/05/25 09:28 Review of Systems 2 Review of Systems: All systems reviewed & are unremarkable except as noted in HPI and below PMFSH Past Medical History Medical History Seizure as late effect of cerebrovascular accident (CVA) Hiatal hernia Hyperthyroidism Surgical History Surgical History Previous section History of cholecystectomy History of Brandan-en-Y gastric bypass Social History Social History Smoking packs per day: 1 Smoking cigarettes per day: 20.0 Smoking status: Never smoker Tobacco type: cigarettes Alcohol intake: current Alcohol use details: Beer Substance use: never Substance use type: does not use Do You Feel Safe in your Home?: Yes Living arrangements: with family Gender identity (if verbalized by the patient): Female Exam 2 Const: General: no acute distress and alert Nutritional Appearance: well nourished Orientation/consciousness: patient oriented x3 Limitations: no limitations HENMT: Head: normal to inspection Neck: Neck: normal visual inspection, no lymphadenopathy and no meningeal signs Chest: Chest palpation & inspection: normal inspection of the chest Resp: Effort & Inspection: normal respiratory effort Auscultation: clear to auscultation bilaterally Cardio: Rate: regular rate Rhythm: regular rhythm GI: GI Palp: Yes Soft to palpation Auscultation: normal bowel sounds : General: Yes bladder normal to palpation Urinary Catheter: Urinary Catheter: patent and draining Back/Spine/Pelvis: Back: no CVA tenderness Skin: General skin exam: normal color Rashes: no rashes Wounds: no wounds Neuro: General: patient oriented x3, moves all extremities, no meningeal signs and no focal motor deficits Cranial nerves: Yes Nystagmus not present S peech: normal speech Gait exam (Neuro): Normal gait present Extrem: General: normal to inspection, no clubbing, cyanosis or edema and no pedal edema Psych: Attitude: cooperative Course Course Emergency Course: labs reviewed EKG reviewed within normal limits mental health evaluated patient and patient is deemed to need psychiatric help for suicidal and homicidal ideation as well as schizoaffective disorder with hallucinations. Patient is accepted at [facility]. Vital Signs Vital signs: Vital Signs Temperature 35.8 C L 02/05/25 09:10 Pulse Rate 99 02/05/25 09:10 Respiratory Rate 18 02/05/25 09:10 Blood Pressure 143/83 H 02/05/25 09:10 Pulse Oximetry 97 02/05/25 09:10 Oxygen Delivery Room Air 02/05/25 09:10 Temperature 36.4 C L 02/05/25 13:30 Pulse Rate 74 02/05/25 13:30 Respiratory Rate 18 02/05/25 13:30 Blood Pressure 127/71 02/05/25 13:30 Pulse Oximetry 97 02/05/25 13:30 Oxygen Delivery Room Air 02/05/25 13:30 MDM - Psych Lab Data 02/05/25 09:53 02/05/25 09:53 Labs: Lab Results 02/05/25 02/05/25 02/05/25 Range/Units 09:30 09:53 09:56 WBC 6.0 (4.8-10.8) K/mm3 RBC 3.98 L (4.20-5.40) M/mm3 Hgb 11.0 L (12.0-15.0) g/dL Hct 34.3 L (35.0-49.0) % MCV 86.2 (78.0-102.0) fL MCH 27.6 (27.0-31.0) pg MCHC 32.1 (32-36) g/dL RDW 18.1 H (11.6-14.4) % Plt Count 320 (150-420) K/mm3 MPV 9.9 (9.2-11.8) fl Immature Gran % (Auto) 0.2 H (0.0-0.0) % Neut % (Auto) 52.9 (50.0-70.0) % Lymph % (Auto) 32.7 (18.0-42.0) % Gila % (Auto) 12.2 H (2.0-11.0) % Eos % (Auto) 1.3 (1.0-6.0) % Baso % (Auto) 0.7 (0.0-1.0) % Lymph # (Auto) 1.96 (1.10-4.50) K/mm3 Gila # (Auto) 0.73 (0.10-0.90) K/mm3 Eos # (Auto) 0.08 (0.02-0.50) K/mm3 Baso # (Auto) 0.04 (0.00-0.10) K/mm3 Abs Immat Gran (auto) 0.01 H (0.00-0.00) K/mm3 Absolute Neuts (auto) 3.17 (1.70-7.20) K/mm3 Absolute Nucleated RBC 0.00 (0.00-0.00) K/mm3 Nucleated RBC % 0.0 (0-0.0) % Sodium 136 L (137-145) mmol/L Potassium 3.5 (3.4-5.0) mmol/L Chloride 112 H (98-107) mmol/L Carbon Dioxide 21 L (22-30) mmol/L Anion Gap 3 L (4-12) mmol/L BUN 11 (7-17) mg/dL Creatinine 0.73 (0.7-1.0) mg/dL Estim Creat Clear Calc 94 ml/min Estimated GFR > 60 (59 - ) Glucose 79 (65-110) mg/dL Calculated Osmolality 280 L (285-295) mOsm/kg Calcium 7.7 L (8.4-10.2) mg/dL Total Bilirubin 0.3 (0.2-1.3) mg/dL AST 24 (14-36) U/L ALT 15 (6-35) U/L Alkaline Phosphatase 85 (38-126) U/L Total Protein 5.7 L (6.3-8.2) g/dL Albumin 3.2 L (3.5-5.1) g/dL TSH 1.650 (0.465-4.680) uIU/mL Urine Color Light yellow (Yellow) Urine Appearance Clear (Clear) Urine pH 6.0 (5.0-8.0) Ur Specific [place] <= 1.005 L (1.010-1.020) Urine Protein Negative (Negative) Urine Glucose (UA) Negative (Negative) Urine Ketones Negative (Negative) Ur Blood (Man) Negative (Negative) Urine Nitrate Negative (Negative) Urine Bilirubin Negative (Negative) Urine Urobilinogen 0.2 (0.2-1.0) mg/dL Leukocyte Esterase Rfl Negative (Negative) ALBERTINA/UL Salicylates < 1.0 L (2-20) mg/dL Urine Opiates Screen Negative (Negative) Urine Methadone Screen Negative (Negative) Acetaminophen < 10 L (10-30) ug/mL Ur Barbiturates Screen Negative (Negative) Ur Phencyclidine Scrn Negative (Negative) Ur Amphetamine Screen Negative (Negative) U Benzodiazepines Scrn Negative (Negative) Urine Cocaine Screen Negative (Negative) U Cannabinoids Screen Negative (Negative) Ethyl Alcohol 14 (<10) mg/dL SARS-CoV-2 RNA (RT-PCR) Negative (Negative) Critical Care Time Critical Care Time Critical Care Time: No Discharge Plan Discharge Clinical Impression: Suicidal ideation Patient Disposition: Psychiatric Hosp Condition: Stable Patient Language: Indonesian Prescriptions: No Action duloxetine 60 mg capsule,delayed release(DR/EC) 120 mg PO DAILY Rx Instructions: TAKE AT 0800 aspirin 81 mg tablet,chewable 81 mg PO DAILY lacosamide 200 mg tablet 200 mg PO BID Magnesium (oxide/AA chelate) 300 mg Capsule 400 cap PO DAILY Eliquis 5 mg tablet 5 mg PO BID Qty: 180 2RF Rx Instructions: Samples given to patient 10/06/24- Erma Redmond, RMA 5 mg #14 tabs- x2 boxes Lot # [id number] EXP- 07/2025 Lot# [id number] Exp- 10/2025 trazodone 50 mg tablet See Rx Instructions .ROUTE .COMPLEX Qty: 60 2RF Dose Instruction: TAKE TWO TABLETS BY MOUTH BEDTIME Rx Instructions: TAKE TWO TABLETS BY MOUTH BEDTIME hydroxyzine HCl 25 mg tablet 25 mg PO TID PRN (Reason: anxiety) Qty: 90 2RF levothyroxine 175 mcg tablet 175 mcg PO DAILY Qty: 90 2RF propafenone 150 mg tablet See Rx Instructions .ROUTE .COMPLEX Qty: 180 2RF Dose Instruction: TAKE ONE TABLET BY MOUTH TW TWICE A DAY Rx Instructions: TAKE ONE TABLET BY MOUTH TW TWICE A DAY atorvastatin 40 mg tablet See Rx Instructions .ROUTE .COMPLEX Qty: 60 0RF Dose Instruction: TAKE 1 TABLET BY MOUTH EVERY DAY Rx Instructions: TAKE 1 TABLET BY MOUTH EVERY DAY pantoprazole 40 mg tablet,delayed release (DR/EC) See Rx Instructions .ROUTE .COMPLEX Qty: 90 0RF Dose Instruction: TAKE 1 TABLET BY MOUTH EVERY DAY Rx Instructions: TAKE 1 TABLET BY MOUTH EVERY DAY gabapentin 800 mg tablet See Rx Instructions .ROUTE .COMPLEX Qty: 270 0RF Dose Instruction: TAKE 1 TABLET BY MOUTH 3 TIMES A DAY Rx Instructions: TAKE 1 TABLET BY MOUTH 3 TIMES A DAY nifedipine 90 mg tablet extended release See Rx Instructions .ROUTE .COMPLEX Qty: 30 3RF Dose Instruction: TAKE 1 TABLET BY MOUTH EVERY DAY Rx Instructions: TAKE 1 TABLET BY MOUTH EVERY DAY Follow-up/Referrals: Ronaldo Weston DO [Primary Care Provider] - Time of Disposition: 14:57
--- OUTSIDE RECORDS SUMMARY | 2025-02-05 09:37 | XMS_ITS | Referral Summary ---
Author Organization [facility] Address [address] [place] [address] Care Team Providers Care Plain Goods Hemmer Name Role Phone Akshat Magana MD Primary Care Provider [phone] Encounters Date Type Department Care Team Description 11/14/2024 Telephone [facility] Primary Care at [address] [place] [address] Gilmar Miller MD F/u on cancellation request 11/13/2024 Telephone [facility] Primary Care at [address] [place] [address] Gilmar Miller MD Cancellation Request [...] (11/15/2020): Added automatically from request for surgery [id number] Encounter for screening colonoscopy 11/15/2020 Overview (11/15/2020): Added automatically from request for surgery [id number] Right upper quadrant abdominal pain 06/22/2015 Cardiac [...] on file 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 Room: [facility] 2 Note Status: Finalized [...] scope was passed under direct vision. TheColonoscope [id number] was introduced through the anus and advanced [...] malignant neoplasm of colon CPT copyright 2019 [employer]. All rights reserved. The codes documented in this report are preliminary and upon waitress reviewmay be revised to meet current compliance requirements. Recognized by the [employer] for promoting quality in endoscopy Josafat Kumar MD ENDOSCOPY PROCEDURES Final Re sult * Screening Mammogram W Juan Carlos (03/16/2014 1:07 PM CDT) Anatomical Region Laterality Modality Breast N/A Mammography 03/16/2014 1:07 PM CDT Narrative 03/18/2014 10:18 AM CDT LENORA VALLE M.D. FINAL REPORT ACC# Date Time Exam [id number] Mar 16, 2014 13:07:00 [facility] [id number] Bilateral screen w juan carlos Technologist(s): Blanche Nazario; ; EXAMINATION: Mammogram Technique: Bilateral Bilateral Full-Field Digital Screening Mammogram and Digital Breast Tomosynthesis were performed. Views obtained: bilateral craniocaudal and bilateral mediolateral oblique. Computer Aided Detection of the 2D images was performed with BeliefNet 1.3 version 9.3. Mammogram Findings: The present examination has been compared to a prior imaging study performed at [facility] on 03/04/2012. There are scattered fibroglandular densities. [...] M.D. FINAL REPORT ACC# Date Time Exam [id number] Mar 16, 2014 13:07:00 [facility] [id number] Bilateral screen w juanc arlos Technologist(s): Blanche Nazario; ; EXAMINATION: Mammogram Technique: Bilateral Bilateral Full-Field Digital Screening Mammogram and Digital Breast Tomosynthesis were performed. Views obtained: bilateral craniocaudal and bilateral mediolateral oblique. Computer AidedDetection of the 2D images was performed with BeliefNet 1.3 version 9.3. Mammogram Findings: The present examination has been compared to a prior imaging study performed at [facility] on 03/04/2012. There are scattered fibroglandular densities. [...] Recently Relevant to Health Maintenance Insurance MEDICARE [facility] CHOICE PLUS [facility] HMO/PPO Address: [address] [address] [place] [address] [facility] OPEN ACCESS Advance Directives For more information, please contact: [phone] * Full Code (Latest Code Status on File) Date Activated Date Inactivated Comments 06/14/2023 1:07 PM 06/18/2023 3:43 PM * Full Code Date Activated Date Inactivated Comments 11/05/2021 1:49 PM 11/10/2021 12:54 PM * Full Code Date Activated Date Inactivated Comments 08/05/2021 7:39 AM 08/05/2021 1:53 PM * Full Code Date Activated Date Inactivated Comments 12/24/2020 7:43 AM 12/24/2020 3:06 PM Care Teams Plain Goods Hemmer Relationship Specialty Start Date End Date Akshat Magana MD [address] [place] [id number] PCP - General Family Medicine 06/12/23
--- OUTSIDE RECORDS SUMMARY | 2025-02-05 09:37 | XMS_ITS | Encounter Summary ---
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
--- OUTSIDE RECORDS SUMMARY | 2025-02-05 09:38 | XMS_ITS | Clinical Summary ---
Author Organization [facility] Address [address] [place] [address] Care Team Providers Care Hedge Fund Manager Name Role Phone Cuate St MD Primary Care Provider Source Comments [facility],non-owned Affiliates and Associated Physician Practices is amultiple site organization consisting of ambulatory clinics and hospital sitesin [place], [place] and [place]. This disclosure is being madepursuant to the Care Everywhere program and may not contain all information available regarding this patient. Last updated 18.[facility] Allergies Active Allergy Reactions Criticality Noted Date Comments Bupropion Unknown,Psychiatric, Seizures High 08/25/2022 delirium delirium Carbamazepine Other,Psychiatric Medium 08/25/2022 Described as delirrium delirium delirium Ciprofloxacin Rash Medium 07/27/2022 Wenona Zhang (Diagnostic) Other 09/17/2023 Described as allergy [...] and heating? 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 Temperature 37.4 C (99.3 F) 10/23/2023 12:00 PM HOT POND OPERATOR Respiratory Rate 18 10/23/2023 5:05 PM HOT POND OPERATOR Oxygen Saturation 98% 10/23/2023 5:05 PM HOT POND OPERATOR Inhaled Oxygen Concentration 33% 10/23/2023 5 :05 PM HOT POND OPERATOR Weight 107 kg (235 lb 14.3 oz) 10/18/2023 4:00 A M HOT POND OPERATOR Height 172.7 cm (5' 8) 10/10/2023 7:45 PM HOT POND OPERATOR Body Mass Index 35.87 10/10/2023 7:45 PM HOT POND OPERATOR Plan of Treatment Health Maintenance Due Date Last Done Comments COLOGUARD (AGES 45-75) - COL ON CA SCREENING 1970 CT COLONOGRAPHY - COLON CA SCREENING 1970 FIT - COLON CA SCREENING 1970 FLEX SIG - COLON CA SCREENING 1970 PAP SMEAR 1970 DTAP/TDAP/TD VACCINES (1 - Tdap) 1987 HEPATITIS B VACCINE (1 of 3 - 19+ 3-dose series) 1987 PNEUMOCOCCAL VACCINE 50+ (1 of 2 - PCV) 1987 MAMMOGRAM 03/16/2016 03/16/2014 ZOSTER VACCINE (1 of 2) 2018 COVID-19 VACCINE (1 - 2023-2 5 season) 2024 MEDICARE AWV CALENDAR YEAR 2024 INFLUENZA VACCINE (Season Ended) 2025 06/18/2023, 11/10/2021 COLON MONITORING 12/24/2030 12/24/2020 COLONOSCOPY - COLON CA SCREENING 12/24/2030 12/24/2020 [...] 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 Source: [facility]. Sputum - 09/26/22, 10/07/23 07/13/2023 MRSA [...] 5:47 AM 11/24/2020 11:07 AM Care Teams Hedge Fund Manager Relationship Specialty Start Date End Date Cuate [address] MD [address] [place] [address] PCP - General Internal Medicine 08/20/20
--- OUTSIDE RECORDS SUMMARY | 2025-02-05 09:38 | XMS_ITS | Clinical Summary ---
Author Organization [facility] Address [address] [place] [address] Phone Care Team Providers Care Photovoltaic Technician Name Role Phone Unavailable Primary Care Provider [...] Insurance MEDICARE C BCBS PPO MICHAEL LOGAN [id number]
--- OUTSIDE RECORDS SUMMARY | 2025-02-05 09:38 | XMS_ITS | Clinical Summary ---
Author Organization [facility] Address [address] [place] [address] Care Team Providers Care Vein Pumper Name Role Phone Akshat Magana MD Primary Care Provider [phone]- [phone] Allergies No known active allergies Medications levothyroxine [...] (11/15/2020): Added automatically from request for surgery [id number] Encounter for screening colonoscopy 11/15/2020 Overview (11/15/2020): Added automatically from request for surgery [id number] Right upper quadrant abdominal pain 06/22/2015 Cardiac disease 03/16/2014 Rectal mass 03/16/2014 Screening for malignant neoplasm of cervix 03/16 Dysuria 03/16/2014 Lumbago 06/17/2012 Polyp of cervix 03/04/2012 Dysfunctional uterine bleeding 03/04/2012 Hypothyroidism Bipolar disorder Encounters Date Type Department Care Team Description 11/14/2024 Telephone [facility] at [address] [place] [address] Gilmar Miller MD F/u on cancellation request 11/13/2024 Telephone [facility] at [address] [place] [address] Gilmar Miller MD Cancellation Request from Last 3 Months Immunizations Immunization Administration Dates Next Due Influenza, Quadrivalent, Spl it, Preservative Free, Intramuscular 06/18/2023,11/10/2021 Surgical History Surgery Date Site/Laterality Comments STOMACH SURGERY Gastric Surgery - (Added by TW Conv) [place] DELIVERY ONLY Section - X3 1988/1989/2004 (Added by TW Conv) ECTOPIC SURGERY Laparoscopy With Excision Of Ectopic - (Added by TW Conv) [place] CHOLECYSTECTOMY Cholecystectomy - (Added by TW Conv) [place] LIG/TRNSXJ FLP TUBE ABDL/ VAG APPR UNI/BI Tubal Ligation - (Added by TW Conv) [place] HYSTEROSCOPY ENDOMETRIAL ABLATION Hysteroscopy With Endometrial Ablation [...] on file 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 Room: [facility] ENDOSCOPY ROOM 2 Note Status: Finalized Patient [...] scope was passed under direct vision. TheColonoscope [id number] was introduced through the anus and advanced [...] malignant neoplasm of colon CPT copyright 2019 [employer]. All rights reserved. The codes documented in this report are preliminary and upon outpatient coder reviewmay be revised to meet current compliance requirements. Recognized by the [place] [employer] for promoting quality in endoscopy Josafat Kumar MD ENDOSCOPY PROCEDURES Final Re sult * Screening Mammogram W Juan Carlos (03/16/2014 1:07 PM CDT) Anatomical Region Laterality Modality Breast N/A Mammography 03/16/2014 1:07 PM CDT Narrative 03/18/2014 10:18 AM CDT LENORA VALLE M.D. FINAL REPORT ACC# Date Time Exam [id number] Mar 16, 2014 13:07:00 [facility] [id number] Bilateral screen w juan carlos Technologist(s): Blanche Nazario; ; EXAMINATION: Mammogram Technique: Bilateral Bilateral Full-Field Digital Screening Mammogram and Digital Breast Tomosynthesis were performed. Views obtained: bilateral craniocaudal and bilateral mediolateral oblique. Computer Aided Detection of the 2D images was performed with EO2 Concepts.3 version 9.3. Mammogram Findings: The present examination has been compared to a prior imaging study performed at [facility] on 03/04/2012. There are scattered fibroglandular [...] M.D. FINAL REPORT ACC# Date Time Exam [id number] Mar 16, 2014 13:07:00 [facility] [id number] Bilateral screen w juan carlos Technologist(s): Blanche Nazario; ; EXAMINATION: Mammogram Technique: Bilateral Bilateral Full-Field Digital Screening Mammogram and Digital Breast Tomosynthesis were performed. Views obtained: bilateral craniocaudal and bilateral mediolateral oblique. Computer AidedDetection of the 2D images was performed with Legend Silicon 1.3 version 9.3. Mammogram Findings: The present examination has been compared to a prior imaging study performed at [facility] on 03/04/2012. There are scattered fibroglandular [...] Recently Relevant to Health Maintenance Insurance MEDICARE [facility]ICE [facility] H[facility]/PPO Address: [address] [address] [place] [address] [employer] OPEN ACCESS Advance Directives For more information, please contact: [phone] * Full Code (Latest Code Status on File) Date Activated Date Inactivated Comments 06/14/2023 1:07 PM 06/18/2023 3:43 PM * Full Code Date Activated Date Inactivated Comments 11/05/2021 1:49 PM 11/10/2021 12:54 PM * Full Code Date Activated Date Inactivated Comments 08/05/2021 7:39 AM 08/05/2021 1:53 PM * Full Code Date Activated Date Inactivated Comments 12/24/2020 7:43 AM 12/24/2020 3:06 PM Care Teams Vein Pumper Relationship Specialty Start Date End Date Akshat Magana MD [address] [place] [address] PCP - General Family Medicine 06/12/23
[2025-02-05 09:59] LABS: Basophils Absolute Auto 0.04 K/mm3 (0.00-0.10); Basophils Percent Auto 0.7 % (0.0-1.0); Eosinophils Absolute Auto 0.08 K/mm3 (0.02-0.50); Eosinophils Percent Auto 1.3 % (1.0-6.0); Hematocrit 34.3 % (35.0-49.0); Immature Granulocyte Absolute 0.01 K/mm3 (0.00-0.00); Immature Granulocyte Percent A 0.2 % (0.0-0.0); Lymphocytes Absolute Auto 1.96 K/mm3 (1.10-4.50); Lymphocytes Percent Auto 32.7 % (18.0-42.0); Mean Corpuscular HGB Conc 32.1 g/dL (32-36); Mean Corpuscular Hemoglobin 27.6 pg (27.0-31.0); Mean Corpuscular Volume 86.2 fL (78.0-102.0); Mean Platelet Volume 9.9 fl (9.2-11.8); Monocytes Absolute Auto 0.73 K/mm3 (0.10-0.90); Monocytes Percent Auto 12.2 % (2.0-11.0); Neutrophils Absolute Auto 3.17 K/mm3 (1.70-7.20); Neutrophils Percent Auto 52.9 % (50.0-70.0); Platelet Count Result 320 K/mm3 (150-420); Red Blood Count 3.98 M/mm3 (4.20-5.40); Red Cell Distribution Width 18.1 % (11.6-14.4)
[2025-02-05 10:14] LABS: Acetaminophen < 10 ug/mL (10-30); Ethanol 14 mg/dL (<10); Salicylate < 1.0 mg/dL (2-20)
[2025-02-05] MEDS: NICOTINE (*PBKC) 21 MG PATCH 1 PATCH TRANSDERM (10:28)
--- OUTSIDE RECORDS SUMMARY | 2025-02-05 10:28 | XMS_ITS | Clinical Summary ---
Author Organization [facility] Address [address] [facility] [place] [address] Care Team Providers Care Cap Lining Machine Operator Name Role Phone Cuate St MD Primary Care Provider [phone] Source Comments [facility],non-owned Affiliates and Associated Physician Practices is amultiple site organization consisting of ambulatory clinics and hospital sitesin [place], [place], [place] and [place]. This disclosure is being madepursuant to the Care Everywhere program and may not contain all information available regarding this patient. Last updated 18.[facility] Allergies Active Allergy Reactions Criticality Noted Date Comments Bupropion Unknown,Psychiatric, Seizures High 08/25/2022 delirium delirium Carbamazepine Other,Psychiatric Medium 08/25/2022 Described as delirrium delirium delirium Ciprofloxacin Rash Medium 07/27/2022 [place] Zhang (Diagnostic) Other 09/17/2023 Described as allergy [...] Patient unable to answer 10/11/2023 [facility] [place] [facility] - Occupational Stress [...] place to sleep or slept in a long term (including now)? Patient unable to answer 10/11/2023 Comments No Sex and Gender Information Value Date Recorded Sex Assigned at Not on file Legal Sex Female 1:11 AM CDT Gender Identity Not on file Sexual Orientation Not on file Last Filed Vital Signs Vital Sign Reading Time Taken Comments Blood Pressure 140/75 10/23/2023 5:00 PM [facility] Pulse 85 10/23/2023 5:00 PM [facility] Temperature 37.4 C (99.3 F) 10/23/2023 12:00 PM [facility] Respiratory Rate 18 10/23/2023 5:05 PM [facility] Oxygen Saturation 98% 10/23/2023 5:05 PM [facility] Inhaled Oxygen Concentration 33% 10/23/2023 5 :05 PM [facility] Weight 107 kg (235 lb 14.3 oz) 10/18/2023 4:00 A M [facility] Height 172.7 cm (5' 8) 10/10/2023 7:45 PM [facility] Body Mass Index 35.87 10/10/2023 7:45 PM [facility] Plan of Treatment Health Maintenance Due Date [...] 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 Source: [facility]. Sputum - 09/26/22, 10/07/23 07/13/2023 MRSA 10/07/2023 [...] 5:47 AM 11/24/2020 11:07 AM Care Teams Cap Lining Machine Operator Relationship Specialty Start Date End Date Cuate St MD [address] [place] [address] PCP - General Internal Medicine 08/20/20
--- OUTSIDE RECORDS SUMMARY | 2025-02-05 10:28 | XMS_ITS | Referral Summary ---
Author Organization [facility] Address [address] [place] [address] Care Team Providers Care Employee Representative Name Role Phone Akshat Magana MD Primary Care Provider [phone] Encounters Date Type Department Care Team Description 11/14/2024 Telephone [facility] at [address] [place] [address] Gilmar Miller MD F/u on cancellation request 11/13/2024 Telephone [facility] at [address] [place] [address] Gilmar Miller MD Cancellation Request [...] (11/15/2020): Added automatically from request for surgery [id number] Encounter for screening colonoscopy 11/15/2020 Overview (11/15/2020): Added automatically from request for surgery [id number] Right upper quadrant abdominal pain 06/22/2015 Cardiac [...] on file 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 Room: [facility] ENDOSCOPY ROOM 2 Note Status: Finalized Patient [...] scope was passed under direct vision. TheColonoscope [id number] was introduced through the anus and advanced [...] malignant neoplasm of colon CPT copyright 2019 [employer]. All rights reserved. The codes documented in this report are preliminary and upon veneer stapler reviewmay be revised to meet current compliance requirements. Recognized by the [employer] for promoting quality in endoscopy Josafat Kumar MD ENDOSCOPY PROCEDURES Final Re sult * Screening Mammogram W Juan Carlos (03/16/2014 1:07 PM CDT) Anatomical Region Laterality Modality Breast N/A Mammography 03/16/2014 1:07 PM CDT Narrative 03/18/2014 10:18 AM CDT LENORA VALLE M.D. FINAL REPORT ACC# Date Time Exam [id number] Mar 16, 2014 13:07:00 [facility] [id number] Bilateral screen w juan carlos Technologist(s): Blanche Nazario; ; EXAMINATION: Mammogram Technique: Bilateral Bilateral Full-Field Digital Screening Mammogram and Digital Breast Tomosynthesis were performed. Views obtained: bilateral craniocaudal and bilateral mediolateral oblique. Computer Aided Detection of the 2D images was performed with [employer] 1.3 version 9.3. Mammogram Findings: The present examination has been compared to a prior imaging study performed at [facility] on 03/04/2012. There are scattered fibroglandular [...] M.D. FINAL REPORT ACC# Date Time Exam [id number] Mar 16, 2014 13:07:00 [facility] [id number] Bilateral screen w juan carlos Technologist(s): Blanche Nazario; ; EXAMINATION: Mammogram Technique: Bilateral Bilateral Full-Field Digital Screening Mammogram and Digital Breast Tomosynthesis were performed. Views obtained: bilateral craniocaudal and bilateral mediolateral oblique. Computer AidedDetection of the 2D images was performed with [employer] 1.3 version 9.3. Mammogram Findings: The present examination has been compared to a prior imaging study performed at [facility] on 03/04/2012. There are scattered fibroglandular [...] Recently Relevant to Health Maintenance Insurance MEDICARE [facility] CHOICE PLUS [facility] HMO/PPO Address: [address] [address] [place] [address] [facility] OPEN ACCESS Advance Directives For more information, please contact: [phone] * Full Code (Latest Code Status on File) Date Activated Date Inactivated Comments 06/14/2023 1:07 PM 06/18/2023 3:43 PM * Full Code Date Activated Date Inactivated Comments 11/05/2021 1:49 PM 11/10/2021 12:54 PM * Full Code Date Activated Date Inactivated Comments 08/05/2021 7:39 AM 08/05/2021 1:53 PM * Full Code Date Activated Date Inactivated Comments 12/24/2020 7:43 AM 12/24/2020 3:06 PM Care Teams Employee Representative Relationship Specialty Start Date End Date Akshat Magana MD [address] [place] [address] PCP - General Family Medicine 06/12/23
--- OUTSIDE RECORDS SUMMARY | 2025-02-05 10:28 | XMS_ITS | Clinical Summary ---
Author Organization [facility] Address [address] [place] [address] Phone Care Team Providers Care Mail Inserter Name Role Phone Unavailable Primary Care Provider [...] Insurance MEDICARE C BCBS PPO MICHAEL LOGAN [id number]
--- OUTSIDE RECORDS SUMMARY | 2025-02-05 10:28 | XMS_ITS | Encounter Summary ---
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
--- OUTSIDE RECORDS SUMMARY | 2025-02-05 10:28 | XMS_ITS | Clinical Summary ---
Author Organization [facility] Address [address] [place] [address] Care Team Providers Care Senior Naval Parachutist Name Role Phone Akshat Magana MD Primary Care Provider +- [phone] Allergies No known active allergies Medications levothyroxine [...] (11/15/2020): Added automatically from request for surgery [id number] Encounter for screening colonoscopy 11/15/2020 Overview (11/15/2020): Added automatically from request for surgery [id number] Right upper quadrant abdominal pain 06/22/2015 Cardiac disease 03/16/2014 Rectal mass 03/16/2014 Screening for malignant neoplasm of cervix 03/16 Dysuria 03/16/2014 Lumbago 06/17/2012 Polyp of cervix 03/04/2012 Dysfunctional uterine bleeding 03/04/2012 Hypothyroidism Bipolar disorder Encounters Date Type Department Care Team Description 11/14/2024 Telephone [facility] at [address] [place] [address] Gilmar Miller MD F/u on cancellation request 11/13/2024 Telephone [facility] at [address] [place] [address] Gilmar Miller MD Cancellation Request from Last 3 Months Immunizations Immunization Administration Dates Next Due Influenza, Quadrivalent, Spl it, Preservative Free, Intramuscular 06/18/2023,11/10/2021 Surgical History Surgery Date Site/Laterality Comments STOMACH SURGERY Gastric Surgery - (Added by TW Conv) [place] DELIVERY ONLY Section - X3 1988/1989/2004 (Added by TW Conv) ECTOPIC SURGERY Laparoscopy With Excision Of Ectopic - (Added by TW Conv) [place] CHOLECYSTECTOMY Cholecystectomy - (Added by TW Conv) [place] LIG/TRNSXJ FLP TUBE ABDL/ VAG APPR UNI/BI Tubal Ligation - (Added by TW Conv) [place] HYSTEROSCOPY ENDOMETRIAL ABLATION Hysteroscopy With Endometrial Ablation [...] on file 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 Room: [facility] ENDOSCOPY ROOM 2 Note Status: [...] scope was passed under direct vision. TheColonoscope [id number] was introduced through the anus and advanced to the the cecum, identified by appendiceal orifice and ileocecal valve. The colonoscopy was extremely difficult due to aredundant colon. The patient tolerated the procedure well.The quality of the bowel preparation was excellent. Findings: Hemorrhoids were found on perianal exam. The colon (entire examined portion) appeared normal. Electronically signed by Jsoafat Kumar M.D. Josafat Kumar M.D. 12/24/2020 10:19:06 AM Number of Addenda: 0 Note Initiated On: 12/24/2020 7:44 AM Procedure Code(s): --- Professional --- G0121, Colorectal cancer screening; colonoscopy on individual not meeting criteria for high risk Diagnosis Code(s): --- Professional --- K64.9, Unspecified hemorrhoids Z12.11, Encounter for screening for malignant neoplasm of colon CPT copyright 2019 [employer] [employer]. All rights reserved. The codes documented in this report are preliminary and upon information coder reviewmay be revised to meet current compliance requirements. Recognized by the [employer] for promoting quality in endoscopy Josafat Kumar MD ENDOSCOPY PROCEDURES Final Re sult * Screening Mammogram W Juan Carlos (03/16/2014 1:07 PM CDT) Anatomical Region Laterality Modality Breast N/A Mammography 03/16/2014 1:07 PM CDT Narrative 03/18/2014 10:18 AM CDT LENORA VALLE M.D. FINAL REPORT ACC# Date Time Exam [id number] Mar 16, 2014 13:07:00 [facility] [id number] Bilateral screen w juan carlos Technologist(s): Blanche Nazario; ; EXAMINATION: Mammogram Technique: Bilateral Bilateral Full-Field Digital Screening Mammogram and Digital Breast Tomosynthesis were performed. Views obtained: bilateral craniocaudal and bilateral mediolateral oblique. Computer Aided Detection of the 2D images was performed with SuddenValues.3 version 9.3. Mammogram Findings: The present examination has been compared to a prior imaging study performed at [facility] on 03/04/2012. There are scattered fibroglandular [...] M.D. FINAL REPORT ACC# Date Time Exam [id number] Mar 16, 2014 13:07:00 [facility] [id number] Bilateral screen w juan carlos Technologist(s): Blanche Nazario; ; EXAMINATION: Mammogram Technique: Bilateral Bilateral Full-Field Digital Screening Mammogram and Digital Breast Tomosynthesis were performed. Views obtained: bilateral craniocaudal and bilateral mediolateral oblique. Computer AidedDetection of the 2D images was performed with [employer] 1.3 version 9.3. Mammogram Findings: The present examination has been compared to a prior imaging study performed at [facility] on 03/04/2012. There are scattered fibroglandular [...] Recently Relevant to Health Maintenance Insurance MEDICARE [facility] CHOICE PLUS [employer] OPEN ACCESS Advance Directives For more information, please contact: [phone] * Full Code (Latest Code Status on File) Date Activated Date Inactivated Comments 06/14/2023 1:07 PM 06/18/2023 3:43 PM * Full Code Date Activated Date Inactivated Comments 11/05/2021 1:49 PM 11/10/2021 12:54 PM * Full Code Date Activated Date Inactivated Comments 08/05/2021 7:39 AM 08/05/2021 1:53 PM * Full Code Date Activated Date Inactivated Comments 12/24/2020 7:43 AM 12/24/2020 3:06 PM Care Teams Senior Naval Parachutist Relationship Specialty Start Date End Date Akshat Magana MD [address] [place] [phone] PCP - General Family Medicine 06/12/23
[2025-02-05 10:29] LABS: Add Urine Microscopic? NO; Appearance Urine Clear (Clear); Bilirubin Urine Negative (Negative); Blood Urine Negative (Negative); Color Urine Light Yellow (Yellow); Glucose Urine UA Negative (Negative); Ketones Urine Negative (Negative); Leukocyte Esterase Ur Negative LEU/UL (Negative); Nitrate Urine Negative (Negative); Protein Urine Negative (Negative); Specific Grav Ur <= 1.005 (1.010-1.020); Urobilinogen Urine 0.2 mg/dL (0.2-1.0)
[2025-02-05 10:31] LABS: Anion Gap 3 mmol/L (4-12); Blood Urea Nitrogen 11 mg/dL (7-17); Carbon Dioxide 21 mmol/L (22-30); Chloride 112 mmol/L (98-107); Estimated CRCL calculation 94 ml/min; Estimated Glomerular Filt Rate > 60; Potassium 3.5 mmol/L (3.4-5.0); Sodium 136 mmol/L (137-145)
[2025-02-05 10:32] LABS: Albumin Level 3.2 g/dL (3.5-5.1); Alkaline Phosphatase 85 U/L (38-126); Aspartate Amino Transferase 24 U/L (14-36); Bilirubin,Total 0.3 mg/dL (0.2-1.3); Calcium 7.7 mg/dL (8.4-10.2); Glucose 79 mg/dL (65-110); Osmolality Calculated 280 mOsm/kg (285-295); Total Protein 5.7 g/dL (6.3-8.2)
[2025-02-05 10:33] LABS: Alanine Aminotransferase 15 U/L (6-35)
[2025-02-05 10:35] LABS: SARS-CoV-2 RNA PCR Negative (Negative)
[2025-02-05 11:09] LABS: Amphetamine Screen Urine Negative (Negative); Barbiturate Screen Urine Negative (Negative); Benzodiazepines Screen Urine Negative (Negative); Cannabinoid Screen Urine Negative (Negative); Cocaine Screen Urine Negative (Negative); Methadone Screen Urine Negative (Negative); Opiate Screen Urine Negative (Negative); Phencyclidine Screen Urine Negative (Negative)
[2025-02-05 13:30] VITALS: BP 127/71; PULSE 74; RESP 18; TEMP 36.4; O2SAT 97
[2025-02-05 15:00] VITALS: BP 140/81; PULSE 77; RESP 16; O2SAT 100
[2025-02-05 15:17] VITALS: BP 139/80; PULSE 65; RESP 16; TEMP 36.7; O2SAT 97
== END 2025-02-05 15:17 ==
PROVIDERS: Emergency Provider Emergency Medicine; PCP Family Medicine
DX: R45.851 Suicidal ideations (principal); I10 Essential (primary) hypertension; E03.9 Hypothyroidism, unspecified; F17.210 Nicotine dependence, cigarettes, uncomplicated; Z20.822 Contact with and (suspected) exposure to COVID-19
CPT/HCPCS: 36415; 80053; 80143; 80179; 80307; 81003; 82077; 84443; 85025; 87635; 93005; 99285; A9270

== ENCOUNTER 2025-02-26 15:30 | Outpatient (CLI) | payer MEDICARE, SELFPAY ==
--- NOTE | ~2025-02-26 | XR_ITS ---
HISTORY: M79.671 - Pain in right foot COMPARISON: None TECHNIQUE: 3 views of the right foot were performed. FINDINGS: No acute fracture or dislocation is appreciated. Incidental notation is made of os trigonum. The base of the fifth metatarsal is intact. Small calcaneal spur is noted. Forefoot soft tissue swelling is present. IMPRESSION: Soft tissue swelling without acute fracture. Reviewed, dictated and finalized at location A.
--- NOTE | ~2025-02-26 | XR_ITS ---
EXAM/ PROCEDURE: XR foot LT min 3V - 02/26/2025 16:11 CDT HISTORY: 54 years old Female with M79.671 - Pain in right foot COMPARISON: None available TECHNIQUE: Three view(s) FINDINGS/ IMPRESSION: There are no fractures or dislocations.Joint space narrowing, subchondral sclerosis, subchondral cyst formation and osteophyte formation, compatible with mild osteoarthritis. Calcaneal enthesopathy. Reviewed, dictated and finalized at location A.
--- OUTSIDE RECORDS SUMMARY | 2025-02-26 15:34 | XMS_ITS | Encounter Summary ---
Author Organization [facility] Address [facility] [place] [address] Care Team Providers Care Heel Layer Name Role Phone Cuate St MD Primary Care Provider [phone] Pallavi Rahman MD Unavailable Akshat Magana MD Primary Care Provider Josephine Aguilar MD Unavailable [phone] Eric Gauthier MD Unavailable [phone] Josephine Aguilar MD Primary Care Provider [phone] Demetri Edwards MD Unavailable [phone] Ronaldo Weston DO Primary Care Provider [phone] Encounter Details Date Type Department Care Team (Late st Contact Info) Description 09/24/2022 [facility] [place] [facility] [address] [place] [phone] Pallavi Rahman MD [address] [place] [address] Social History Tobacco Use Types [...] place to sleep or slept in a skilled nursing (including now)? No 09/20/2022 Comments Unknown Sex and Gender Information Value Date Recorded Sex Assigned at Female 09/03/2024 11:46 AM STAFF DESIGN ENGINEER Legal Sex Female 2:43 AM CDT Gender Identity Not on file Sexual Orientation Not on file COVID-19 Exposure Response Date Recorded In the last 10 days, have yo u been in contact with someone who was confirmed or suspected to have Coronavirus/COVID-19? No / Unsure 09/04/2022 2:08 AM STAFF DESIGN ENGINEER documented as of this encounter Functional Status * RETIRED Are you deaf or do you have serious difficulty hearing Answer Date of Assessment Author Status No 09/04/2022 2:00 AM STAFF DESIGN ENGINEER Activ e * RETIRED Are you blind or do you have serious difficulty seeing, even when wearing glasses? Answer Date of Assessment Author Status No 09/04/2022 2:00 AM STAFF DESIGN ENGINEER Activ e * Do you have serious difficulty walking or climbing stairs? Answer Date of Assessment Author Status No 09/04/2022 2:00 AM STAFF DESIGN ENGINEER Lluvia Daugherty RN Active * Do you have difficulty dressing or bathing? Answer Date of Assessment Author Status No 09/04/2022 2:00 AM STAFF DESIGN ENGINEER Lluvia Daugherty RN Active * Because of a physical, mental, or emotional condition, do you have difficulty doing errands alone such as visiting a doctor's office or shopping? Answer Date of Assessment Author Status No 09/04/2022 2:00 AM STAFF DESIGN ENGINEER Lluvia Daugherty RN Active documented as of [...] documented as of this encounter Care Teams Heel Layer Relationship Specialty Start Date End Date Cuate St MD [address] [place] [address] PCP - General INTERNAL MEDICINE 05/02/19 12/13/22 Akshat Magana MD [address] [place] [phone] PCP - General FAMILY PRACTICE 12/14/22 07/07/23 Josephine Aguilar MD [address] [place] [phone] PCP - General FAMILY PRACTICE 07/08/23 09/09/24 Ronaldo Weston DO [address] [place], [place] [phone] PCP - General FAMILY PRACTICE 09/10/24 Pallavi Rahman MD [address] [place] [address] Consulting Physician CARDIOVASCULAR DISEASE 08/25/22 Josephine Aguilar MD [address] [place] [phone] Physician FAMILY PRACTICE 03/14/23 Eric Gauthier MD [address] [place] [address] Consulting Physician CLINICAL CARDIAC ELECTROPHYSIOLOGY 06/18/23 Demetri Edwards MD [address] [place] [address] [place] [address] Consulting Physician SURGERY 05/07/24 05/07/25 documented as of this encounter
--- OUTSIDE RECORDS SUMMARY | 2025-02-26 15:34 | XMS_ITS | Encounter Summary ---
Author Organization [facility] Address Formerly [facility] [place] [address] Care Team Providers Care Tube Molder Fiberglass Name Role Phone Cuate St MD Primary Care Provider [phone] Pallavi Rahman MD Unavailable Akshat Magana MD Primary Care Provider Josephine Aguilar MD Unavailable [phone] Eric Gauthier MD Unavailable [phone] Josephine Aguilar MD Primary Care Provider + [phone] Demetri Edwards MD Unavailable [phone] Ronaldo Weston DO Primary Care Provider [phone] Encounter Details Date Type Department Care Team (Late st Contact Info) Description 09/20/2022 eÇift Message Enc [facility] [address] [address] [facility] Provider Response Social History Tobacco Use [...] place to sleep or slept in a fdc (including now)? No 09/20/2022 Comments Unknown Sex and Gender Information Value Date Recorded Sex Assigned at Female 09/03/2024 11:46 AM FLAT FINISHER Legal Sex Female 2:43 AM CDT Gender Identity Not on file Sexual Orientation Not on file COVID-19 Exposure Response Date Recorded In the last 10 days, have yo u been in contact with someone who was confirmed or suspected to have Coronavirus/COVID-19? No / Unsure 09/04/2022 2:08 AM FLAT FINISHER documented as of this encounter Functional Status * RETIRED Are you deaf or do you have serious difficulty hearing Answer Date of Assessment Author Status No 09/04/2022 2:00 AM FLAT FINISHER Activ e * RETIRED Are you blind or do you have serious difficulty seeing, even when wearing glasses? Answer Date of Assessment Author Status No 09/04/2022 2:00 AM FLAT FINISHER Activ e * Do you have serious difficulty walking or climbing stairs? Answer Date of Assessment Author Status No 09/04/2022 2:00 AM FLAT FINISHER Lluvia Daugherty RN Active * Do you have difficulty dressing or bathing? Answer Date of Assessment Author Status No 09/04/2022 2:00 AM FLAT FINISHER Lluvia Daugherty RN Active * Because of [...] documented as of this encounter Care Teams Tube Molder Fiberglass Relationship Specialty Start Date End Date Cuate St MD [address] [place] [address] PCP - General INTERNAL MEDICINE 05/02/19 12/13/22 Akshat Magana MD [address] [place] [phone] PCP - General FAMILY PRACTICE 12/14/22 07/07/23 Josephine Aguilar MD [address] [place] [phone] PCP - General FAMILY PRACTICE 07/08/23 09/09/24 Ronaldo Weston DO [address] [place] [address] PCP - General FAMILY PRACTICE 09/10/24 Pallavi Rahman MD [address] [place] [address] Consulting Physician CARDIOVASCULAR DISEASE 08/25/22 Josephine Aguilar MD [address] [place] [phone] Physician FAMILY PRACTICE 03/14/23 Eric Gauthier MD [address] [place] [address] Consulting Physician CLINICAL CARDIAC ELECTROPHYSIOLOGY 06/18/23 Demetri Edwards MD [address] [place] [address] Consulting Physician SURGERY 05/07/24 05/07/25 documented as of this encounter
--- OUTSIDE RECORDS SUMMARY | 2025-02-26 15:34 | XMS_ITS | Encounter Summary ---
Author Organization [facility] Address [facility] [place] [address] Care Team Providers Care Dovetail Machine Operator Name Role Phone Pallavi Rahman MD Unavailable Josephine Aguilar MD Unavailable [phone] Eric Gauthier MD Unavailable [phone] Josephine Aguilar MD Primary Care Provider + [phone] Demetri Edwards MD Unavailable [phone] Ronaldo Weston DO Primary Care Provider [phone] Encounter Details Date Type Department Care Team (Late st Contact Info) Description 01/29/2024 Community Orders [facility] Danie Rodriguez MD [address] [place] [address] Social History Tobacco Use Types Packs/Day Years Used Date Smoking Tobacco: Every Day Cigarettes 1.5 42 Smokeless Tobacco: Never Alcohol Use Standard Drinks/Week Comments Not Currently 16.7 (1 standard drink = 0.6 oz pure alcohol) hx of alcoholism [facility] Utilities Answer Date Recorded In the past 12 months has th e [employer], gas, oil, or water [employer] threatened to shut off services in your [...] slept in a long-term (including now)? No 07/20/2023 Comments No Sex [...] 5:21 PM Yoseph Ortiz RN Active * [place]lin Suicide Severity Rating Scale (Screener/Recent Self-Report) Question [...] documented as of this encounter Care Teams Dovetail Machine Operator Relationship Specialty Start Date End Date Josephine Aguilar MD [address] [place] [phone] PCP - General FAMILY PRACTICE 07/08/23 09/09/24 Ronaldo Weston DO [address] [place], [place] [phone] PCP - General FAMILY PRACTICE 09/10/24 Pallavi Rahman MD [address] [place] [address] Consulting Physician CARDIOVASCULAR DISEASE 08/25/22 Josephine Aguilar MD [address] [place] [phone] Physician FAMILY PRACTICE 03/14/23 Eric Gauthier MD [address] [place] [address] Consulting Physician CLINICAL CARDIAC ELECTROPHYSIOLOGY 06/18/23 Demetri Edwards MD [address] [place] [address] [place] [address] Consulting Physician SURGERY 05/07/24 05/07/25 documented as of this encounter
--- OUTSIDE RECORDS SUMMARY | 2025-02-26 15:35 | XMS_ITS | Clinical Summary ---
Author Organization [facility] Address [facility] [place] [address] Care Team Providers Care Speeder Worker Name Role Phone Pallavi Rahman MD Unavailable Josephine Aguilar MD Unavailable [phone] Eric Gauthier MD Unavailable [phone] Demetri Edwards MD Unavailable [phone] Ronaldo Weston DO Primary Care Provider [phone] Allergies Active Allergy Reactions Criticality Noted Date Comments Bupropion Seizure,Other (see comment) 08/25/2022 delirium Carbamazepine Other (see comment) 08/25/2022 delirium Ciprofloxacin Rash Medium 07/27/2022 Clarithromycin Unknown 08/15/2018 [place] Zhang (Diagnostic) Unknown 01/28/2016 Tape Other (see [...] left foot, initial encounter 12/29/2022 Cerebellar stroke ([facility]) 08/08/2022 CVA (cerebral vascular accident) ([facility]/ C) 07/31/2022 Acute embolic stroke ([facility]) 2 Acute embolic stroke ([facility]) 2 AMS (altered mental status) 07/27/2022 Family History Medical History Relation Comments Cancer Father Heart Father Heart murmur Mother Hyperlipidemia Mother Relation Status Comments Father Mother Social History Tobacco Use Types Packs/Day Years Used Date Smoking Tobacco: Every Day Cigarettes 1.5 42.5 Started: 2024; Last attempted to quit: 2023 [...] materials from doctor or pharmacy Never 07/25/2024 [facility] Utilities Answer Date Recorded In the past 12 months has e [employer], gas, oil, or water [employer] threatened to shut off services in your [...] place to sleep or slept in a half-way (including now)? No 07/20/2023 Housing Stability Vital Sign Answer Mehul e Recorded In the last 12 months, was t here a time when you were not able to pay the mortgage or rent on time? No 05/14/2024 In the past 12 months, how m any times have you moved where you were living? 0 05/14/2024 At any time in the past 12 m [facility], were you homeless or living in a half-way (including now)? No 05/14/2024 Comments No Sex and Gender Information Value Date Recorded Sex Assigned at Female 09/03/2024 11:46 AM PANTOGRAPH WATCHER Legal Sex Female 2:43 AM CDT Gender Identity Not on file Sexual Orientation Not on file Last Filed Vital Signs Vital Sign Reading Time Taken Comments Blood Pressure 125/67 09/10/2024 9:57 AM PANTOGRAPH WATCHER Pulse 85 09/10/2024 9:57 AM PANTOGRAPH WATCHER Temperature 36.7 C (98 F) 07/18/2024 10:32 AM PANTOGRAPH WATCHER Respiratory Rate 16 09/10/2024 9:57 AM PANTOGRAPH WATCHER Oxygen Saturation 98% 09/10/2024 9:57 AM PANTOGRAPH WATCHER Inhaled Oxygen Concentration - - Weight 99.2 kg (218 lb 9.6 oz) 09/10/2024 9:57 A M PANTOGRAPH WATCHER Height 175.3 cm (5' 9) 09/10/2024 9:57 AM PANTOGRAPH WATCHER Body Mass Index 32.28 09/10/2024 9:57 AM PANTOGRAPH WATCHER Plan of Treatment Health Maintenance Due Date [...] 5 season) 2024 10/29/2020, 10/08/2020 PHQ-2 (Physician Clarita) 08/20/2024 Lung Cancer Screening 09/25/2024 09/25/2023 , [...] in care transitions and discharge planning Lifestyle Kathryn Orellana, RN Safety - able to safely ambulate at home; tripping hazards removed from the home Lifestyle No Madyson Ortega RN Procedures Procedure Name Priority Date/Time Associated Diagnosis Comments CT CHEST+ABD+PEL WO CON STAT 09/16/2023 2:00 AM PANTOGRAPH WATCHER HEPATITIS PANEL,ACUTE Routine 08/10/2022 5:35 PM PANTOGRAPH WATCHER from Last 3 Months or Most Recently Relevant to Health Maintenance Results * CT CHEST+ABD+PEL WO CON (09/16/2023 2:00 AM PANTOGRAPH WATCHER) Anatomical Region Laterality Modality Chest, Abdomen, Pelvis Computed Tomography 09/16/2023 2:05 AM PANTOGRAPH WATCHER Impressions 09/16/2023 2:12 AM PANTOGRAPH WATCHER IMPRESSION: Increased stool throughout the colon and rectum. Small amount of gas within the right femoral vein and a tributary vein, likely iatrogenic. Referred By: Interpreted By: Josafat Bansal MD, 09/16/2023 2:05 AM Narrative 09/16/2023 2:[address] of the chest, abdomen and pelvis [...] By: Josafat Bansal MD, 09/16/2023 2:05 AM Marybeth Garcia MD CT Final Res ult * (ABNORMAL) HEPATITIS PANEL,ACUTE (08/10/2022 5:35 PM PANTOGRAPH WATCHER) HEPATITIS B SURFACE AG NON-REACTIVE NON-REACT MICHELLE 08/11/2022 12:43 AM PANTOGRAPH WATCHER [facility] Comment:HBsAg NOT DETECTED. HEP B CORE IGM NON-REACTIVE NON-REACT MICHELLE 08/11/2022 12:43 AM PANTOGRAPH WATCHER [facility] Comment: IgM ANTI HBc NOT DETECTED. DOES NOT EXCLUDE THE POSSIBILITY OF EXPOSURE TO OR INFECTION WITH HBV. NO RETEST REQUIRED. HIGH DOSES OF BIOTIN MAY INTERFERE WITH THIS TEST RESULT. CORRELATION TO CLINICAL HISTORY AND PRESENTATION RECOMMENDED. HAV IGM NON-REACTIVE NON-REACT MICHELLE 08/11/2022 12:43 AM PANTOGRAPH WATCHER [facility] Comment: IgM ANTI HAV NOT DETECTED. DOES NOT EXCLUDE THE POSSIBILITY OF EXPOSURE TO OR INFECTION WITH HAV. LEVELS OF IgM ANTI HAV MAY BE BELOW THE CUTOFF IN EARLY INFECTION. HEPATITIS C AB EQUIVOCAL RESULT(A) NON-REACT MICHELLE 08/11/2022 12:43 AM PANTOGRAPH WATCHER [facility] Comment: Repeatedly inconclusive result for Hepatitis C Antibody. Repeat testing on a new specimen from the patient or additional testing by PCR for HCV virus is recommended. 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 Advance Directives and Living Will [...] Agents on File Name Relationship Healthcare Agent Relationsga p Communication Sandeep [facility] Care Agent Care Teams Speeder Worker Relationship Specialty Start Date End Date Ronaldo Weston DO [address] [place] [address] PCP - General FAMILY PRACTICE 09/10/24 Pallavi Rahman MD [address] [place] [address] Consulting Physician CARDIOVASCULAR DISEASE 08/25/22 Josephine Aguilar MD [address] [place] [address] Physician FAMILY PRACTICE 03/14/23 Eric Gauthier MD [address] [place] [address] Consulting Physician CLINICAL CARDIAC ELECTROPHYSIOLOGY 06/18/23 Demetri Edwards MD [facility] [facility] [place] [place] [address] Consulting Physician SURGERY 05/07/24 05/07/25
--- OUTSIDE RECORDS SUMMARY | 2025-02-26 15:35 | XMS_ITS | Clinical Summary ---
Author Organization [facility] Address [address] [place] [address] Care Team Providers Care Coach Tour Driver Name Role Phone Akshat Magana MD Primary Care Provider [phone] Allergies No known active allergies Medications levothyroxine [...] (11/15/2020): Added automatically from request for surgery [id number] Encounter for screening colonoscopy 11/15/2020 Overview (11/15/2020): Added automatically from request for surgery [id number] Right upper quadrant abdominal pain 06/22/2015 Cardiac disease 03/16/2014 Rectal mass 03/16/2014 Screening for malignant neoplasm of cervix 03/16 Dysuria 03/16/2014 Lumbago 06/17/2012 Polyp of cervix 03/04/2012 Dysfunctional uterine bleeding 03/04/2012 Hypothyroidism Bipolar disorder Immunizations Immunization Administration Dates Next Due Influenza, Quadrivalent, Spl it, Preservative Free, Intramuscular 06/18/2023,11/10/2021 Surgical History Surgery Date Site/Laterality Comments STOMACH SURGERY Gastric Surgery - (Added by TW Conv) MD DELIVERY ONLY Section - X3 1988/1989/2004 (Added by TW Conv) ECTOPIC SURGERY Laparoscopy With Excision Of Ectopic - (Added by TW Conv) MD CHOLECYSTECTOMY Cholecystectomy - (Added by TW Conv) MD LIG/TRNSXJ FLP TUBE ABDL/ VAG APPR UNI/BI Tubal Ligation - (Added by TW Conv) MD HYSTEROSCOPY ENDOMETRIAL ABLATION Hysteroscopy With Endometrial Ablation [...] on file Legal Sex Female 5:42 PM STEPDOWN NURSE Gender Identity Not on file Sexual Orientation [...] MD - 12/24/2020 7:44 AM CDT [facility]estive [facility] Patient Name: Jolanta Montes Procedure Date: 12/24/2020 7:44 AM Date of : 1970 Admit Type: Outpatient Age: 50 Gender: Female Attending MD: Josafat Kumar M.D. Room: [facility] ENDOSCOPY ROOM 2 Note Status: Finalized Patient Profile: Refer to note in patient chart for documentation of history and physical. Procedure: Colonoscopy Indications: Screening for colorectal malignant neoplasm, Thisis the patient's first colonoscopy Referring MD: Cuate St M.D. Providers: Josafta Kumar M.D. Impression: - Hemorrhoids found on [...] scope was passed under direct vision. TheColonoscope [id number] was introduced through the anus and advanced [...] malignant neoplasm of colon CPT copyright 2019 [employer]. All rights reserved. The codes documented in this report are preliminary and upon household appliance assembler reviewmay be revised to meet current compliance requirements. Recognized by the [employer] for promoting quality in endoscopy us Josafat Kumar MD ENDOSCOPY PROCEDURES Final Re sult * Screening Mammogram W Juan Carlos (03/16/2014 1:07 PM CDT) Anatomical Region Laterality Modality Breast N/A Mammography 03/16/2014 1:07 PM CDT Narrative 03/18/2014 10:18 AM CDT LENORA VALLE M.D. FINAL REPORT ACC# Date Time Exam [id number] Mar 16, 2014 13:07:00 [facility] [id number] Bilateral screen w juan carlos Technologist(s): Blanche Nazario; ; EXAMINATION: Mammogram Technique: Bilateral Bilateral Full-Field Digital Screening Mammogram and Digital Breast Tomosynthesis were performed. Views obtained: bilateral craniocaudal and bilateral mediolateral oblique. Computer Aided Detection of the 2D images was performed with GeoPalz 1.3 version 9.3. Mammogram Findings: The present examination has been compared to a prior imaging study performed at [facility] on 03/04/2012. There are scattered fibroglandular densities. There is no suspicious abnormality in either breast. IMPRESSION: Annual screening mammography is recommended. OVERALL FINAL ASSESSMENT: BI-RADS CATEGORY 1: Negative. Requested By: Darlene Ace M.D. Dictated By: ELNORA VALLE M.D. on Mar 18 2014 10:18A This document has been electronically signed by: LENORA VALLE M.D. on Mar 18 2014 10:17A Procedure Note Provider, MD Melanie - 12/10/2016 LENORA VALLE M.D. FINAL REPORT ACC# Date Time Exam [id number] Mar 16, 2014 13:07:00 [facility] [id number] Bilateral screen w juan carlos Technologist(s): Blanche Nazario; ; EXAMINATION: Mammogram Technique: Bilateral Bilateral Full-Field Digital Screening Mammogram and Digital Breast Tomosynthesis were performed. Views obtained: bilateral craniocaudal and bilateral mediolateral oblique. Computer AidedDetection of the 2D images was performed with GeoPalz 1.3 version 9.3. Mammogram Findings: The present examination has been compared to a prior imaging study performed at [facility] on 03/04/2012. There are scattered fibroglandular [...] to Health Maintenance Insurance MEDICARE [facility] CHOICE PLUS [facility] OPEN ACCESS Advance Directives For more information, please contact: [phone] * Full Code (Latest Code Status on File) Date Activated Date Inactivated Comments 06/14/2023 1:07 PM 06/18/2023 3:43 PM * Full Code Date Activated Date Inactivated Comments 11/05/2021 1:49 PM 11/10/2021 12:54 PM * Full Code Date Activated Date Inactivated Comments 08/05/2021 7:39 AM 08/05/2021 1:53 PM * Full Code Date Activated Date Inactivated Comments 12/24/2020 7:43 AM 12/24/2020 3:06 PM Care Teams Coach Tour Driver Relationship Specialty Start Date End Date Akshat Magana MD [address] [place] [phone] PCP - General Family Medicine 06/12/23
--- OUTSIDE RECORDS SUMMARY | 2025-02-26 15:35 | XMS_ITS | Data Portability ---
Author Organization [facility], [address] Neurology ([place]) Address [address] 4th [place] [address] Care Team Providers Care Supply Analyst Name Role Phone CACHORRO REYNOSO Primary Care Provider Assessment Encounter Date Assessment Date Assessment LastModified by Organization Details LastModified Time 01/22/2024 01/22/2024 IMPRESSION: 1. She has a history of prior strokes. 2. She has a history of what I suspect may have been an episode of PRES (posterior reversible encephalopathy syndrome) and was pretty debilitated when we saw her at [facility]. 3. She has been in rehab for quite some time and slowly getting better. She then ended up in [place] with diagnosis of seizures. 4. I am not entirely sure about what was going on in [place] as far as having continuous seizures for [...] MRI of her brain without contrast at [facility] to compare to her prior MRIs. 5. [...] 03/04/2024 IMPRESSION: 1. She was hospitalized at [facility] with what looks like PRES. She had a very severe debility. 2. She ended up in the hospital in [place] for quite some time and was told [...] 06/02/2024 IMPRESSION: 1. She was hospitalized at [facility] and it sounds like she had PRES. 2. She spent several months in the hospital in [place] and was told she now is in [...] the Keppra and go from there. alpa kbjason Not available 06/02/2024 16:53:24 10/20/2024 10/20/2024 IMPRESSION: 1. The patient presented very ill and I was concerned she had PRES. 2. She ended up down at [facility] and they believed that she was in [...] Lab CBC w/ auto diff 2023 024 [id number] [facility], [address] [place] [address], [id number], 4 15:58:20 CMP, serum or plasma 2023 024 [id number] [facility], [address] [place] [address], [address], 4 15:58:20 valproic acid, total, serum 2023 024 [id number] [facility], [address] [place] [address], [address], 4 15:58:20 ammonia, blood 2023 024 [facility], [address] [place] [address], [id number], 4 15:58:20 Referral None recorded. Procedures None recorded. Surgeries None recorded. Imaging None recorded. Medication Orders lacosamide 200 mg tablet 2024 025 [email or web address] [facility] [address], [address], 5 19:34:33 lacosamide 200 mg tablet 2023 024 SAIRA [facility] [address] [place], [address], 13:46:05 Patient TargetsNo targets recorded. Patient InstructionsNo [...] Address Organization Details Recorded Time Seizure disorder 012894333 Active 2023 Lou Claros [facility] 13:22:48 General health deterioration 146312789 Active 2023 Cecile Walden [facility] 13:49:33 Antiepileptic adverse reaction 872924480 Active 2023 Cecile Walden [facility] 07:28:54 Problem Notes None recorded. Procedures Surgical History Date Name Laterality Status Provider Name and Address Organization Details Recorded Time delivery completed Not Available Health Note 01/16/2024 11:14:04 Colonoscopy with biopsy completed Not Available Health Note 01/16/2024 11:14:04 Removal of gallbladder completed Not Available Health Note 01/16/2024 11:14:04 Imaging Results None recorded. Procedure Notes None recorded. Medical Equipment None Reported. Allergies Allergen ID Allergen Name Allergen Category Reaction Reaction Severity Criticality Documentation Date Start Date Code Code System Note Provider Name and Address Organization Details Recorded Time 0482401 Wellbutri n medicatio n confusion Not available Not available 09/19/20232017 13388 RxNorm React ion: Confu anson; Not Available [facility] 4 04:00:10 222389 cocoa wolf allergeni c extract food,medi cation Not available Not available Not available 09/17/20232017 68972 1 RxNorm Comme nt: Olivier late ; Not Available [facility] 23:06:13 856224 Biaxin medicatio n Not available Not available Not available 09/17/2023201772 9 RxNorm Comme nt: Other John wilson ns: KVNG DAVID 2017 9:58A M [employer]; ; Not Available [facility] 23:06:13 Medications Name Sig Start Date Stop Date [...] Not Available Vitals Date Recorded Body height Body mass index (BMI) Body weight Heart rate Oxygen saturation Oxygen saturation in Arterial blood by Pulse oximetry Systolic And Diastolic Provider Name and Address Organization Details Last Updated DateTime 5 176.53 cm 30.4 kg/m2 26707.8 1 g 102 /min 95 % 95 % 130/82 mm[Hg] Rajani Feliz [facility] 5 16:18:47 Date Recorded Body height Heart rate Oxygen saturation Oxygen saturation in Arterial blood by Pulse oximetry Systolic And Diastolic Provider Name and Address Organization Details Last Updated DateTime 4 176.53 cm 91 /min 96 % 96 % 126/80 mm[Hg] [facility] 4 13:21:07 Date Recorded Body height Body mass index (BMI) Body weight Heart rate Oxygen saturation Oxygen saturation in Arterial blood by Pulse oximetry Systolic And Diastolic Provider Name and Address Organization Details Last Updated DateTime 4 176.53 cm 31.7 kg/m2 87721.4 2 g 100 /min 97 % 97 % 110/82 mm[Hg] [facility] 4 16:55:43 Date Recorded Body height Body mass index (BMI) Body weight Heart rate Oxygen saturation Oxygen saturation in Arterial blood by Pulse oximetry Systolic And Diastolic Provider Name and Address Organization Details Last Updated DateTime 4 176.53 cm 30.7 kg/m2 80450.9 9 g 109 /min 99 % 99 % 158/88 mm[Hg] Savannah Matty [facility] 4 12:33:20 Social History Question Answer Notes LastModified by [employer] Details LastModified Time Tobacco Smoking Status Current Every Day Smoker Rajani Feliz [facility] 10/20/2024 16:19:06 Do You Have An Advance Directive? No [email or web address] Information not available 02/26/2024 What Is Your Level Of Caffeine Consumption? None [email or web address] Information not available 02/26/2024 How Many Times Per Week Do You Exercise? Less Than 1 Time Per Week [email or web address] Information not available 02/26/2024 Do You Have A Medical Power Of Senior Java Software Developer? No [email or web address] Information not available 02/26/2024 What Was The Date Of Your Most Recent Tobacco Screening? 03/04/2024 [email or web address] Information not available 02/26/2024 What Is Your Relationship Status? [email or web address] Information not available 02/26/2024 Sex: Unknown Functional Status Question Answer Note LastModified by [employer] ion Details LastModified Time Do you use any illicit or recreational drugs? No [email or web address] Information not available 02/26/2024 What is your level of alcohol consumption? None [email or web address] Information not available 02/26/2024 Are you currently employed? No [email or web address] Information not available 02/26/2024 What is your occupation? Retired [email or web address] Information not available 02/26/2024 What is your exercise level? None [email or web address] [...] SNOMED-CT Code Diagnosis ICD10 Code Diagnosis Note [id number] [facility] Rodriguez [facility] [address] [place] [address] 01/22/2024 12:48:16 01/22/2024 13:32:44 Seizure disorder 813939192 G40.909 History of cerebrovascular accident 392454256 Z86.73 Long-term current use of anticoagulant 847553006 Z79.01 General he alth deterioration 445460498 R53.81 [id number] Danie Rodriguez [facility] [address] [place] [address] 03/04/2024 16:44:42 03/07/2024 06:25:28 Seizure disorder 913555432 G40.909 Antiepilep tic adverse reaction 440404666 T42.75XA [id number] Danie Rodriguez MD [address] [place]rology ([place]) [address] [place] [address] 06/02/2024 12:17:25 06/02/2024 14:35:54 Seizure disorder 998258893 G40.909 [id number] Danie Rodriguez MD [address] ([place]) [address] [place] [address] 10/20/2024 16:09:35 10/20/2024 16:42:43 Seizure disorder 308428616 G40.909 Health Concerns Section Related Observation LastModified by Organization Detai ls LastModified Time None Recorded Concern Status LastModified by Organization Details LastModified Time None Recorded Advance Directives Directive N: Payers Insurance Date Sequence Insurance Name Policy Number Policy Horvath Covered Member ID Horvath Member ID Guarantor Name 10/10/2024 1 [employer] (MEDICARE REPLACEMENT/AD VANTAGE - PPO) [id number] Jolanta Montes [id number] Jolanta Montes 10/10/2024 2 [place] VANTAGE - PPO) [id number] Jolanta Montes [id number] Jolanta Montes 10/20/2024 1 BLUE CROSS MEDICARE ADVANTAGE [place]MEDICARE REPLACEMENT HMO) [id number] Jolanta Montes [id number] Jolanta Montes 10/20/2024 1 [employer] (MEDICARE REPLACEMENT/AD VANTAGE - PPO) [id number] Jolanta Montes [id number] Jolanta Montes Notes Date Note Type Note [...] was sent from 1 rehab facility and [place] [facility] to another since then. I am not exactly sure what happened, but she ended up down in [place] and was told that she had continuous [...] home. She has not had any further seizures.tunde Rodriguez MD [address] [place] [address], [phone], [facility] 01/23/2024 16:25:35 03/04/2024 text/html Ms. Montes return [...] she tells me.alpa Rodriguez MD [address] [place] [address], [phone], [facility] 03/06/2024 11:32:54 06/02/2024 text/html CHIEF COMPLAINT:Seizure disorder. [...] and bipolar disorder.alpa Rodriguez MD [address] [place] [address], [phone], [facility] 06/03/2024 13:39:17 10/20/2024 text/html CHIEF COMPLAINT:Seizure disorder. HPI:Ms. Montes returns to the clinic today. She is doing great. She got back on the Keppra. She feels much better. She has not had any seizures since August 2023. She brings a form for me to fill out in regards to her ability to drive.gaf Danie Rodriguez MD [address] [place] [address], [phone], [facility] 10/22/2024 09:59:12 OBGyn Episode No OBEpisode recorded.
--- OUTSIDE RECORDS SUMMARY | 2025-02-26 15:35 | XMS_ITS | Clinical Summary ---
Author Organization [facility] Address [address] [facility] [place] [address] Care Team Providers Care Newspaper Stuffer Name Role Phone Cuate St MD Primary Care Provider [phone] Source Comments [facility],non-owned Affiliates and Associated Physician Practices is amultiple site organization consisting of ambulatory clinics and hospital sitesin [place], [place], [place] and [place]. This disclosure is being madepursuant to the Care Everywhere program and may not contain all information available regarding this patient. Last updated 18.[facility] Allergies Active Allergy Reactions Criticality Noted Date Comments Bupropion Unknown,Psychiatric, Seizures High 08/25/2022 delirium delirium Carbamazepine Other,Psychiatric Medium 08/25/2022 Described as delirrium delirium delirium Ciprofloxacin Rash Medium 07/27/2022 Kent Zhang (Diagnostic) Other 09/17/2023 Described as allergy [...] and heating? Patient unable to answer 10/11/2023 [facility] [place] [facility] Occupat ional Health - Occupational Stress [...] Comments Blood Pressure 140/75 10/23/2023 5:00 PM LABORER STORES Pulse 85 10/23/2023 5:00 PM LABORER STORES Temperature 37.4 C (99.3 F) 10/23/2023 12:00 PM LABORER STORES Respiratory Rate 18 10/23/2023 5:05 PM LABORER STORES Oxygen Saturation 98% 10/23/2023 5:05 PM LABORER STORES Inhaled Oxygen Concentration 33% 10/23/2023 5 :05 PM LABORER STORES Weight 107 kg (235 lb 14.3 oz) 10/18/2023 4:00 A M LABORER STORES Height 172.7 cm (5' 8) 10/10/2023 7:45 PM LABORER STORES Body Mass Index 35.87 10/10/2023 7:45 PM LABORER STORES Plan of Treatment Health Maintenance Due Date Last Done Comments COLOGUARD (AGES 45-75) - COL ON CA SCREENING 1970 CT COLONOGRAPHY - COLON CA SCREENING 1970 FIT - COLON CA SCREENING 1970 FLEX SIG - COLON CA SCREENING 1968 DTAP/TDAP/TD VACCINES (1 - Tdap) 1987 HEPATITIS B VACCINE (1 of 3 - 19+ 3-dose series) 1987 PNEUMOCOCCAL VACCINE 50+ (1 of 2 - PCV) 1987 PAP SMEAR 1989 MAMMOGRAM 03/16/2016 03/16/2014 ZOSTER VACCINE (1 of 2) 2018 COVID-19 VACCINE (1 - 2023-2 5 season) 2024 MEDICARE AWV CALENDAR YEAR 2024 INFLUENZA VACCINE (#1) 2025 , 11/10/2021 COLON MONITORING 12/24/2030 12/24/2020 COLONOSCOPY - [...] 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 Source: [facility]. Sputum - 09/26/22, 10/07/23 07/13/2023 MRSA [...] 5:47 AM 11/24/2020 11:07 AM Care Teams Newspaper Stuffer Relationship Specialty Start Date End Date Cuate St MD [address] [place] [address] PCP - General Internal Medicine 08/20/20
--- OUTSIDE RECORDS SUMMARY | 2025-02-26 15:35 | XMS_ITS | Referral Summary ---
Author Organization [facility] Address [address] [place] [address] Care Team Providers Care County Historian Name Role Phone Akshat Magana MD Primary Care Provider [phone] Allergies No known active allergies Medications levothyroxine [...] (11/15/2020): Added automatically from request for surgery [id number] Encounter for screening colonoscopy 11/15/2020 Overview (11/15/2020): Added automatically from request for surgery [id number] Right upper quadrant abdominal pain 06/22/2015 Cardiac [...] on file Legal Sex Female 5:42 PM CHAINER Gender Identity Not on file Sexual Orientation [...] 12/24/2020 7:44 AM CDT SCREENING MAMMOGRAM W EMEKA Routine 03/16/2014 1:07 PM CDT from Last 3 Months or Most Recently Relevant to Health Maintenance Results * COLONOSCOPY (12/24/2020 7:44 AM CDT) Anatomical Region Laterality Modality Other Narrative Procedure Note Josafat Kumar MD - 12/24/2020 7:44 AM CDT [facility] Patient Name: Jolanta Jimenez Procedure Date: 12/24/2020 7:44 AM Date of : 1970 Admit Type: Outpatient Age: 50 Gender: Female Attending MD: Josafat Kumar M.D. Room: [facility] ENDOSCOPY ROOM 2 Note Status: Finalized Patient [...] scope was passed under direct vision. TheColonoscope [id number] was introduced through the anus and advanced [...] malignant neoplasm of colon CPT copyright 2019 [employer]. All rights reserved. The codes documented in this report are preliminary and upon wood mill supervisor reviewmay be revised to meet current compliance requirements. Recognized by the [employer] for promoting quality in endoscopy Josafat Kumar MD ENDOSCOPY PROCEDURES Final Re sult * Screening Mammogram W Emeka (03/16/2014 1:07 PM CDT) Anatomical Region Laterality Modality Breast N/A Mammography 03/16/2014 1:07 PM CDT Narrative 03/18/2014 10:18 AM CDT LENORA VALLE M.D. FINAL REPORT ACC# Date Time Exam [id number] Mar 16, 2014 13:07:00 [facility] [id number] Bilateral screen w emeka Technologist(s): Blanche Nazario; ; EXAMINATION: Mammogram Technique: Bilateral Bilateral Full-Field Digital Screening Mammogram and Digital Breast Tomosynthesis were performed. Views obtained: bilateral craniocaudal and bilateral mediolateral oblique. Computer Aided Detection of the 2D images was performed with eGym.3 version 9.3. Mammogram Findings: The present examination has been compared to a prior imaging study performed at [facility] on 03/04/2012. There are scattered fibroglandular densities. [...] M.D. FINAL REPORT ACC# Date Time Exam [id number] Mar 16, 2014 13:07:00 [facility] [id number] Bilateral screen w emeka Technologist(s): Blanche Nazario; ; EXAMINATION: Mammogram Technique: Bilateral Bilateral Full-Field Digital Screening Mammogram and Digital Breast Tomosynthesis were performed. Views obtained: bilateral craniocaudal and bilateral mediolateral oblique. Computer AidedDetection of the 2D images was performed with eGym.3 version 9.3. Mammogram Findings: The present examination has been compared to a prior imaging study performed at [facility] on 03/04/2012. There are scattered fibroglandular densities. [...] Recently Relevant to Health Maintenance Insurance MEDICARE [facility] CHOICE PLUS [facility] HMO/PPO Address: [address] [address] [place] [address] CIGNA OPEN ACCESS Advance Directives For more information, please contact: [phone] * Full Code (Latest Code Status on File) Date Activated Date Inactivated Comments 06/14/2023 1:07 PM 06/18/2023 3:43 PM * Full Code Date Activated Date Inactivated Comments 11/05/2021 1:49 PM 11/10/2021 12:54 PM * Full Code Date Activated Date Inactivated Comments 08/05/2021 7:39 AM 08/05/2021 1:53 PM * Full Code Date Activated Date Inactivated Comments 12/24/2020 7:43 AM 12/24/2020 3:06 PM Care Teams County Historian Relationship Specialty Start Date End Date Akshat Magana MD [address] [place] [address] PCP - General Family Medicine 06/12/23
--- OUTSIDE RECORDS SUMMARY | 2025-02-26 15:35 | XMS_ITS | Encounter Summary ---
Author Organization [facility] Address Counts include 234 beds at the [facility] [place] [address] Care Team Providers Care Coil Winding Supervisor Name Role Phone Cuate St MD Primary Care Provider [phone] Pallavi Rahman MD Unavailable Akshat Magana MD Primary Care Provider [phone] Josephine Aguilar MD Unavailable [phone] Eric Gauthier MD Unavailable [phone] Josephine Aguilar MD Primary Care Provider + [phone] Demetri Edwards MD Unavailable [phone] Ronaldo Weston DO Primary Care Provider [phone] Encounter Details Date Type Department Care Team (Late st Contact Info) Description 08/02/2022 Hospital Follow-up Call [facility] [address] [place] [address] Poonam Zimmerman RN Social History Tobacco Use Types Packs/Day Years Used Date Smoking Tobacco: Every Day Cigarettes Smokeless Tobacco: Never Alcohol Use Standard Drinks/Week Comments Not Currently 0 (1 standard drink = 0.6 oz pur e alcohol) hx of alcoholism Comments Unknown Sex and Gender Information Value Date Recorded Sex Assigned at Female 09/03/2024 11:46 AM BRASS FINISHER Legal Sex Female 2:43 AM CDT Gender Identity Not on file Sexual Orientation Not on file COVID-19 Exposure Response Date Recorded In the last 10 days, have edilberto u been in contact with someone who was confirmed or suspected to have Coronavirus/COVID-19? No / Unsure 07/29/2022 12:35 AM BRASS FINISHER documented as of this encounter Functional Status * RETIRED Are you deaf or do you have serious difficulty hearing Answer Date of Assessment Author Status No 07/27/2022 3:53 PM BRASS FINISHER Activ e * RETIRED Are you blind or do you have serious difficulty seeing, even when wearing glasses? Answer Date of Assessment Author Status No 07/27/2022 3:53 PM BRASS FINISHER Activ e * Do you have serious difficulty walking or climbing stairs? Answer Date of Assessment Author Status Yes 07/27/2022 3:53 PM BRASS FINISHER Shakira Nicole RN Active * Do you have difficulty dressing or bathing? Answer Date of Assessment Author Status Yes 07/27/2022 3:53 PM BRASS FINISHER Shakira Nicole RN Active * Because of a physical, mental, or emotional condition, do you have difficulty doing errands alone such as visiting a doctor's office or shopping? Answer Date of Assessment Author Status Yes 07/27/2022 3:53 PM BRASS FINISHER Shakira Nicole RN Active documented as of this encounter Mental Status * Because of a physical, mental, or emotional condition, do you have serious difficulty concentrating, remembering, or making decisions? Answer Entry Date Author Status Yes 07/27/2022 3:53 PM BRASS FINISHER Shakira Nicole RN Active documented in this encounter Plan of Treatment Not on file documented as of this encounter Visit Diagnoses Not on filedocumented in this encounter Additional Health Concerns Infection Onset Date Last Indicated Resolved Time COVID-19 Rule Out 09/08/2022 09/08/2022 09/08/2022 7:39 PM BRASS FINISHER MRSA 07/13/2023 09/05/2024 documented as of this encounter Care Teams Coil Winding Supervisor Relationship Specialty Start Date End Date Cuate St MD [address] [place] [address] PCP - General INTERNAL MEDICINE 05/02/19 12/13/22 Akshat Magana MD [address] [place] [phone] PCP - General FAMILY PRACTICE 12/14/22 07/07/23 Josephine Aguilar MD [address] [place] [phone] PCP - General FAMILY PRACTICE 07/08/23 09/09/24 Ronaldo Weston DO [address] [place] [address] PCP - General FAMILY PRACTICE 09/10/24 Pallavi Rahman MD [address] [place] [address] Consulting Physician CARDIOVASCULAR DISEASE 08/25/22 Josephine Aguilar MD [address] [place] [phone] Physician FAMILY PRACTICE 03/14/23 Eric Gauthier MD [address] [place] [address] Consulting Physician CLINICAL CARDIAC ELECTROPHYSIOLOGY 06/18/23 Demetri Edwards MD [address] [place] [address] [place] [address] Consulting Physician SURGERY 05/07/24 05/07/25 documented as of this encounter
--- OUTSIDE RECORDS SUMMARY | 2025-02-26 15:35 | XMS_ITS | Clinical Summary ---
Author Organization [facility] Address [address] [place] [address] Phone Care Team Providers Care Remedial Project Manager Name Role Phone Unavailable Primary Care Provider [...] Insurance MEDICARE C BCBS PPO MICHAEL LOGAN [id number]
--- OUTSIDE RECORDS SUMMARY | 2025-02-26 15:35 | XMS_ITS | Patient Health Record ---
Author Organization [facility] Address [address] [place] [address] Care Team Providers Care Quality Assurance Technician Name Role Phone Hedy Collazo Unavailable [phone] Reason For Referral No Information Medications Medication SIG (Take, Route, Frequency, Duration) Notes Start Date End Date Status LACOSAMIDE 200 MG TABLET *Reorder from [place] for eRx and Interaction Alerts* 05/22/2023 Active hydrOXYzine Pamoate 25 MG Oral 05/22/2023 Active levETIRAcetam 1000 MG Oral 05/22/2023 Active Eliquis 5 MG Oral 05/22/2023 Active Meclizine HCl 25 MG Oral 05/22/2023 Active Pantoprazole Sodium 40 MG Oral 05/22/2023 Active hydrOXYzine HCl 25 MG Oral 05/22/2023 Active Lisinopril 40 MG Oral 05/22/2023 Ac tive traZODone HCl 50 MG Oral 05/22/2023 Active Aspirin Adult Low Strength 81 MG Oral 05/22/2023 Active Gabapentin 300 MG Oral 05/22/2023 A ctive HYDROcodone-Acetamino phen 5-325 MG Oral 05/22/2023 Active DULoxetine HCl 60 MG Oral 05/22/2023 Active QUEtiapine Fumarate 300 MG Oral 05/22/2023 Active Famotidine 40 MG Oral 05/22/2023 Ac tive QUEtiapine Fumarate 50 MG Oral 05/22/2023 Active NIFEdipine ER 90 MG Oral 05/22/2023 Active HYDROcodone-Acetamino phen 10-325 MG Oral 05/22/2023 Active Metoprolol Succinate ER 25 MG Oral 05/22/2023 Active Atorvastatin Calcium 40 MG Oral 05/22/2023 Active Disulfiram 250 mg Oral 05/22/2023 A ctive Carvedilol 25 MG Oral 05/22/2023 Ac tive Levothyroxine Sodium 175 MCG Oral 05/22/2023 Active carBAMazepine ER 200 MG Oral 05/22/2023 Active NIFEdipine ER Osmotic Release 60 MG Oral 05/22/2023 Active Social History Sex Assigned At : Social History Observation Description Sex Assigned At Female Encounters Encounter Location Date Provider Diagnosis [facility] [address] [facility] [address] [place] [address] 03/21/2024 [facility] [place] [id number] [facility] [address] [place] [address] 02/28/2024 Hedy Collazo Plan Of Treatment No Information Insurance Providers Payer Name Payer Address Payer Phone Subscriber Number Group Number Insured Name Patient Relationship to Insured Coverage Start Date Coverage End Date Medicare-I l Medicare [address] [place] [id number] TIMO JIMENEZ Self - patient is the insured
--- OUTSIDE RECORDS SUMMARY | 2025-02-26 15:35 | XMS_ITS | Encounter Summary ---
Author Organization [facility] Healthcare Address [address] [place] [address] Care Team Providers Care Gis Physical Scientist Name Role Phone Cuate St MD Primary Care Provider [phone] Akshat Magana MD Primary Care Provider [phone] Encounter Details Date Type Department Care Team (Late st Contact Info) Description 11/07/2021 Documentation [facility] Warm Hand Off Program [address] [place], [place] [phone] Abel Claros Social History Tobacco Use Types [...] on file Legal Sex Female 5:42 PM EMERGENCY MANAGEMENT SYSTEM DIRECTOR Gender Identity Not on file Sexual Orientation Not on file documented as of this encounter Plan of Treatment Not on file documented as of this encounter Visit Diagnoses Not on filedocumented in this encounter Care Teams Gis Physical Scientist Relationship Specialty Start Date End Date Cuate St MD PCP - General 09/11/06 06/11/23 Akshat Magana MD [address] [place] [address] [phone] PCP - General Family Medicine 06/12/23 documented as of this encounter
== END 2025-02-26 15:31 | disposition home or self-care (01) ==
LOC: CHSIMG 15:33
PROVIDERS: PCP Family Medicine; Visit Provider Family Medicine
DX: M79.672 Pain in left foot (principal); M79.671 Pain in right foot; M77.32 Calcaneal spur, left foot
CPT/HCPCS: 73630

== ENCOUNTER 2025-04-01 15:11 | Outpatient (NON) | payer MEDICARE, SELFPAY ==
--- NOTE | 2025-04-01 | CY_PTH ---
PATIENT: Jolanta Montes I LOC: [facility] U#:[id number] AGE/SX: 54/F ROOM: RE04/01/[address]: Elise Pantoja APRN : 1970 BED: DIS: 04/01/2025 SPEC #: [id number] RECD: 04/01/25 16:52 STATUS: LUCILLE ORDOÑEZ #: [id number] JAME: 04/01/25 00:[address]: Elise Pantoja DEPT: [facility] Cytology RECD BY: Winter Santana MLT, ([facility] Tissues: A - Pap Smear Procedures: Pap Smear
--- OUTSIDE RECORDS SUMMARY | 2025-04-01 15:14 | XMS_ITS | Clinical Summary ---
Author Organization [facility] Address [address] [place] [address] Phone Care Team Providers Care Conduit Mechanic Name Role Phone Unavailable Primary Care Provider [...] Insurance MEDICARE C BCBS PPO MICHAEL LOGAN [id number]
--- OUTSIDE RECORDS SUMMARY | 2025-04-01 15:14 | XMS_ITS | Encounter Summary ---
Author Organization [facility] Healthcare Address [address] [place] [address] Care Team Providers Care Slipman Name Role Phone Cuate St MD Primary Care Provider [phone] Akshat Magana MD Primary Care Provider [phone] Encounter Details Date Type Department Care Team (Late st Contact Info) Description 11/07/2021 Documentation [facility] Warm Hand Off Program [address] [place], [place] [phone] Abel Claros Social History Tobacco Use Types [...] on file Legal Sex Female 5:42 PM MAGNETIZER Gender Identity Not on file Sexual Orientation Not on file documented as of this encounter Plan of Treatment Not on file documented as of this encounter Visit Diagnoses Not on filedocumented in this encounter Care Teams Slipman Relationship Specialty Start Date End Date Cuate St MD PCP - General 09/11/06 06/11/23 Akshat Magana MD [address] [place] [address] [phone] PCP - General Family Medicine 06/12/23 documented as of this encounter
--- OUTSIDE RECORDS SUMMARY | 2025-04-01 15:14 | XMS_ITS | Encounter Summary ---
Author Organization [facility] Address [facility] [place] [address] Care Team Providers Care Document Control Supervisor Name Role Phone Cuate St MD Primary Care Provider [phone] Pallavi Rahman MD Unavailable Akshat Magana MD Primary Care Provider [phone] Josephine Aguilar MD Unavailable [phone] Eric Gauthier MD Unavailable [phone] Josephine Aguilar MD Primary Care Provider + [phone] Demetri Edwards MD Unavailable [phone] Ronaldo Weston DO Primary Care Provider [phone] Encounter Details Date Type Department Care Team (Late st Contact Info) Description 08/02/2022 Hospital Follow-up Call [facility] [address] [place] [address] Poonam Zimmerman RN Social History Tobacco Use Types Packs/Day Years Used Date Smoking Tobacco: Every Day Cigarettes Smokeless Tobacco: Never Alcohol Use Standard Drinks/Week Comments Not Currently 0 (1 standard drink = 0.6 oz pur e alcohol) hx of alcoholism Comments Unknown Sex and Gender Information Value Date Recorded Sex Assigned at Female 09/03/2024 11:46 AM FIXED INTEREST DEALER Legal Sex Female 2:43 AM CDT Gender Identity Not on file Sexual Orientation Not on file COVID-19 Exposure Response Date Recorded In the last 10 days, have edilberto u been in contact with someone who was confirmed or suspected to have Coronavirus/COVID-19? No / Unsure 07/29/2022 12:35 AM FIXED INTEREST DEALER documented as of this encounter Functional Status * RETIRED Are you deaf or do you have serious difficulty hearing Answer Date of Assessment Author Status No 07/27/2022 3:53 PM FIXED INTEREST DEALER Activ e * RETIRED Are you blind or do you have serious difficulty seeing, even when wearing glasses? Answer Date of Assessment Author Status No 07/27/2022 3:53 PM FIXED INTEREST DEALER Activ e * Do you have serious difficulty walking or climbing stairs? Answer Date of Assessment Author Status Yes 07/27/2022 3:53 PM FIXED INTEREST DEALER Shakira Nicole RN Active * Do you have difficulty dressing or bathing? Answer Date of Assessment Author Status Yes 07/27/2022 3:53 PM FIXED INTEREST DEALER Shakira Nicole RN Active * Because of a physical, mental, or emotional condition, do you have difficulty doing errands alone such as visiting a doctor's office or shopping? Answer Date of Assessment Author Status Yes 07/27/2022 3:53 PM FIXED INTEREST DEALER Shakira Nicole RN Active documented as of this encounter Mental Status * Because of a physical, mental, or emotional condition, do you have serious difficulty concentrating, remembering, or making decisions? Answer Entry Date Author Status Yes 07/27/2022 3:53 PM FIXED INTEREST DEALER Shakira Nicole RN Active documented in this encounter Plan of Treatment Not on file documented as of this encounter Visit Diagnoses Not on filedocumented in this encounter Additional Health Concerns Infection Onset Date Last Indicated Resolved Time COVID-19 Rule Out 09/08/2022 09/08/2022 09/08/2022 7:39 PM FIXED INTEREST DEALER MRSA 07/13/2023 09/05/2024 documented as of this encounter Care Teams Document Control Supervisor Relationship Specialty Start Date End Date Cuate St MD [address] [place] [address] PCP - General INTERNAL MEDICINE 05/02/19 12/13/22 Akshat Magana MD [address] [place] [phone] PCP - General FAMILY PRACTICE 12/14/22 07/07/23 Josephine Aguilar MD [address] [place] [phone] PCP - General FAMILY PRACTICE 07/08/23 09/09/24 Ronaldo Weston DO [address] [place] [address] PCP - General FAMILY PRACTICE 09/10/24 Pallavi Rahman MD [address] [place] [address] Consulting Physician CARDIOVASCULAR DISEASE 08/25/22 Josephine Aguilar MD [address] [place] [phone] Physician FAMILY PRACTICE 03/14/23 Eric Gauthier MD [address] [place] [address] Consulting Physician CLINICAL CARDIAC ELECTROPHYSIOLOGY 06/18/23 Demetri Edwards MD [address] [place] [address] [place] [address] Consulting Physician SURGERY 05/07/24 05/07/25 documented as of this encounter
--- OUTSIDE RECORDS SUMMARY | 2025-04-01 15:14 | XMS_ITS | Clinical Summary ---
Author Organization [facility] Address [address] [place] [address] Care Team Providers Care Knife Sharpener Name Role Phone Cuate St MD Primary Care Provider [phone] Source Comments [facility],non-owned Affiliates and Associated Physician Practices is amultiple site organization consisting of ambulatory clinics and hospital sitesin [place], [place] and [place]. This disclosure is being madepursuant to the Care Everywhere program and may not contain all information available regarding this patient. Last updated 18.[facility] Allergies Active Allergy Reactions Criticality Noted Date Comments Bupropion Unknown,Psychiatric, Seizures High 08/25/2022 delirium delirium Carbamazepine Other,Psychiatric Medium 08/25/2022 Described as delirrium delirium delirium Ciprofloxacin Rash Medium 07/27/2022 Whitney Zhang (Diagnostic) Other 09/17/2023 Described as allergy [...] and heating? Patient unable to answer 10/11/2023 [facility] [place] [facility] - Occupational Stress [...] place to sleep or slept in a [place] facility (including now)? Patient unable to answer 10/11/2023 Comments No Sex and Gender Information Value Date Recorded Sex Assigned at Not on file Legal Sex Female 1:11 AM CDT Gender Identity Not on file Sexual Orientation Not on file Last Filed Vital Signs Vital Sign Reading Time Taken Comments Blood Pressure 140/75 10/23/2023 5:00 PM MANAGING PRINCIPAL Pulse 85 10/23/2023 5:00 PM MANAGING PRINCIPAL Temperature 37.4 C (99.3 F) 10/23/2023 12:00 PM MANAGING PRINCIPAL Respiratory Rate 18 10/23/2023 5:05 PM MANAGING PRINCIPAL Oxygen Saturation 98% 10/23/2023 5:05 PM MANAGING PRINCIPAL Inhaled Oxygen Concentration 33% 10/23/2023 5 :05 PM MANAGING PRINCIPAL Weight 107 kg (235 lb 14.3 oz) 10/18/2023 4:00 A M MANAGING PRINCIPAL Height 172.7 cm (5' 8) 10/10/2023 7:45 PM MANAGING PRINCIPAL Body Mass Index 35.87 10/10/2023 7:45 PM MANAGING PRINCIPAL Plan of Treatment Health Maintenance Due Date [...] 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 Source: [facility]. Sputum - 09/26/22, 10/07/23 07/13/2023 MRSA [...] 5:47 AM 11/24/2020 11:07 AM Care Teams Knife Sharpener Relationship Specialty Start Date End Date Cuate St MD [address] [place] [address] PCP - General Internal Medicine 08/20/20
--- OUTSIDE RECORDS SUMMARY | 2025-04-01 15:14 | XMS_ITS | Encounter Summary ---
Author Organization [facility] Address [facility] [place] [address] Care Team Providers Care Senior Research Associate Name Role Phone Cuate St MD Primary Care Provider [phone] Pallavi Rahman MD Unavailable Akshat Magana MD Primary Care Provider Josephine Aguilar MD Unavailable [phone] Eric Gauthier MD Unavailable [phone] Josephine Aguilar MD Primary Care Provider [phone] Demetri Edwards MD Unavailable [phone] Ronaldo Weston DO Primary Care Provider [phone] Encounter Details Date Type Department Care Team (Late st Contact Info) Description 09/24/2022 [facility] Documentation [facility] eld [address] [place] [phone] Pallavi Rahman MD [address] [place] [address] Social History Tobacco Use Types [...] place to sleep or slept in a intermediate (including now)? No 09/20/2022 Comments Unknown Sex and Gender Information Value Date Recorded Sex Assigned at Female 09/03/2024 11:46 AM HEALTHCARE APPLICATIONS ANALYST Legal Sex Female 2:43 AM CDT Gender Identity Not on file Sexual Orientation Not on file COVID-19 Exposure Response Date Recorded In the last 10 days, have yo u been in contact with someone who was confirmed or suspected to have Coronavirus/COVID-19? No / Unsure 09/04/2022 2:08 AM HEALTHCARE APPLICATIONS ANALYST documented as of this encounter Functional Status * RETIRED Are you deaf or do you have serious difficulty hearing Answer Date of Assessment Author Status No 09/04/2022 2:00 AM HEALTHCARE APPLICATIONS ANALYST Activ e * RETIRED Are you blind or do you have serious difficulty seeing, even when wearing glasses? Answer Date of Assessment Author Status No 09/04/2022 2:00 AM HEALTHCARE APPLICATIONS ANALYST Activ e * Do you have serious difficulty walking or climbing stairs? Answer Date of Assessment Author Status No 09/04/2022 2:00 AM HEALTHCARE APPLICATIONS ANALYST Lluvia Daugheryt RN Active * Do you have difficulty dressing or bathing? Answer Date of Assessment Author Status No 09/04/2022 2:00 AM HEALTHCARE APPLICATIONS ANALYST Lluvia Daugherty RN Active * Because of a physical, mental, or emotional condition, do you have difficulty doing errands alone such as visiting a doctor's office or shopping? Answer Date of Assessment Author Status No 09/04/2022 2:00 AM HEALTHCARE APPLICATIONS ANALYST Lluvia Daugherty RN Active documented as of [...] documented as of this encounter Care Teams Senior Research Associate Relationship Specialty Start Date End Date Cuate St MD [address] [place] [address] PCP - General INTERNAL MEDICINE 05/02/19 12/13/22 Akshat Magana MD [address] [place] [phone] PCP - General FAMILY PRACTICE 12/14/22 07/07/23 Josephine Aguilar MD [address] [place] [phone] PCP - General FAMILY PRACTICE 07/08/23 09/09/24 Ronaldo Weston DO [address] [place], [place] [phone] PCP - General FAMILY PRACTICE 09/10/24 Palalvi Rahman MD [address] [place] [address] Consulting Physician CARDIOVASCULAR DISEASE 08/25/22 Josephine Aguilar MD [address] [place] [phone] Physician FAMILY PRACTICE 03/14/23 Eric Gauthier MD [address] [place] [address] Consulting Physician CLINICAL CARDIAC ELECTROPHYSIOLOGY 06/18/23 Demetri Edwards MD [address] [place] [address] [place] [address] Consulting Physician SURGERY 05/07/24 05/07/25 documented as of this encounter
--- OUTSIDE RECORDS SUMMARY | 2025-04-01 15:14 | XMS_ITS | Clinical Summary ---
Author Organization [facility] Address [address] [place] [address] Care Team Providers Care Lead Software Architect Name Role Phone Akshat Magana MD Primary Care Provider [phone] Allergies No known active allergies Medications levothyroxine [...] (11/15/2020): Added automatically from request for surgery [id number] Encounter for screening colonoscopy 11/15/2020 Overview (11/15/2020): Added automatically from request for surgery [id number] Right upper quadrant abdominal pain 06/22/2015 Cardiac disease 03/16/2014 Rectal mass 03/16/2014 Screening for malignant neoplasm of cervix 03/16 Dysuria 03/16/2014 Lumbago 06/17/2012 Polyp of cervix 03/04/2012 Dysfunctional uterine bleeding 03/04/2012 Hypothyroidism Bipolar disorder Immunizations Immunization Administration Dates Next Due Influenza, Quadrivalent, Spl it, Preservative Free, Intramuscular 06/18/2023,11/10/2021 Surgical History Surgery Date Site/Laterality Comments STOMACH SURGERY Gastric Surgery - (Added by TW Conv) [place] DELIVERY ONLY Section - X3 1988/1989/2004 (Added by TW Conv) ECTOPIC SURGERY Laparoscopy With Excision Of Ectopic - (Added by TW Conv) SC CHOLECYSTECTOMY Cholecystectomy - (Added by TW Conv) [place] LIG/TRNSXJ FLP TUBE ABDL/ VAG APPR UNI/BI Tubal Ligation - (Added by TW Conv) SC HYSTEROSCOPY ENDOMETRIAL ABLATION Hysteroscopy With Endometrial Ablation [...] (Added by TW Conv) Hypothyroidism Bipolar disorder History of transfusion Arthritis Family History Medical [...] on file Legal Sex Female 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 Room: [facility] ENDOSCOPY ROOM 2 Note Status: [...] scope was passed under direct vision. TheColonoscope [id number] was introduced through the anus and advanced [...] malignant neoplasm of colon CPT copyright 2019 [employer]. All rights reserved. The codes documented in this report are preliminary and upon reimbursement analyst reviewmay be revised to meet current compliance requirements. Recognized by the [employer] for promoting quality in endoscopy us Josafat Kumar MD ENDOSCOPY PROCEDURES Final Re sult * Screening Mammogram W Juan Carlos (03/16/2014 1:07 PM CDT) Anatomical Region Laterality Modality Breast N/A Mammography 03/16/2014 1:07 PM CDT Narrative 03/18/2014 10:18 AM CDT LENORA VALLE M.D. FINAL REPORT ACC# Date Time Exam [id number] Mar 16, 2014 13:07:00 [facility] [id number] Bilateral screen w juan carlos Technologist(s): Blanche Nazario; ; EXAMINATION: Mammogram Technique: Bilateral Bilateral Full-Field Digital Screening Mammogram and Digital Breast Tomosynthesis were performed. Views obtained: bilateral craniocaudal and bilateral mediolateral oblique. Computer Aided Detection of the 2D images was performed with [employer] 1.3 version 9.3. Mammogram Findings: The present examination has been compared to a prior imaging study performed at [facility] on 03/04/2012. There are scattered fibroglandular [...] M.D. FINAL REPORT ACC# Date Time Exam [id number] Mar 16, 2014 13:07:00 [facility] [id number] Bilateral screen w juan carlos Technologist(s): Blanche Nazario; ; EXAMINATION: Mammogram Technique: Bilateral Bilateral Full-Field Digital Screening Mammogram and Digital Breast Tomosynthesis were performed. Views obtained: bilateral craniocaudal and bilateral mediolateral oblique. Computer AidedDetection of the 2D images was performed with [employer] 1.3 version 9.3. Mammogram Findings: The present examination has been compared to a prior imaging study performed at [facility] on 03/04/2012. There are scattered fibroglandular [...] Recently Relevant to Health Maintenance Insurance MEDICARE [facility] CHOICE PLUS [facility] OPEN ACCESS Advance Directives For more information, please contact: [phone] * Full Code (Latest Code Status on File) Date Activated Date Inactivated Comments 06/14/2023 1:07 PM 06/18/2023 3:43 PM * Full Code Date Activated Date Inactivated Comments 11/05/2021 1:49 PM 11/10/2021 12:54 PM * Full Code Date Activated Date Inactivated Comments 08/05/2021 7:39 AM 08/05/2021 1:53 PM * Full Code Date Activated Date Inactivated Comments 12/24/2020 7:43 AM 12/24/2020 3:06 PM Care Teams Lead Software Architect Relationship Specialty Start Date End Date Akshat Magana MD [address] [place] [phone] PCP - General Family Medicine 06/12/23
--- OUTSIDE RECORDS SUMMARY | 2025-04-01 15:14 | XMS_ITS | Encounter Summary ---
Author Organization [facility] Address [facility] [place] [address] Care Team Providers Care Bioinformatics Computer Scientist Name Role Phone Pallavi Rahman MD Unavailable Josephine Aguilar MD Unavailable [phone] Eric Gauthier MD Unavailable [phone] Josephine Aguilar MD Primary Care Provider + [phone] Demetri Edwards MD Unavailable [phone] Ronaldo Weston DO Primary Care Provider [phone] Encounter Details Date Type Department Care Team (Late st Contact Info) Description 01/29/2024 Community Orders [facility] EPICCARE LINK Danie Rodriguez MD [address] [place] [address] Social History Tobacco Use Types Packs/Day Years Used Date Smoking Tobacco: Every Day Cigarettes 1.5 42 Smokeless Tobacco: Never Alcohol Use Standard Drinks/Week Comments Not Currently 16.7 (1 standard drink = 0.6 oz pure alcohol) hx of alcoholism [facility] Utilities Answer Date Recorded In the past 12 months has th e [employer], gas, oil, or water [place] Everywhere threatened to shut off services in your [...] place to sleep or slept in a prison (including now)? No 07/20/2023 Comments No Sex [...] 5:21 PM Yoseph Ortiz RN Active * [place] Suicide Severity Rating Scale (Screener/Recent Self-Report) Question [...] documented as of this encounter Care Teams Bioinformatics Computer Scientist Relationship Specialty Start Date End Date Josephine Aguilar MD [address] [place] [phone] PCP - General FAMILY PRACTICE 07/08/23 09/09/24 Ronaldo Weston DO [address] [place], [place] [phone] PCP - General FAMILY PRACTICE 09/10/24 Pallavi Rahman MD [address] [place] [address] Consulting Physician CARDIOVASCULAR DISEASE 08/25/22 Josephine Aguilar MD [address] [place] [phone] Physician FAMILY PRACTICE 03/14/23 Eric Gauthier MD [address] [place] [address] Consulting Physician CLINICAL CARDIAC ELECTROPHYSIOLOGY 06/18/23 Demetri Edwards MD [address] [place] [address] [place] [address] Consulting Physician SURGERY 05/07/24 05/07/25 documented as of this encounter
--- OUTSIDE RECORDS SUMMARY | 2025-04-01 15:14 | XMS_ITS | Encounter Summary ---
Author Organization [facility] Address [facility] [place] [address] Care Team Providers Care School Nurse Name Role Phone Cuate St MD Primary Care Provider [phone] Pallavi Rahman MD Unavailable Akshat Magana MD Primary Care Provider Josephine Aguilar MD Unavailable [phone] Eric Gauthier MD Unavailable [phone] Josephine Aguilar MD Primary Care Provider + [phone] Demetri Edwards MD Unavailable [phone] Ronaldo Weston DO Primary Care Provider [phone] Encounter Details Date Type Department Care Team (Late st Contact Info) Description 09/20/2022 [employer] Message Enc [facility] [address] [address] [facility] Provider Response Social History Tobacco Use Types [...] place to sleep or slept in a correction (including now)? No 09/20/2022 Comments Unknown Sex and Gender Information Value Date Recorded Sex Assigned at Female 09/03/2024 11:46 AM SOFTWARE APPLICATION TESTER Legal Sex Female 2:43 AM CDT Gender Identity Not on file Sexual Orientation Not on file COVID-19 Exposure Response Date Recorded In the last 10 days, have yo u been in contact with someone who was confirmed or suspected to have Coronavirus/COVID-19? No / Unsure 09/04/2022 2:08 AM SOFTWARE APPLICATION TESTER documented as of this encounter Functional Status * RETIRED Are you deaf or do you have serious difficulty hearing Answer Date of Assessment Author Status No 09/04/2022 2:00 AM SOFTWARE APPLICATION TESTER Activ e * RETIRED Are you blind or do you have serious difficulty seeing, even when wearing glasses? Answer Date of Assessment Author Status No 09/04/2022 2:00 AM SOFTWARE APPLICATION TESTER Activ e * Do you have serious difficulty walking or climbing stairs? Answer Date of Assessment Author Status No 09/04/2022 2:00 AM SOFTWARE APPLICATION TESTER Lluvia Daugherty RN Active * Do you have difficulty dressing or bathing? Answer Date of Assessment Author Status No 09/04/2022 2:00 AM SOFTWARE APPLICATION TESTER Lluvia Daugherty RN Active * Because of [...] documented as of this encounter Care Teams School Nurse Relationship Specialty Start Date End Date Cuate St MD [address] [place] [address] PCP - General INTERNAL MEDICINE 05/02/19 12/13/22 Akshat Magana MD [address] [place] [phone] PCP - General FAMILY PRACTICE 12/14/22 07/07/23 Josephine Aguilar MD [address] [place] [phone] PCP - General FAMILY PRACTICE 07/08/23 09/09/24 Ronaldo Weston DO [address] [place] [address] PCP - General FAMILY PRACTICE 09/10/24 Pallavi Rahman MD [address] [place] [address] Consulting Physician CARDIOVASCULAR DISEASE 08/25/22 Josephine Aguilar MD [address] [place] [phone] Physician FAMILY PRACTICE 03/14/23 Eric Gauthier MD [address] [place] [address] Consulting Physician CLINICAL CARDIAC ELECTROPHYSIOLOGY 06/18/23 Demetri Edawrds MD [address] [place] [address] Consulting Physician SURGERY 05/07/24 05/07/25 documented as of this encounter
--- OUTSIDE RECORDS SUMMARY | 2025-04-01 15:15 | XMS_ITS | Clinical Summary ---
Author Organization [facility] Address [facility] [place] [address] Care Team Providers Care Rehabilitation Center Manager Name Role Phone Pallavi Rahman MD Unavailable Josephine Aguilar MD Unavailable [phone] Eric Gauthier MD Unavailable [phone] Demetri Edwards MD Unavailable [phone] Ronaldo Weston DO Primary Care Provider [phone] Allergies Active Allergy Reactions Criticality Noted Date Comments Bupropion Seizure,Other (see comment) 08/25/2022 delirium Carbamazepine Other (see comment) 08/25/2022 delirium Ciprofloxacin Rash Medium 07/27/2022 Clarithromycin Unknown 08/15/2018 [place] Zhang (Diagnostic) Unknown 01/28/2016 Tape Other (see [...] left foot, initial encounter 12/29/2022 Cerebellar stroke ([facility]) 08/08/2022 CVA (cerebral vascular accident) ([facility]/ [facility]) 07/31/2022 Acute embolic stroke ([facility]) 2 Acute embolic stroke ([facility]) 2 AMS (altered mental status) 07/27/2022 Family History Medical History Relation Comments Cancer Father Heart Father Heart murmur Mother Hyperlipidemia Mother Relation Status Comments Father Mother Social History Tobacco Use Types Packs/Day Years Used Date Smoking Tobacco: Every Day Cigarettes 1.5 42.6 Started: 2024; Last attempted to quit: 2023 [...] materials from doctor or pharmacy Never 07/25/2024 [facility] Utilities Answer Date Recorded In the past 12 months has e Pet Insurance Quotes, gas, oil, or water [employer] threatened to shut off services in your [...] place to sleep or slept in a snf (including now)? No 07/20/2023 Housing Stability Vital Sign Answer Mehul e Recorded In the last 12 months, was t here a time when you were not able to pay the mortgage or rent on time? No 05/14/2024 In the past 12 months, how m any times have you moved where you were living? 0 05/14/2024 At any time in the past 12 m [facility], were you homeless or living in a snf (including now)? No 05/14/2024 Comments No Sex and Gender Information Value Date Recorded Sex Assigned at Female 09/03/2024 11:46 AM BLEMISH REMOVER Legal Sex Female 2:43 AM CDT Gender Identity Not on file Sexual Orientation Not on file Last Filed Vital Signs Vital Sign Reading Time Taken Comments Blood Pressure 125/67 09/10/2024 9:57 AM BLEMISH REMOVER Pulse 85 09/10/2024 9:57 AM BLEMISH REMOVER Temperature 36.7 C (98 F) 07/18/2024 10:32 AM BLEMISH REMOVER Respiratory Rate 16 09/10/2024 9:57 AM BLEMISH REMOVER Oxygen Saturation 98% 09/10/2024 9:57 AM BLEMISH REMOVER Inhaled Oxygen Concentration - - Weight 99.2 kg (218 lb 9.6 oz) 09/10/2024 9:57 A M BLEMISH REMOVER Height 175.3 cm (5' 9) 09/10/2024 9:57 AM BLEMISH REMOVER Body Mass Index 32.28 09/10/2024 9:57 AM BLEMISH REMOVER Plan of Treatment Health Maintenance Due Date [...] 5 season) 2024 10/29/2020, 10/08/2020 PHQ-2 (Physician Heaters) 08/20/2024 Lung Cancer Screening 09/25/2024 09/25/2023 , [...] CHEST+ABD+PEL WO CON STAT 09/16/2023 2:00 AM BLEMISH REMOVER HEPATITIS PANEL,ACUTE Routine 08/10/2022 5:35 PM BLEMISH REMOVER from Last 3 Months or Most Recently Relevant to Health Maintenance Results * CT CHEST+ABD+PEL WO CON (09/16/2023 2:00 AM BLEMISH REMOVER) Anatomical Region Laterality Modality Chest, Abdomen, Pelvis Computed Tomography 09/16/2023 2:05 AM BLEMISH REMOVER Impressions 09/16/2023 2:12 AM BLEMISH REMOVER IMPRESSION: Increased stool throughout the colon and rectum. Small amount of gas within the right femoral vein and a tributary vein, likely iatrogenic. Referred By: Interpreted By: Josafat Bansal MD, 09/16/2023 2:05 AM Narrative 09/16/2023 2:[address] of the chest, abdomen and pelvis [...] * (ABNORMAL) HEPATITIS PANEL,ACUTE (08/10/2022 5:35 PM BLEMISH REMOVER) HEPATITIS B SURFACE AG NON-REACTIVE NON-REACT MICHELLE 08/11/2022 12:43 AM BLEMISH REMOVER [facility] Comment:HBsAg NOT DETECTED. HEP B CORE IGM NON-REACTIVE NON-REACT MICHELLE 08/11/2022 12:43 AM BLEMISH REMOVER [facility] Comment: IgM ANTI HBc NOT DETECTED. DOES NOT EXCLUDE THE POSSIBILITY OF EXPOSURE TO OR INFECTION WITH HBV. NO RETEST REQUIRED. HIGH DOSES OF BIOTIN MAY INTERFERE WITH THIS TEST RESULT. CORRELATION TO CLINICAL HISTORY AND PRESENTATION RECOMMENDED. HAV IGM NON-REACTIVE NON-REACT MICHELLE 08/11/2022 12:43 AM BLEMISH REMOVER [facility] Comment: IgM ANTI HAV NOT DETECTED. DOES NOT EXCLUDE THE POSSIBILITY OF EXPOSURE TO OR INFECTION WITH HAV. LEVELS OF IgM ANTI HAV MAY BE BELOW THE CUTOFF IN EARLY INFECTION. HEPATITIS C AB EQUIVOCAL RESULT(A) NON-REACT MICHELLE 08/11/2022 12:43 AM BLEMISH REMOVER [facility] Comment: Repeatedly inconclusive result for Hepatitis C Antibody. Repeat testing on a new specimen from the patient or additional testing by PCR for HCV virus is recommended. 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 09/05/2024 Insurance [facility] [place] [id number] Advance Directives Documents on File Type Date Recorded Patient Transmitter Supervisor Expl anation Advance Directives and Living Will [...] Agents on File Name Relationship Healthcare Agent Relationssd p Communication Sandeep [facility] Care Agent Care Teams Rehabilitation Center Manager Relationship Specialty Start Date End Date Ronaldo Weston DO [address] [place] [address] PCP - General FAMILY PRACTICE 09/10/24 Pallavi Rahman MD [address] [place] [address] Consulting Physician CARDIOVASCULAR DISEASE 08/25/22 Josephine Aguilar MD [address] [place] [address] Physician FAMILY PRACTICE 03/14/23 Eric Gauthier MD [address] [place] [address] Consulting Physician CLINICAL CARDIAC ELECTROPHYSIOLOGY 06/18/23 Demetri Edwards MD [facility] [place] [address] Consulting Physician SURGERY 05/07/24 05/07/25
== END 2025-04-01 15:12 | disposition home or self-care (01) ==
LOC: CHSLAB 15:13
PROVIDERS: Visit Provider Nurse Practitioner Family
DX: Z11.4 Encounter for screening for human immunodeficiency virus [HIV] (principal); Z12.4 Encounter for screening for malignant neoplasm of cervix; Z11.51 Encounter for screening for human papillomavirus (HPV); Z11.8 Encounter for screening for other infectious and parasitic diseases; Z11.3 Encounter for screening for infections with a predominantly sexual mode of transmission
CPT/HCPCS: 87491; 87591; 87624; 88175; G0145

== ENCOUNTER 2025-04-02 07:46 | Outpatient (CLI) | payer MEDICARE, SELFPAY ==
--- NOTE | ~2025-04-02 | MM_ITS ---
EXAMINATION: MM screening andrew BI w deedee HISTORY: Screening TECHNIQUE: Craniocaudal and mediolateral oblique 3-D tomosynthesis images were obtained and synthetic 2-D images were generated. CAD analysis was submitted and interpreted. COMPARISON: Comparison to multiple prior studies sequentially, with oldest reviewed study dated 02/27. BREAST PARENCHYMAL COMPOSITION: Not dense: There are scattered areas of fibroglandular density. FINDINGS: There is no evidence of suspicious mass, calcification, or architectural distortion to sugg est malignancy in either breast. There has been no suspicious interval change. IMPRESSION: 1. No mammographic evidence of malignancy. 2. Recommend routine screening mammography in one year. BI-RADS Category 1: Negative Reviewed, dictated and finalized at location A.
--- OUTSIDE RECORDS SUMMARY | 2025-04-02 07:51 | XMS_ITS | Clinical Summary ---
Author Organization [facility] Address [address] [place] [address] Phone Care Team Providers Care Belt Cleaner Name Role Phone Unavailable Primary Care Provider [...] Insurance MEDICARE C BCBS PPO [place] [id number]
--- OUTSIDE RECORDS SUMMARY | 2025-04-02 07:51 | XMS_ITS | Encounter Summary ---
Author Organization [facility] Address [facility] access hospital[address] [place] [address] Care Team Providers Care Felt Coverer Name Role Phone Cuate St MD Primary Care Provider [phone] Pallavi Rahman MD Unavailable Akshat Magana MD Primary Care Provider Josephine Aguilar MD Unavailable [phone] Eric Gauthier MD Unavailable [phone] Josephine Aguilar MD Primary Care Provider + [phone] Demetri Edwards MD Unavailable [phone] Ronaldo Weston DO Primary Care Provider [phone] Encounter Details Date Type Department Care Team (Late st Contact Info) Description 08/02/2022 Hospital Follow-up Call [facility] [address] [place] [address] Poonam Zimmerman RN Social History Tobacco Use Types Packs/Day Years Used Date Smoking Tobacco: Every Day Cigarettes Smokeless Tobacco: Never Alcohol Use Standard Drinks/Week Comments Not Currently 0 (1 standard drink = 0.6 oz pur e alcohol) hx of alcoholism Comments Unknown Sex and Gender Information Value Date Recorded Sex Assigned at Female 09/03/2024 11:46 AM STAFF ANESTHESIOLOGIST Legal Sex Female 2:43 AM CDT Gender Identity Not on file Sexual Orientation Not on file COVID-19 Exposure Response Date Recorded In the last 10 days, have edilberto u been in contact with someone who was confirmed or suspected to have Coronavirus/COVID-19? No / Unsure 07/29/2022 12:35 AM STAFF ANESTHESIOLOGIST documented as of this encounter Functional Status * RETIRED Are you deaf or do you have serious difficulty hearing Answer Date of Assessment Author Status No 07/27/2022 3:53 PM STAFF ANESTHESIOLOGIST Activ e * RETIRED Are you blind or do you have serious difficulty seeing, even when wearing glasses? Answer Date of Assessment Author Status No 07/27/2022 3:53 PM STAFF ANESTHESIOLOGIST Activ e * Do you have serious difficulty walking or climbing stairs? Answer Date of Assessment Author Status Yes 07/27/2022 3:53 PM STAFF ANESTHESIOLOGIST Shakira Nicole RN Active * Do you have difficulty dressing or bathing? Answer Date of Assessment Author Status Yes 07/27/2022 3:53 PM STAFF ANESTHESIOLOGIST Shakira Nicole RN Active * Because of a physical, mental, or emotional condition, do you have difficulty doing errands alone such as visiting a doctor's office or shopping? Answer Date of Assessment Author Status Yes 07/27/2022 3:53 PM STAFF ANESTHESIOLOGIST Shakira Nicole RN Active documented as of this encounter Mental Status * Because of a physical, mental, or emotional condition, do you have serious difficulty concentrating, remembering, or making decisions? Answer Entry Date Author Status Yes 07/27/2022 3:53 PM STAFF ANESTHESIOLOGIST Shakira Nicole RN Active documented in this encounter Plan of Treatment Not on file documented as of this encounter Visit Diagnoses Not on filedocumented in this encounter Additional Health Concerns Infection Onset Date Last Indicated Resolved Time COVID-19 Rule Out 09/08/2022 09/08/2022 09/08/2022 7:39 PM STAFF ANESTHESIOLOGIST MRSA 07/13/2023 09/05/2024 documented as of this encounter Care Teams Felt Coverer Relationship Specialty Start Date End Date Cuate [address] MD [address] [place] [address] PCP - General INTERNAL MEDICINE 05/02/19 12/13/22 Akshat Magana MD [address] [place] [phone] PCP - General FAMILY PRACTICE 12/14/22 07/07/23 Josephine Aguilar MD [address] [place] [phone] PCP - General FAMILY PRACTICE 07/08/23 09/09/24 Ronaldo Weston DO [address] [place] [address] PCP - General FAMILY PRACTICE 09/10/24 Palalvi Rahman MD [address] [place] [address] Consulting Physician CARDIOVASCULAR DISEASE 08/25/22 Josephine Aguilar MD [address] [place] [phone] Physician FAMILY PRACTICE 03/14/23 Eric Gauthier MD [address] [place] [address] Consulting Physician CLINICAL CARDIAC ELECTROPHYSIOLOGY 06/18/23 Demetri Edwards MD [address] [place] [address] [place] [address] Consulting Physician SURGERY 05/07/24 05/07/25 documented as of this encounter
--- OUTSIDE RECORDS SUMMARY | 2025-04-02 07:51 | XMS_ITS | Clinical Summary ---
Author Organization [facility] Address [address] [facility] [place] [address] Care Team Providers Care Reproduction Production Manager Name Role Phone Cuate St MD Primary Care Provider [phone] Source Comments [facility],non-owned Affiliates and Associated Physician Practices is amultiple site organization consisting of ambulatory clinics and hospital sitesin [place], [place], [place] and [place]. This disclosure is being madepursuant to the Care Everywhere program and may not contain all information available regarding this patient. Last updated 18.[facility] Allergies Active Allergy Reactions Criticality Noted Date Comments Bupropion Unknown,Psychiatric, Seizures High 08/25/2022 delirium delirium Carbamazepine Other,Psychiatric Medium 08/25/2022 Described as delirrium delirium delirium Ciprofloxacin Rash Medium 07/27/2022 [place] Zhang (Diagnostic) Other 09/17/2023 Described as allergy [...] and heating? Patient unable to answer 10/11/2023 [facility] [place] of Occupat ional Health - Occupational Stress [...] Comments Blood Pressure 140/75 10/23/2023 5:00 PM COMPLIANCE LEAD Pulse 85 10/23/2023 5:00 PM COMPLIANCE LEAD Temperature 37.4 C (99.3 F) 10/23/2023 12:00 PM COMPLIANCE LEAD Respiratory Rate 18 10/23/2023 5:05 PM COMPLIANCE LEAD Oxygen Saturation 98% 10/23/2023 5:05 PM COMPLIANCE LEAD Inhaled Oxygen Concentration 33% 10/23/2023 5 :05 PM COMPLIANCE LEAD Weight 107 kg (235 lb 14.3 oz) 10/18/2023 4:00 A M COMPLIANCE LEAD Height 172.7 cm (5' 8) 10/10/2023 7:45 PM COMPLIANCE LEAD Body Mass Index 35.87 10/10/2023 7:45 PM COMPLIANCE LEAD Plan of Treatment Health Maintenance Due Date [...] 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 Source: [facility]. Sputum - 09/26/22, 10/07/23 07/13/2023 MRSA [...] 5:47 AM 11/24/2020 11:07 AM Care Teams Reproduction Production Manager Relationship Specialty Start Date End Date Cuate St MD [address] [place] [address] PCP - General Internal Medicine 08/20/20
--- OUTSIDE RECORDS SUMMARY | 2025-04-02 07:51 | XMS_ITS | Clinical Summary ---
Author Organization [facility] Address [address] [place] [address] Care Team Providers Care Route Supervisor Name Role Phone Akshat Magana MD Primary Care Provider [phone] Allergies No known active allergies Medications levothyroxine [...] (11/15/2020): Added automatically from request for surgery [id number] Encounter for screening colonoscopy 11/15/2020 Overview (11/15/2020): Added automatically from request for surgery [id number] Right upper quadrant abdominal pain 06/22/2015 Cardiac disease 03/16/2014 Rectal mass 03/16/2014 Screening for malignant neoplasm of cervix 03/16 Dysuria 03/16/2014 Lumbago 06/17/2012 Polyp of cervix 03/04/2012 Dysfunctional uterine bleeding 03/04/2012 Hypothyroidism Bipolar disorder Immunizations Immunization Administration Dates Next Due Influenza, Quadrivalent, Spl it, Preservative Free, Intramuscular 06/18/2023,11/10/2021 Surgical History Surgery Date Site/Laterality Comments STOMACH SURGERY Gastric Surgery - (Added by TW Conv) [place] DELIVERY ONLY Section - X3 1988/1989/2004 (Added by TW Conv) ECTOPIC SURGERY Laparoscopy With Excision Of Ectopic - (Added by TW Conv) [place] CHOLECYSTECTOMY Cholecystectomy - (Added by TW Conv) [place] LIG/TRNSXJ FLP TUBE ABDL/ VAG APPR UNI/BI Tubal Ligation - (Added by TW Conv) [place] HYSTEROSCOPY ENDOMETRIAL ABLATION Hysteroscopy With Endometrial Ablation [...] on file Legal Sex Female 5:42 PM BIN CLEANER Gender Identity Not on file Sexual Orientation [...] R., MD - 12/24/2020 7:44 AM CDT [facility] Patient Name: Jolanta Montes Procedure Date: 12/24/2020 7:44 AM Date of : 1970 Admit Type: Outpatient Age: 50 Gender: Female Attending MD: Josafat Kumar M.D. Room: [facility] ENDOSCOPY ROOM 2 Note Status: Finalized [...] scope was passed under direct vision. TheColonoscope [id number] was introduced through the anus and advanced [...] malignant neoplasm of colon CPT copyright 2019 [employer]. All rights reserved. The codes documented in this report are preliminary and upon forestry worker reviewmay be revised to meet current compliance requirements. Recognized by the [place] [employer] for promoting quality in endoscopy us Josafat Kumar MD ENDOSCOPY PROCEDURES Final Re sult * Screening Mammogram W Juan Carlos (03/16/2014 1:07 PM CDT) Anatomical Region Laterality Modality Breast N/A Mammography 03/16/2014 1:07 PM CDT Narrative 03/18/2014 10:18 AM CDT LENORA VALLE M.D. FINAL REPORT ACC# Date Time Exam [id number] Mar 16, 2014 13:07:00 [facility] [id number] Bilateral screen w juan carlos Technologist(s): Blanche Nazario; ; EXAMINATION: Mammogram Technique: Bilateral Bilateral Full-Field Digital Screening Mammogram and Digital Breast Tomosynthesis were performed. Views obtained: bilateral craniocaudal and bilateral mediolateral oblique. Computer Aided Detection of the 2D images was performed with Ylopo 1.3 version 9.3. Mammogram Findings: The present examination has been compared to a prior imaging study performed at [facility] on 03/04/2012. There are scattered [...] M.D. FINAL REPORT ACC# Date Time Exam [id number] Mar 16, 2014 13:07:00 [facility] [id number] Bilateral screen w juan carlos Technologist(s): Blanche Nazario; ; EXAMINATION: Mammogram Technique: Bilateral Bilateral Full-Field Digital Screening Mammogram and Digital Breast Tomosynthesis were performed. Views obtained: bilateral craniocaudal and bilateral mediolateral oblique. Computer AidedDetection of the 2D images was performed with Ylopo 1.3 version 9.3. Mammogram Findings: The present examination has been compared to a prior imaging study performed at [facility] on 03/04/2012. There are scattered [...] Recently Relevant to Health Maintenance Insurance MEDICARE [facility] CHOICE PLUS [facility] OPEN ACCESS Advance Directives For more information, please contact: [phone] * Full Code (Latest Code Status on File) Date Activated Date Inactivated Comments 06/14/2023 1:07 PM 06/18/2023 3:43 PM * Full Code Date Activated Date Inactivated Comments 11/05/2021 1:49 PM 11/10/2021 12:54 PM * Full Code Date Activated Date Inactivated Comments 08/05/2021 7:39 AM 08/05/2021 1:53 PM * Full Code Date Activated Date Inactivated Comments 12/24/2020 7:43 AM 12/24/2020 3:06 PM Care Teams Route Supervisor Relationship Specialty Start Date End Date Akshat Magana MD [address] [place] [phone] PCP - General Family Medicine 06/12/23
--- OUTSIDE RECORDS SUMMARY | 2025-04-02 07:51 | XMS_ITS | Encounter Summary ---
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
--- OUTSIDE RECORDS SUMMARY | 2025-04-02 07:51 | XMS_ITS | Encounter Summary ---
Author Organization [facility] Address [facility] [place] [place] [address] Care Team Providers Care Director Of Cloud Services Name Role Phone Cuate St MD Primary Care Provider [phone] Pallavi Rahman MD Unavailable Akshat Magana MD Primary Care Provider [phone] Josephine Aguilar MD Unavailable [phone] Eric Gauthier MD Unavailable [phone] Josephine Aguilar MD Primary Care Provider [phone] Demetri Edwards MD Unavailable [phone] Ronaldo Weston DO Primary Care Provider [phone] Encounter Details Date Type Department Care Team (Late st Contact Info) Description 09/24/2022 [facility] Documentation [facility] eld [address] [place] [phone] Pallavi Rahman MD [address] [place] [address] Social History Tobacco Use Types [...] slept in a prison (including now)? No 09/20/2022 Comments Unknown Sex and Gender Information Value Date Recorded Sex Assigned at Female 09/03/2024 11:46 AM COMMERCIAL DRONE PILOT Legal Sex Female 2:43 AM CDT Gender Identity Not on file Sexual Orientation Not on file COVID-19 Exposure Response Date Recorded In the last 10 days, have yo u been in contact with someone who was confirmed or suspected to have Coronavirus/COVID-19? No / Unsure 09/04/2022 2:08 AM COMMERCIAL DRONE PILOT documented as of this encounter Functional Status * RETIRED Are you deaf or do you have serious difficulty hearing Answer Date of Assessment Author Status No 09/04/2022 2:00 AM COMMERCIAL DRONE PILOT Activ e * RETIRED Are you blind or do you have serious difficulty seeing, even when wearing glasses? Answer Date of Assessment Author Status No 09/04/2022 2:00 AM COMMERCIAL DRONE PILOT Activ e * Do you have serious difficulty walking or climbing stairs? Answer Date of Assessment Author Status No 09/04/2022 2:00 AM COMMERCIAL DRONE PILOT Lluvia Daugherty RN Active * Do you have difficulty dressing or bathing? Answer Date of Assessment Author Status No 09/04/2022 2:00 AM COMMERCIAL DRONE PILOT Lluvia Daugherty RN Active * Because of a physical, mental, or emotional condition, do you have difficulty doing errands alone such as visiting a doctor's office or shopping? Answer Date of Assessment Author Status No 09/04/2022 2:00 AM COMMERCIAL DRONE PILOT Lluvia Daugherty RN Active documented as of [...] documented as of this encounter Care Teams Director Of Cloud Services Relationship Specialty Start Date End Date Cuate St MD [address] [place] [address] PCP - General INTERNAL MEDICINE 05/02/19 12/13/22 Akshat Magana MD [address] [place] [phone] PCP - General FAMILY PRACTICE 12/14/22 07/07/23 Josephine Aguilar MD [address] [place] [phone] PCP - General FAMILY PRACTICE 07/08/23 09/09/24 Ronaldo Weston DO [address] [place], [place] [phone] PCP - General FAMILY PRACTICE 09/10/24 Pallavi Rahman MD [address] [place] [address] Consulting Physician CARDIOVASCULAR DISEASE 08/25/22 Josephine Aguilar MD [address] [place] [phone] Physician FAMILY PRACTICE 03/14/23 Eric Gauthier MD [address] [place] [address] Consulting Physician CLINICAL CARDIAC ELECTROPHYSIOLOGY 06/18/23 Demetri Edwards MD [address] [place] [address] [place] [address] Consulting Physician SURGERY 05/07/24 05/07/25 documented as of this encounter
--- OUTSIDE RECORDS SUMMARY | 2025-04-02 07:51 | XMS_ITS | Encounter Summary ---
Author Organization [facility] Address [facility] [place] [address] Care Team Providers Care Bee Robber Name Role Phone Pallavi Rahman MD Unavailable Josephine Aguilar MD Unavailable [phone] Eric Gauthier MD Unavailable [phone] Josephine Aguilar MD Primary Care Provider + [phone] Demetri Edwards MD Unavailable [phone] Ronaldo Weston DO Primary Care Provider [phone] Encounter Details Date Type Department Care Team (Late st Contact Info) Description 01/29/2024 Community Orders [facility] EPICCARE LINK Danie Rodriguez MD [address] [place] [address] Social History Tobacco Use Types Packs/Day Years Used Date Smoking Tobacco: Every Day Cigarettes 1.5 42 Smokeless Tobacco: Never Alcohol Use Standard Drinks/Week Comments Not Currently 16.7 (1 standard drink = 0.6 oz pure alcohol) hx of alcoholism [facility] Utilities Answer Date Recorded In the past 12 months has th e [employer], gas, oil, or water [employer] threatened to shut off services in your [...] Assessment Author Status No 07/20/2023 6:12 PM Aiax Thompson R N Active * Do you [...] 5:21 PM Yoseph Ortiz RN Active * [place] Suicide Severity Rating Scale (Screener/Recent Self-Report) Question [...] documented as of this encounter Care Teams Bee Robber Relationship Specialty Start Date End Date Josephine Aguilar MD [address] [place] [phone] PCP - General FAMILY PRACTICE 07/08/23 09/09/24 Ronaldo Weston DO [address] [place], [place] [phone] PCP - General FAMILY PRACTICE 09/10/24 Pallavi Rahman MD [address] [place] [address] Consulting Physician CARDIOVASCULAR DISEASE 08/25/22 Josephine Aguilar MD [address] [place] [phone] Physician FAMILY PRACTICE 03/14/23 Eric Gauthier MD [address] [place] [address] Consulting Physician CLINICAL CARDIAC ELECTROPHYSIOLOGY 06/18/23 Demetri Edwards MD [address] [place] [address] [place] [address] Consulting Physician SURGERY 05/07/24 05/07/25 documented as of this encounter
--- OUTSIDE RECORDS SUMMARY | 2025-04-02 07:51 | XMS_ITS | Encounter Summary ---
Author Organization [facility] Address [facility] [place] [address] Care Team Providers Care Alteration Workroom Supervisor Name Role Phone Cuate St MD Primary Care Provider [phone] Pallavi Rahman MD Unavailable Akshat Magana MD Primary Care Provider Josephine Aguilar MD Unavailable [phone] Eric Gauthier MD Unavailable [phone] Josephine Aguilar MD Primary Care Provider + [phone] Demetri Edwards MD Unavailable [phone] Ronaldo Weston DO Primary Care Provider [phone] Encounter Details Date Type Department Care Team (Late st Contact Info) Description 09/20/2022 [employer] Message Enc [facility] [address] [phone] [facility] Provider Response Social History Tobacco [...] place to sleep or slept in a jail (including now)? No 09/20/2022 Comments Unknown Sex and Gender Information Value Date Recorded Sex Assigned at Female 09/03/2024 11:46 AM FARM CONTRACTOR Legal Sex Female 2:43 AM CDT Gender Identity Not on file Sexual Orientation Not on file COVID-19 Exposure Response Date Recorded In the last 10 days, have yo u been in contact with someone who was confirmed or suspected to have Coronavirus/COVID-19? No / Unsure 09/04/2022 2:08 AM FARM CONTRACTOR documented as of this encounter Functional Status * RETIRED Are you deaf or do you have serious difficulty hearing Answer Date of Assessment Author Status No 09/04/2022 2:00 AM FARM CONTRACTOR Activ e * RETIRED Are you blind or do you have serious difficulty seeing, even when wearing glasses? Answer Date of Assessment Author Status No 09/04/2022 2:00 AM FARM CONTRACTOR Activ e * Do you have serious difficulty walking or climbing stairs? Answer Date of Assessment Author Status No 09/04/2022 2:00 AM FARM CONTRACTOR Lluvia Daugherty RN Active * Do you have difficulty dressing or bathing? Answer Date of Assessment Author Status No 09/04/2022 2:00 AM FARM CONTRACTOR Lluvia Daugherty RN Active * Because of [...] documented as of this encounter Care Teams Alteration Workroom Supervisor Relationship Specialty Start Date End Date Cuate St MD [address] [place] [address] PCP - General INTERNAL MEDICINE 05/02/19 12/13/22 Akshat Magana MD [address] [place] [phone] PCP - General FAMILY PRACTICE 12/14/22 07/07/23 Josephine Aguilar MD [address] [place] [phone] PCP - General FAMILY PRACTICE 07/08/23 09/09/24 Ronaldo Weston DO [address] [place] [address] PCP - General FAMILY PRACTICE 09/10/24 Pallavi Rahman MD [address] [place] [address] Consulting Physician CARDIOVASCULAR DISEASE 08/25/22 Josephine Aguilar MD [address] [place] [phone] Physician FAMILY PRACTICE 03/14/23 Eric Gauthier MD [address] [place] [address] Consulting Physician CLINICAL CARDIAC ELECTROPHYSIOLOGY 06/18/23 Demetri Edwards MD [address] [place] [address] Consulting Physician SURGERY 05/07/24 05/07/25 documented as of this encounter
--- OUTSIDE RECORDS SUMMARY | 2025-04-02 07:52 | XMS_ITS | Clinical Summary ---
Author Organization [facility] Address [facility] [place] [address] Care Team Providers Care Emergency Worker Name Role Phone Pallavi Rahman MD Unavailable Josephine Aguilar MD Unavailable [phone] Eric Gauthier MD Unavailable [phone] Demetri Edwards MD Unavailable [phone] Ronaldo Weston DO Primary Care Provider [phone] Allergies Active Allergy Reactions Criticality Noted Date Comments Bupropion Seizure,Other (see comment) 08/25/2022 delirium Carbamazepine Other (see comment) 08/25/2022 delirium Ciprofloxacin Rash Medium 07/27/2022 Clarithromycin Unknown 08/15/2018 Hustler Zhang (Diagnostic) Unknown 01/28/2016 Tape Other (see [...] left foot, initial encounter 12/29/2022 Cerebellar stroke ([facility]) 08/08/2022 CVA (cerebral vascular accident) ([facility]) 07/31/2022 Acute embolic stroke ([facility]) 2 Acute embolic stroke ([facility]) 2 AMS (altered mental status) 07/27/2022 Family [...] materials from doctor or pharmacy Never 07/25/2024 [facility] Utilities Answer Date Recorded In the past 12 months has e [employer], gas, oil, or water [employer] threatened to shut off services in your [...] place to sleep or slept in a halfway (including now)? No 07/20/2023 Housing Stability Vital Sign Answer Mehul e Recorded In the last 12 months, was t here a time when you were not able to pay the mortgage or rent on time? No 05/14/2024 In the past 12 months, how m any times have you moved where you were living? 0 05/14/2024 At any time in the past 12 m [facility], were you homeless or living in a halfway (including now)? No 05/14/2024 Comments No Sex and Gender Information Value Date Recorded Sex Assigned at Female 09/03/2024 11:46 AM GRADES 7 AND 8 VISITING TEACHER Legal Sex Female 2:43 AM CDT Gender Identity Not on file Sexual Orientation Not on file Last Filed Vital Signs Vital Sign Reading Time Taken Comments Blood Pressure 125/67 09/10/2024 9:57 AM GRADES 7 AND 8 VISITING TEACHER Pulse 85 09/10/2024 9:57 AM GRADES 7 AND 8 VISITING TEACHER Temperature 36.7 C (98 F) 07/18/2024 10:32 AM GRADES 7 AND 8 VISITING TEACHER Respiratory Rate 16 09/10/2024 9:57 AM GRADES 7 AND 8 VISITING TEACHER Oxygen Saturation 98% 09/10/2024 9:57 AM GRADES 7 AND 8 VISITING TEACHER Inhaled Oxygen Concentration - - Weight 99.2 kg (218 lb 9.6 oz) 09/10/2024 9:57 A M GRADES 7 AND 8 VISITING TEACHER Height 175.3 cm (5' 9) 09/10/2024 9:57 AM GRADES 7 AND 8 VISITING TEACHER Body Mass Index 32.28 09/10/2024 9:57 AM GRADES 7 AND 8 VISITING TEACHER Plan of Treatment Health Maintenance Due Date [...] 5 season) 2024 10/29/2020, 10/08/2020 PHQ-2 (Physician [place]) 08/20/2024 Lung Cancer Screening 09/25/2024 09/25/2023 , [...] CHEST+ABD+PEL WO CON STAT 09/16/2023 2:00 AM GRADES 7 AND 8 VISITING TEACHER HEPATITIS PANEL,ACUTE Routine 08/10/2022 5:35 PM GRADES 7 AND 8 VISITING TEACHER from Last 3 Months or Most Recently Relevant to Health Maintenance Results * CT CHEST+ABD+PEL WO CON (09/16/2023 2:00 AM GRADES 7 AND 8 VISITING TEACHER) Anatomical Region Laterality Modality Chest, Abdomen, Pelvis Computed Tomography 09/16/2023 2:05 AM GRADES 7 AND 8 VISITING TEACHER Impressions 09/16/2023 2:12 AM GRADES 7 AND 8 VISITING TEACHER IMPRESSION: Increased stool throughout the colon and rectum. Small amount of gas within the right femoral vein and a tributary vein, likely iatrogenic. Referred By: Interpreted By: Josafat Bansal MD, 09/16/2023 2:05 AM Narrative 09/16/2023 2:12 AM GRADES 7 AND [address] of the chest, abdomen and pelvis [...] * (ABNORMAL) HEPATITIS PANEL,ACUTE (08/10/2022 5:35 PM GRADES 7 AND 8 VISITING TEACHER) HEPATITIS B SURFACE AG NON-REACTIVE NON-REACT MICHLELE 08/11/2022 12:43 AM GRADES 7 AND 8 VISITING TEACHER [facility] Comment:HBsAg NOT DETECTED. HEP B CORE IGM NON-REACTIVE NON-REACT MICHELLE 08/11/2022 12:43 AM GRADES 7 AND 8 VISITING TEACHER [facility] Comment: IgM ANTI HBc NOT DETECTED. DOES NOT EXCLUDE THE POSSIBILITY OF EXPOSURE TO OR INFECTION WITH HBV. NO RETEST REQUIRED. HIGH DOSES OF BIOTIN MAY INTERFERE WITH THIS TEST RESULT. CORRELATION TO CLINICAL HISTORY AND PRESENTATION RECOMMENDED. HAV IGM NON-REACTIVE NON-REACT MICHELLE 08/11/2022 12:43 AM GRADES 7 AND 8 VISITING TEACHER [facility] Comment: IgM ANTI HAV NOT DETECTED. DOES NOT EXCLUDE THE POSSIBILITY OF EXPOSURE TO OR INFECTION WITH HAV. LEVELS OF IgM ANTI HAV MAY BE BELOW THE CUTOFF IN EARLY INFECTION. HEPATITIS C AB EQUIVOCAL RESULT(A) NON-REACT MICHELLE 08/11/2022 12:43 AM GRADES 7 AND 8 VISITING TEACHER [facility] Comment: Repeatedly inconclusive result for Hepatitis C Antibody. Repeat testing on a new specimen from the patient or additional testing by PCR for HCV virus is recommended. 08/10/2022 5:35 PM GRADES 7 AND 8 VISITING TEACHER Max Ryan MD LABORATORY Fi nal Result [facility] [address] [place] [address], [phone] from Last 3 Months or Most Recently Relevant to Health Maintenance Additional Health Concerns Infection Onset Date Last Indicated MRSA 07/13/2023 09/05/2024 Insurance [facility] [place] [id number] Advance Directives Documents on File Type Date Recorded Patient Line Mechanic Expl anation Advance Directives and Living Will [...] Agents on File Name Relationship Healthcare Agent Relationsks p Communication Sandeep Jackson Health Care Agent Care Teams Emergency Worker Relationship Specialty Start Date End Date Ronaldo Weston DO [address] [place] [address] PCP - General FAMILY PRACTICE 09/10/24 Pallavi Rahman MD [address] [place] [address] Consulting Physician CARDIOVASCULAR DISEASE 08/25/22 Josephine Aguilar MD [address] [place] [address] Physician FAMILY PRACTICE 03/14/23 Eric Gauthier MD [address] [place] [address] Consulting Physician CLINICAL CARDIAC ELECTROPHYSIOLOGY 06/18/23 Demetri Edwards MD [facility] [facility] [place] [address] Consulting Physician SURGERY 05/07/24 05/07/25
--- OUTSIDE RECORDS SUMMARY | 2025-04-02 07:52 | XMS_ITS | Patient Health Record ---
Author Organization [facility] Address [address] [place] [address] Care Team Providers Care Global Compensation Manager Name Role Phone Hedy Collazo Unavailable [phone] Reason For Referral No Information Medications Medication SIG (Take, Route, Frequency, Duration) Notes Start Date End Date Status LACOSAMIDE 200 MG TABLET *Reorder from [employer] for eRx and Interaction Alerts* 05/22/2023 Active [...] History Observation Description Sex Assigned At Female Plan Of Treatment No Information Insurance Providers Payer Name Payer Address Payer Phone Subscriber Number Group Number Insured Name Patient Relationship to Insured Coverage Start Date Coverage End Date Medicare-I l Medicare [address] [place] [phone] [id number] TIMO JIMENEZ Self - patient is the insured
[2025-04-02 08:25] LABS: Hematocrit 36.5 % (35.0-49.0); Hemoglobin 11.9 g/dL (12.0-15.0); Immature Granulocyte Percent A 0.3 % (0.0-0.0); Lymphocytes Absolute Auto 2.16 K/mm3 (1.10-4.50); Mean Corpuscular HGB Conc 32.6 g/dL (32-36); Mean Corpuscular Hemoglobin 26.6 pg (27.0-31.0); Mean Corpuscular Volume 81.7 fL (78.0-102.0); Nucleated Red Blood Cells Absolute Auto 0.00 K/mm3 (0.00-0.00); Nucleated Red Blood Cells Perc 0.0 % (0-0.0); Platelet Count Result 388 K/mm3 (150-420); Red Blood Count 4.47 M/mm3 (4.20-5.40); White Blood Count 5.9 K/mm3 (4.8-10.8)
[2025-04-02 08:53] LABS: Alanine Aminotransferase 22 U/L (6-35); Albumin Level 4.1 g/dL (3.5-5.1); Alkaline Phosphatase 120 U/L (38-126); Anion Gap 5 mmol/L (4-12); Aspartate Amino Transferase 26 U/L (14-36); Bilirubin,Total 0.4 mg/dL (0.2-1.3); Blood Urea Nitrogen 10 mg/dL (7-17); Calcium 9.1 mg/dL (8.4-10.2); Carbon Dioxide 24 mmol/L (22-30); Chloride 99 mmol/L (98-107); Cholesterol 130 mg/dL (0-200); Estimated Glomerular Filt Rate > 60; Glucose 94 mg/dL (65-110); HDL Direct 59 mg/dL; Osmolality Calculated 265 mOsm/kg (285-295); Potassium 4.4 mmol/L (3.4-5.0); Sodium 128 mmol/L (137-145); Total Protein 6.5 g/dL (6.3-8.2); Triglycerides 87 mg/dL (<150)
[2025-04-02 09:25] LABS: Thyroid Stimulating Hormone Reflex 7.170 uIU/mL (0.465-4.68)
[2025-04-02 09:44] LABS: Vitamin B12 809.0 pg/mL (239-931)
[2025-04-02 10:11] LABS: Free T4 Free Thyroxine Reflex 1.44 ng/dL (0.78-2.19)
[2025-04-03 18:28] LABS: Ferritin 7.75 ng/mL (11.1-264)
[2025-04-04 07:22] LABS: Iron 38 ug/dL (37-170)
[2025-04-04 07:31] LABS: Percent Iron Saturation 9 % (20-50)
== END 2025-04-02 07:47 | disposition home or self-care (01) ==
LOC: CHSIMG 07:48
PROVIDERS: PCP Family Medicine; Visit Provider Nurse Practitioner Family
DX: I48.0 Paroxysmal atrial fibrillation (principal); R07.9 Chest pain, unspecified; R53.83 Other fatigue; E03.9 Hypothyroidism, unspecified; Z12.39 Encounter for other screening for malignant neoplasm of breast; E61.1 Iron deficiency; Z12.31 Encounter for screening mammogram for malignant neoplasm of breast; Z68.31 Body mass index [BMI] 31.0-31.9, adult
CPT/HCPCS: 36415; 77063; 77067; 80053; 80061; 82306; 82607; 82728; 83540; 83550; 84439; 84443; 85025

== ENCOUNTER 2025-04-07 07:43 | Outpatient (CLI) | payer MEDICARE, SELFPAY ==
--- OUTSIDE RECORDS SUMMARY | 2025-04-07 07:52 | XMS_ITS | Clinical Summary ---
Author Organization [facility] Address [address] [place] [address] Care Team Providers Care Utilities Manager Name Role Phone Akshat Magana MD Primary Care Provider [phone] Allergies No known active allergies Medications levothyroxine [...] (11/15/2020): Added automatically from request for surgery [id number] Encounter for screening colonoscopy 11/15/2020 Overview (11/15/2020): Added automatically from request for surgery [id number] Right upper quadrant abdominal pain 06/22/2015 Cardiac disease 03/16/2014 Rectal mass 03/16/2014 Screening for malignant neoplasm of cervix 03/16 Dysuria 03/16/2014 Lumbago 06/17/2012 Polyp of cervix 03/04/2012 Dysfunctional uterine bleeding 03/04/2012 Hypothyroidism Bipolar disorder Immunizations Immunization Administration Dates Next Due Influenza, Quadrivalent, Spl it, Preservative Free, Intramuscular 06/18/2023,11/10/2021 Surgical History Surgery Date Site/Laterality Comments STOMACH SURGERY Gastric Surgery - (Added by TW Conv) [place] DELIVERY ONLY Section - X3 1988/1989/2004 (Added by TW Conv) ECTOPIC SURGERY Laparoscopy With Excision Of Ectopic - (Added by TW Conv) [place] CHOLECYSTECTOMY Cholecystectomy - (Added by TW Conv) [place] LIG/TRNSXJ FLP TUBE ABDL/ VAG APPR UNI/BI Tubal Ligation - (Added by TW Conv) [place] HYSTEROSCOPY ENDOMETRIAL ABLATION Hysteroscopy With Endometrial Ablation [...] on file 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 Room: [facility] ENDOSCOPY ROOM 2 Note Status: Finalized Patient [...] scope was passed under direct vision. TheColonoscope [id number] was introduced through the anus and advanced [...] malignant neoplasm of colon CPT copyright 2019 [employer]. All rights reserved. The codes documented in this report are preliminary and upon machine stripper reviewmay be revised to meet current compliance requirements. Recognized by the [employer] for promoting quality in endoscopy us Josafat Kumar MD ENDOSCOPY PROCEDURES Final Re sult * Screening Mammogram W Juan Carlos (03/16/2014 1:07 PM CDT) Anatomical Region Laterality Modality Breast N/A Mammography 03/16/2014 1:07 PM CDT Narrative 03/18/2014 10:18 AM CDT LENORA VALLE M.D. FINAL REPORT ACC# Date Time Exam [id number] Mar 16, 2014 13:07:00 [facility] [id number] Bilateral screen w juan carlos Technologist(s): Blanche Nazario; ; EXAMINATION: Mammogram Technique: Bilateral Bilateral Full-Field Digital Screening Mammogram and Digital Breast Tomosynthesis were performed. Views obtained: bilateral craniocaudal and bilateral mediolateral oblique. Computer Aided Detection of the 2D images was performed with Double Fusion 1.3 version 9.3. Mammogram Findings: The present examination has been compared to a prior imaging study performed at [facility] on 03/04/2012. There are scattered fibroglandular densities. There is no suspicious abnormality in either breast. IMPRESSION: Annual screening mammography is recommended. OVERALL FINAL ASSESSMENT: BI-RADS CATEGORY 1: Negative. Requested By: Darlene Ace M.D. Dictated By: LENORA VALLE M.D. on Mar 18 2014 10:18A This document has been electronically signed by: LENORA VLALE M.D. on Mar 18 2014 10:17A Procedure Note Provider, MD Melanie - 12/10/2016 LENORA VALLE M.D. FINAL REPORT ACC# Date Time Exam [id number] Mar 16, 2014 13:07:00 [facility] [id number] Bilateral screen w juan carlos Technologist(s): Blanche Nazario; ; EXAMINATION: Mammogram Technique: Bilateral Bilateral Full-Field Digital Screening Mammogram and Digital Breast Tomosynthesis were performed. Views obtained: bilateral craniocaudal and bilateral mediolateral oblique. Computer AidedDetection of the 2D images was performed with Double Fusion 1.3 version 9.3. Mammogram Findings: The present examination has been compared to a prior imaging study performed at [facility] on 03/04/2012. There are scattered fibroglandular [...] Recently Relevant to Health Maintenance Insurance MEDICARE [facility] Address: [address] [address] [place] [address] [facility] CHOICE PLUS [facility] OPEN ACCESS Advance Directives For more information, please contact: [phone] * Full Code (Latest Code Status on File) Date Activated Date Inactivated Comments 06/14/2023 1:07 PM 06/18/2023 3:43 PM * Full Code Date Activated Date Inactivated Comments 11/05/2021 1:49 PM 11/10/2021 12:54 PM * Full Code Date Activated Date Inactivated Comments 08/05/2021 7:39 AM 08/05/2021 1:53 PM * Full Code Date Activated Date Inactivated Comments 12/24/2020 7:43 AM 12/24/2020 3:06 PM Care Teams Utilities Manager Relationship Specialty Start Date End Date Akshat Magana MD [address] [place] [address] PCP - General Family Medicine 06/12/23
--- OUTSIDE RECORDS SUMMARY | 2025-04-07 07:52 | XMS_ITS | Patient Health Record ---
Author Organization [facility] [place] Address [address] [place] [address] Care Team Providers Care Patron Attendant Name Role Phone Hedy Collazo Unavailable [phone] Reason For Referral No Information Medications Medication SIG (Take, Route, Frequency, Duration) Notes Start Date End Date Status LACOSAMIDE 200 MG TABLET *Reorder from ForceManager for eRx and Interaction Alerts* 05/22/2023 Active hydrOXYzine Pamoate 25 MG Capsule Oral 05/22/2023 Active levETIRAcetam 1000 MG Tablet Oral 05/22/2023 Active Eliquis 5 MG Tablet Oral 05/22/2023 Active Meclizine HCl 25 MG Tablet Oral 05/22/2023 Active Pantoprazole Sodium 40 MG Tablet Delayed Release Oral 05/22/2023 Active hydrOXYzine HCl 25 MG Tablet Oral 05/22/2023 Active Lisinopril 40 MG Tablet Oral 05/22/2023 Active traZODone HCl 50 MG Tablet Oral 05/22/2023 Active Aspirin Adult Low Strength 81 MG Tablet Delayed Release Oral 05/22/2023 Active Gabapentin 300 MG Capsule Oral 05/22/2023 Active HYDROcodone-Acetamino phen 5-325 MG Tablet Oral 05/22/2023 Active DULoxetine HCl 60 MG Capsule Delayed Release Particles Oral 05/22/2023 Active QUEtiapine Fumarate 300 MG Tablet Oral 05/22/2023 Active Famotidine 40 MG Tablet Oral 05/22/2023 Active QUEtiapine Fumarate 50 MG Tablet Oral 05/22/2023 Active NIFEdipine ER 90 MG Tablet Extended Release 24 Hour Oral 05/22/2023 Active HYDROcodone-Acetamino phen 10-325 MG Tablet Oral 05/22/2023 Active Metoprolol Succinate ER 25 MG Tablet Extended Release 24 Hour Oral 05/22/2023 Active Atorvastatin Calcium 40 MG Tablet Oral 05/22/2023 Active Disulfiram 250 mg Tablet Oral 05/22/2023 Active Carvedilol 25 MG Tablet Oral 05/22/2023 Active Levothyroxine Sodium 175 MCG Tablet Oral 05/22/2023 Active carBAMazepine ER 200 MG Tablet Extended Release 12 Hour Oral 05/22/2023 Active NIFEdipine ER Osmotic Release 60 MG Tablet Extended Release 24 Hour Oral 05/22/2023 Active Social History Sex Assigned At : Social History Observation Description Sex Assigned At Female Plan Of Treatment No Information Insurance Providers Payer Name Payer Address Payer Phone Subscriber Number Group Number Insured Name Patient Relationship to Insured Coverage Start Date Coverage End Date Medicare-I l Medicare [address] [place] [id number] TIMO JIMENEZ Self - patient is the insured
--- OUTSIDE RECORDS SUMMARY | 2025-04-07 07:52 | XMS_ITS | Encounter Summary ---
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
--- OUTSIDE RECORDS SUMMARY | 2025-04-07 07:52 | XMS_ITS | Clinical Summary ---
Author Organization [facility] Address [address] [place] [address] Phone Care Team Providers Care Settlement Clerk Name Role Phone Unavailable Primary Care Provider [...] Insurance MEDICARE C BCBS PPO MICHAEL LOGAN [id number]
--- OUTSIDE RECORDS SUMMARY | 2025-04-07 07:52 | XMS_ITS | Clinical Summary ---
Author Organization [facility] Address [address] [place] [address] Care Team Providers Care Sheetmetal Trades Worker Name Role Phone Cuate St MD Primary Care Provider [phone] Source Comments [facility],non-owned Affiliates and Associated Physician Practices is amultiple site organization consisting of ambulatory clinics and hospital sitesin [place], [place], [place] and [place]. This disclosure is being madepursuant to the Care Everywhere program and may not contain all information available regarding this patient. Last updated 18.[facility] Allergies Active Allergy Reactions Criticality Noted Date Comments Bupropion Unknown,Psychiatric, Seizures High 08/25/2022 delirium delirium Carbamazepine Other,Psychiatric Medium 08/25/2022 Described as delirrium delirium delirium Ciprofloxacin Rash Medium 07/27/2022 [place] Zhang (Diagnostic) Other 09/17/2023 Described as allergy [...] and heating? Patient unable to answer 10/11/2023 [facility] of Occupat ional Health - Occupational Stress [...] place to sleep or slept in a nursing home (including now)? Patient unable to answer 10/11/2023 Comments No Sex and Gender Information Value Date Recorded Sex Assigned at Not on file Legal Sex Female 1:11 AM CDT Gender Identity Not on file Sexual Orientation Not on file Last Filed Vital Signs Vital Sign Reading Time Taken Comments Blood Pressure 140/75 10/23/2023 5:00 PM BUSINESS PROJECT MANAGER Pulse 85 10/23/2023 5:00 PM BUSINESS PROJECT MANAGER Temperature 37.4 C (99.3 F) 10/23/2023 12:00 PM BUSINESS PROJECT MANAGER Respiratory Rate 18 10/23/2023 5:05 PM BUSINESS PROJECT MANAGER Oxygen Saturation 98% 10/23/2023 5:05 PM BUSINESS PROJECT MANAGER Inhaled Oxygen Concentration 33% 10/23/2023 5 :05 PM BUSINESS PROJECT MANAGER Weight 107 kg (235 lb 14.3 oz) 10/18/2023 4:00 A M BUSINESS PROJECT MANAGER Height 172.7 cm (5' 8) 10/10/2023 7:45 PM BUSINESS PROJECT MANAGER Body Mass Index 35.87 10/10/2023 7:45 PM BUSINESS PROJECT MANAGER Plan of Treatment Health Maintenance Due Date [...] 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 Source: [facility]. Sputum - 09/26/22, 10/07/23 07/13/2023 MRSA [...] 5:47 AM 11/24/2020 11:07 AM Care Teams Sheetmetal Trades Worker Relationship Specialty Start Date End Date Cuate St MD [address] [place] [address] PCP - General Internal Medicine 08/20/20
[2025-04-07 08:36] LABS: Alanine Aminotransferase 21 U/L (6-35); Albumin Level 4.6 g/dL (3.5-5.1); Alkaline Phosphatase 118 U/L (38-126); Anion Gap 11 mmol/L (4-12); Aspartate Amino Transferase 30 U/L (14-36); Bilirubin,Total 0.6 mg/dL (0.2-1.3); Blood Urea Nitrogen 9 mg/dL (7-17); Calcium 9.3 mg/dL (8.4-10.2); Carbon Dioxide 21 mmol/L (22-30); Chloride 101 mmol/L (98-107); Estimated Glomerular Filt Rate > 60; Glucose 93 mg/dL (65-110); Osmolality Calculated 274 mOsm/kg (285-295); Potassium 4.4 mmol/L (3.4-5.0); Sodium 133 mmol/L (137-145); Total Protein 7.1 g/dL (6.3-8.2)
== END 2025-04-07 07:44 | disposition home or self-care (01) ==
LOC: CHSLAB 07:44
PROVIDERS: PCP Family Medicine; Visit Provider Nurse Practitioner Family
DX: E87.1 Hypo-osmolality and hyponatremia (principal)
CPT/HCPCS: 36415; 80053

== ENCOUNTER 2025-07-21 13:24 | Outpatient (CLI) | payer MEDICARE, SELFPAY ==
[2025-07-21 13:46] LABS: Hematocrit 40.2 % (35.0-49.0); Hemoglobin 13.6 g/dL (12.0-15.0); Immature Granulocyte Percent A 0.2 % (0.0-0.0); Lymphocytes Absolute Auto 3.43 K/mm3 (1.10-4.50); Mean Corpuscular HGB Conc 33.8 g/dL (32-36); Mean Corpuscular Hemoglobin 28.0 pg (27.0-31.0); Mean Corpuscular Volume 82.7 fL (78.0-102.0); Nucleated Red Blood Cells Absolute Auto 0.00 K/mm3 (0.00-0.00); Nucleated Red Blood Cells Perc 0.0 % (0-0.0); Platelet Count Result 349 K/mm3 (150-420); Red Blood Count 4.86 M/mm3 (4.20-5.40); White Blood Count 9.6 K/mm3 (4.8-10.8)
--- OUTSIDE RECORDS SUMMARY | 2025-07-21 14:23 | XMS_ITS | Clinical Summary ---
Author Organization [facility] Address [address] [facility] [place] [address] Care Team Providers Care Home Security Alarm Installer Name Role Phone Cuate St MD Primary Care Provider [phone] Source Comments [facility],non-owned Affiliates and Associated Physician Practices is amultiple site organization consisting of ambulatory clinics and hospital sitesin [place], [place], [place] and [place]. This disclosure is being madepursuant to the Care Everywhere program and may not contain all information available regarding this patient. Last updated 18.[facility] Allergies Active Allergy Reactions Criticality Noted Date Comments Bupropion Unknown,Psychiatric, Seizures High 08/25/2022 delirium delirium Carbamazepine Other,Psychiatric Medium 08/25/2022 Described as delirrium delirium delirium Ciprofloxacin Rash Medium 07/27/2022 [place] Zhang (Diagnostic) Other 09/17/2023 Described as allergy [...] and heating? Patient unable to answer 10/11/2023 [facility] of Occupat ional Health - Occupational Stress [...] slept in a senior care (including now)? Patient unable to answer 10/11/2023 Comments No Sex and Gender Information Value Date Recorded Sex Assigned at Not on file Legal Sex Female 1:11 AM CDT Gender Identity Not on file Sexual Orientation Not on file Last Filed Vital Signs Vital Sign Reading Time Taken Comments Blood Pressure 140/75 10/23/2023 5:00 PM WIND FIELD MANAGER Pulse 85 10/23/2023 5:00 PM WIND FIELD MANAGER Temperature 37.4 C (99.3 F) 10/23/2023 12:00 PM WIND FIELD MANAGER Respiratory Rate 18 10/23/2023 5:05 PM WIND FIELD MANAGER Oxygen Saturation 98% 10/23/2023 5:05 PM WIND FIELD MANAGER Inhaled Oxygen Concentration 33% 10/23/2023 5 :05 PM WIND FIELD MANAGER Weight 107 kg (235 lb 14.3 oz) 10/18/2023 4:00 A M WIND FIELD MANAGER Height 172.7 cm (5' 8) 10/10/2023 7:45 PM WIND FIELD MANAGER Body Mass Index 35.87 10/10/2023 7:45 PM WIND FIELD MANAGER Plan of Treatment Health Maintenance Due [...] 50+ (1 of 2 - PCV) 1987 Cervical Cancer Screening 1989 PAP SMEAR 1989 PAP with HPV 1998 MAMMOGRAM 03/16/2016 03/16/2014 ZOSTER VACCINE (1 of 2) 2018 MEDICARE AWV CALENDAR YEAR 2024 COVID-19 VACCINE (1 - 2024-2 6 season) 2025 INFLUENZA VACCINE (#1) 2025 , 11/10/2021 COLON MONITORING 12/24/2030 12/24/2020 COLONOSCOPY - COLON CA SCREENING 12/24/2030 12/24/2020 Colorectal Cancer Screening 12/24/2030 HEPATITIS C SCREENING Completed 06/19/2023 HIV SCREENING Completed 06/19/2023 HIB VACCINE Aged [...] 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 Source: [facility]. Sputum - 09/26/22, 10/07/23 07/13/2023 MRSA 10/07/2023 10/07/2023 Insurance [facility] MEDICARE ADV HMO & PPO Advance Directives [...] 5:47 AM 11/24/2020 11:07 AM Care Teams Home Security Alarm Installer Relationship Specialty Start Date End Date Cuate St MD [address] [place] [address] [phone] PCP - General Internal Medicine 08/20/20
--- OUTSIDE RECORDS SUMMARY | 2025-07-21 14:23 | XMS_ITS | Encounter Summary ---
Author Organization [facility] Address [facility] [address] [place] [address] Care Team Providers Care Digital Marketing Lead Name Role Phone Pallavi Rahman MD Unavailable Josephine Aguilar MD Unavailable [phone] Eric Gauthier MD Unavailable [phone] Josephine Aguilar MD Primary Care Provider + [phone] Demetri Edwards MD Unavailable [phone] Ronaldo Weston DO Primary Care Provider [phone] Encounter Details Date Type Department Care Team (Late st Contact Info) Description 01/29/2024 Community Orders [facility] EPICCARE LINK Danie Rodriguez MD [address] [place] [address] Social History Tobacco Use Types Packs/Day Years Used Date Smoking Tobacco: Every Day Cigarettes 1.5 42 Smokeless Tobacco: Never Alcohol Use Standard Drinks/Week Comments Not Currently 16.7 (1 standard drink = 0.6 oz pure alcohol) hx of alcoholism [facility] Utilities Answer Date Recorded In the past 12 months has th e [employer], gas, oil, or water Load [employer] threatened to shut off services in your [...] slept in a intermediate (including now)? No 07/20/2023 Comments No Sex [...] 5:21 PM Yoseph Ortiz RN Active * [place] Suicide Severity Rating Scale (Screener/Recent Self-Report) Question [...] documented as of this encounter Care Teams Digital Marketing Lead Relationship Specialty Start Date End Date Josephine Aguilar MD [address] [place] [phone] PCP - General FAMILY PRACTICE 07/08/23 09/09/24 Ronaldo Weston DO [address] [place] [place], [place] [phone] PCP - General FAMILY PRACTICE 09/10/24 Pallavi Rahman MD [address] [place] [address] Consulting Physician CARDIOVASCULAR DISEASE 08/25/22 Josephine Aguilar MD [address] [place] [phone] Physician FAMILY PRACTICE 03/14/23 Eric Gauthier MD [address] [place] [address] Consulting Physician CLINICAL CARDIAC ELECTROPHYSIOLOGY 06/18/23 Demetri Edwards MD [address] [place] [address] [place] [address] Consulting Physician SURGERY 05/07/24 05/07/25 documented as of this encounter
--- OUTSIDE RECORDS SUMMARY | 2025-07-21 14:23 | XMS_ITS | Clinical Summary ---
Author Organization [facility] Address [address] [place] [address] Phone Care Team Providers Care Diet Consultant Name Role Phone Unavailable Primary Care [...] Insurance MEDICARE C BCBS PPO MICHAEL LOGAN [id number]
--- OUTSIDE RECORDS SUMMARY | 2025-07-21 14:23 | XMS_ITS | Encounter Summary ---
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 Gender Identity Not on file Sexual Orientation Not on file documented as of this encounter Functional Status * Serrano Fall Risk Question Answer Date of Assessment Author History of Falling 0 11/09/2021 10 :15 PM JORGET Cheyanne Huitron RN Secondary Diagnosis 0 11/09/2021 1 0:15 PM Cheyanne Rasmussen RN Ambulatory Aids 0 11/09/2021 10:15 PM CDT Cheyanne Huitron RN Intravenous Therapy/Heparin/Saline Lock 20 11/09/2021 10:15 PM CDT Cheyanne Huitron RN Gait/Transferring 0 11/09/2021 10: 15 PM CDT Cheyanne Huitron RN Mental Status 0 11/09/2021 10:15 PM CDT Cheyanne Huitron RN Auto Low/High - if selected proceed to interventions (retired) N/A-fall assessment required 11/08/2021 7:45 PM CDT Karlie Obrien RN Morse Fall Risk Score (Score >= 45 places fall precaution order) 20 11/09/2021 10:15 PM CDT Cheyanne Huitron RN * Jamie Scale Question Answer Date of Assessment Author Sensory Perceptions 4 11/09/2021 10:15 PM C Cheyanne Armenta RN Moisture 4 11/09/2021 10:15 PM CDT Cheyanne Mcgill RN Activity 4 11/09/2021 10:15 PM CDT Cheyanne Mcgill RN Mobility 4 11/09/2021 10:15 PM CDT Cheyanne Mcgill RN Nutrition 4 11/09/2021 10:15 PM CDT Cheyanne Mcgill RN Friction and Shear 3 11/09/2021 10:15 PM CD Cheyanne Sosa RN Jamie Scale Score 23 11/09/2021 10:15 PM CD Cheyanne Sosa RN * BP Location Answer Date of Assessment Author Left arm 11/09/2021 11:42 PM CDGeo Mora * BP Method Answer Date of Assessment Author Automatic 11/09/2021 11:42 PM Geo Marquez * Fall Risk Interventions Question Answer Date of Assessment Author All Low Fall Interventions Applied Yes 11/09/2021 10:15 PM Cheyanne Rasmussen RN All Moderate Fall Interventions Applied No 11/09/2021 10:15 PM Cheyanne Rasmussen RN All High Fall Risk Interventions Applied No 11/09/2021 10:15 PM Cheynane Rasmussen RN Reason For Exception(s) pt a/o, calls fo r help 11/09/2021 10:00 AM Roman Rojas, SAV * B.M.A.T. - Bedside Mobility Assessment Tool for Nurses Question Answer Date of Assessment Author Is patient able to participate in the BMAT? Yes 11/09/2021 10:15 PM Cheyanne Rasmussen RN BMAT Level Level 3 - Yellow 11/09/2021 10:1 5 PM Cheyanne Rasmussen RN Level 3 Equipment Use assistive device such as cane/walker 11/09/2021 10:15 PM Cheyanne Rasmussen, SAV * Question Answer Date of Assessment Author Is the patient being treated today because it is known or suspected that they prepared, started, or tried to end their life? No 11/08/2021 7:45 PM Karlie Mayfield RN * Question Answer Date of Assessment Author 1. In the past month, have y ou wished you were or that you could go to sleep and not wake up? No 11/08/2021 7:45 PM Karlie Mayfield RN 2. In the past month, have y ou actually had any thoughts of killing yourself? No 11/08/2021 7:45 PM Karlie Mayfield RN 6. Have you ever done anythi ng, started to do anything, or prepared to do anything to end your life? No 11/08/2021 7:45 PM Karlie Mayfield, SAV * Suicide Risk Level Answer Date of Assessment Author No risk level 11/08/2021 7:45 PM Pooja Mayfield RN * Alcohol Withdrawal Question Answer Date of Assessment Author Tremor 0 11/10/2021 7:35 AM Roman Hawkins RN Sweating 0 11/10/2021 7:35 AM Roman Hawkins, SAV Hallucinations 0 11/10/2021 7:35 AM Roman Smith, SAV Orientation 0 11/10/2021 7:35 AM Roman Hawkins, RN Contact 0 11/10/2021 7:35 AM JORGET Roman Enriquez RN Agitation 0 11/10/2021 7:35 AM CDT Roman Enriquez RN * Total Question Answer Date of Assessment Author Total 0 11/10/2021 7:35 AM JORGET Roman Enriquez RN * Pressure Injury Prevention Question Answer Date of Assessment Author Pressure Ulcer Prevention Interventions Keep skin clean and dry (Sensory Perception/Moisture ) 11/09/2021 10:15 PM Cheyanne Rasmussen RN * Integumentary Question Answer Date of Assessment Author Integumentary (WDL) WDL 11/09/2021 10:15 PM Cheyanne Morin RN * Question Answer Date of Assessment Author Affect Calm 11/09/2021 10:15 PM CDT Cheyanne Mcgill RN Mood Content 11/09/2021 10:15 PM CDT Cheyanne Mcgill RN * Question Answer Date of Assessment Author Percent Meal Eaten (%) 100 11/09/2021 6:10 PM CDT Sharron Quintana Percent Snack Eaten (%) 100 11/08/2021 1:00 P M Zelda Lindsey RN Diet Supplement Name/Percent Consumed % 100 11/08/2021 8:00 AM JORGET Tami Wills RN * BP Location Answer Date of Assessment Author Left arm 11/09/2021 11:42 PM Geo Marquez * BP Method Answer Date of Assessment Author Automatic 11/09/2021 11:42 PM Geo Marquez * Question Answer Date of Assessment Author Bed In Lowest Position Yes 11/09/2021 10:15 P M Cheyanne Rasmussen RN Bed Wheels Locked Yes 11/09/2021 10:15 PM Cheyanne Rasmussen RN * Fall Risk Interventions Question Answer Date of Assessment Author All Low Fall Interventions Applied Yes 11/09/2021 10:15 PM Cheyanne Rasmussen RN All Moderate Fall Interventions Applied No 11/09/2021 10:15 PM Cheyanne Rasmussen RN All High Fall Risk Interventions Applied No 11/09/2021 10:15 PM Cheyanne Rasmussen RN Reason For Exception(s) pt a/o, calls fo r help 11/09/2021 10:00 AM JORGET Roman Calzada RN * Question Answer Date of Assessment Author Hygiene Bathed/showered non-CHG 11/09/19 10:00 AM CDT Nata Walker Hygiene Level of Assistance Independent 11/09/2021 10:15 PM Cheyanne Rasmussen RN Toileting: Level of assistance Independent 11/09/2021 10:15 PM Cheyanne Rasmussen RN * Nutrition Question Answer Date of Assessment Author Feeding Level of Assistance Able to feed self 11/09/2021 10:15 PM Cheyanne Rasmussen RN Appetite Good 11/09/2021 10:00 AM CDT Roman Sy RN documented as of this encounter Mental Status * Question Answer Entry Date Author Level of Consciousness Alert;Awake 10:15 PM Cheyanne Rasmussen RN Orientation Oriented X4 (person, place, time, situation) 11/09/2021 10:15 PM Cheyanne Rasmussen RN * Question Answer Entry Date Author Neuro (WDL) X 11/09/2021 10:15 PM Cheyanne Clemons RN documented in this encounter Plan of Treatment Not on file documented as of this encounter Visit Diagnoses Not on filedocumented in this encounter Care Teams Auto Rental Supervisor Relationship Specialty Start Date End Date Cuate St MD PCP - General 09/11/06 06/11/23 Akshat Magana MD [address] [place] [id number] PCP - General Family Medicine 06/12/23 documented as of this encounter
--- OUTSIDE RECORDS SUMMARY | 2025-07-21 14:23 | XMS_ITS | Encounter Summary ---
Author Organization [facility] Address [facility] [place] [address] Care Team Providers Care Produce Manager Name Role Phone Cuate St MD Primary Care Provider [phone] Pallavi Rahman MD Unavailable Akshat Magana MD Primary Care Provider Josephine Aguilar MD Unavailable [phone] Eric Gauthier MD Unavailable [phone] Josephine Aguilar MD Primary Care Provider + [phone] Demetri Edwards MD Unavailable [phone] Ronaldo Weston DO Primary Care Provider [phone] Encounter Details Date Type Department Care Team (Late st Contact Info) Description 09/20/2022 [place] Message Enc [facility] [address] [phone] [facility] Provider Response Social History Tobacco [...] Sex Assigned at Female 09/03/2024 11:46 AM INFECTION PREVENTION SPECIALIST Legal Sex Female 2:43 AM CDT Gender Identity Not on file Sexual Orientation Not on file COVID-19 Exposure Response Date Recorded In the last 10 days, have yo u been in contact with someone who was confirmed or suspected to have Coronavirus/COVID-19? No / Unsure 09/04/2022 2:08 AM INFECTION PREVENTION SPECIALIST documented as of this encounter Functional Status * RETIRED Are you deaf or do you have serious difficulty hearing Answer Date of Assessment Author Status No 09/04/2022 2:00 AM INFECTION PREVENTION SPECIALIST Activ e * RETIRED Are you blind or do you have serious difficulty seeing, even when wearing glasses? Answer Date of Assessment Author Status No 09/04/2022 2:00 AM INFECTION PREVENTION SPECIALIST Activ e * Do you have serious difficulty walking or climbing stairs? Answer Date of Assessment Author Status No 09/04/2022 2:00 AM INFECTION PREVENTION SPECIALIST Lluvia Daugherty RN Active * Do you have difficulty dressing or bathing? Answer Date of Assessment Author Status No 09/04/2022 2:00 AM INFECTION PREVENTION SPECIALIST Lluvia Daugherty RN Active * Because of [...] documented as of this encounter Care Teams Produce Manager Relationship Specialty Start Date End Date Cuate St MD [address] [place] [address] PCP - General INTERNAL MEDICINE 05/02/19 12/13/22 Akshat Magana MD [address] [place] [phone] PCP - General FAMILY PRACTICE 12/14/22 07/07/23 Josephine Aguilar MD [address] [place] [phone] PCP - General FAMILY PRACTICE 07/08/23 09/09/24 Ronaldo Weston DO [address] [place] [address] PCP - General FAMILY PRACTICE 09/10/24 Pallavi Rahman MD [address] [place] [address] Consulting Physician CARDIOVASCULAR DISEASE 08/25/22 Josephine Aguilar MD [address] [place] [phone] Physician FAMILY PRACTICE 03/14/23 Eric Gauthier MD [address] [place] [address] Consulting Physician CLINICAL CARDIAC ELECTROPHYSIOLOGY 06/18/23 Demetri Edwards MD [address] [place] [address] Consulting Physician SURGERY 05/07/24 05/07/25 documented as of this encounter
--- OUTSIDE RECORDS SUMMARY | 2025-07-21 14:23 | XMS_ITS | Encounter Summary ---
Author Organization [facility] Address Pending sale to [facility] [place] [address] Care Team Providers Care Associate Director Regulatory Affairs Name Role Phone Cuate St MD Primary Care Provider [phone] Pallavi Rahman MD Unavailable Akshat Magana MD Primary Care Provider Josephine Aguilar MD Unavailable [phone] Eric Gauthier MD Unavailable [phone] Josephine Aguilar MD Primary Care Provider + [phone] Demetri Edwards MD Unavailable [phone] Ronaldo Weston DO Primary Care Provider [phone] Encounter Details Date Type Department Care Team (Late st Contact Info) Description 08/02/2022 Hospital Follow-up Call [facility] [address] [place] [address] Poonam Zimmerman RN Social History Tobacco Use Types Packs/Day Years Used Date Smoking Tobacco: Every Day Cigarettes Smokeless Tobacco: Never Alcohol Use Standard Drinks/Week Comments Not Currently 0 (1 standard drink = 0.6 oz pur e alcohol) hx of alcoholism Comments Unknown Sex and Gender Information Value Date Recorded Sex Assigned at Female 09/03/2024 11:46 AM MONITORING SPECIALIST Legal Sex Female 2:43 AM CDT Gender Identity Not on file Sexual Orientation Not on file COVID-19 Exposure Response Date Recorded In the last 10 days, have edilberto u been in contact with someone who was confirmed or suspected to have Coronavirus/COVID-19? No / Unsure 07/29/2022 12:35 AM MONITORING SPECIALIST documented as of this encounter Functional Status * RETIRED Are you deaf or do you have serious difficulty hearing Answer Date of Assessment Author Status No 07/27/2022 3:53 PM MONITORING SPECIALIST Activ e * RETIRED Are you blind or do you have serious difficulty seeing, even when wearing glasses? Answer Date of Assessment Author Status No 07/27/2022 3:53 PM MONITORING SPECIALIST Activ e * Do you have serious difficulty walking or climbing stairs? Answer Date of Assessment Author Status Yes 07/27/2022 3:53 PM MONITORING SPECIALIST Shakira Nicole RN Active * Do you have difficulty dressing or bathing? Answer Date of Assessment Author Status Yes 07/27/2022 3:53 PM MONITORING SPECIALIST Shakira Nicole RN Active * Because of a physical, mental, or emotional condition, do you have difficulty doing errands alone such as visiting a doctor's office or shopping? Answer Date of Assessment Author Status Yes 07/27/2022 3:53 PM MONITORING SPECIALIST Shakira Nicole RN Active documented as of this encounter Mental Status * Because of a physical, mental, or emotional condition, do you have serious difficulty concentrating, remembering, or making decisions? Answer Entry Date Author Status Yes 07/27/2022 3:53 PM MONITORING SPECIALIST Shakira Nicole RN Active documented in this encounter Plan of Treatment Not on file documented as of this encounter Visit Diagnoses Not on filedocumented in this encounter Additional Health Concerns Infection Onset Date Last Indicated Resolved Time COVID-19 Rule Out 09/08/2022 09/08/2022 09/08/2022 7:39 PM MONITORING SPECIALIST MRSA 07/13/2023 09/05/2024 documented as of this encounter Care Teams Associate Director Regulatory Affairs Relationship Specialty Start Date End Date Cuate St MD [address] [place] [address] PCP - General INTERNAL MEDICINE 05/02/19 12/13/22 Akshat Magana MD [address] [place] [phone] PCP - General FAMILY PRACTICE 12/14/22 07/07/23 Josephine Aguilar MD [address] [place] [place] [phone] PCP - General FAMILY PRACTICE 07/08/23 09/09/24 Ronaldo Weston DO [address] [place] [address] PCP - General FAMILY PRACTICE 09/10/24 Pallavi Rahman MD [address] [place] [address] Consulting Physician CARDIOVASCULAR DISEASE 08/25/22 Josephine Aguilar MD [address] [place] [place] [phone] Physician FAMILY PRACTICE 03/14/23 Eric Gauthier MD [address] [place] [phone] Consulting Physician CLINICAL CARDIAC ELECTROPHYSIOLOGY 06/18/23 Demetri Edwards MD [address] [place] [address] [place] [address] Consulting Physician SURGERY 05/07/24 05/07/25 documented as of this encounter
--- OUTSIDE RECORDS SUMMARY | 2025-07-21 14:23 | XMS_ITS | Encounter Summary ---
Author Organization [facility] Address [facility] [place] [address] Care Team Providers Care Quotation Checker Name Role Phone Cuate St MD Primary Care Provider [phone] Pallavi Rahman MD Unavailable Akshat Magana MD Primary Care Provider Josephine Aguilar MD Unavailable [phone] Eric Gauthier MD Unavailable [phone] Josephine Aguilar MD Primary Care Provider [phone] Demetri Edwards MD Unavailable [phone] Ronaldo Weston DO Primary Care Provider [phone] Encounter Details Date Type Department Care Team (Late st Contact Info) Description 09/24/2022 [facility] Documentation [facility] [address] [place] [phone] Pallavi Rahman MD [address] [place] [address] Social History Tobacco Use Types [...] in a senior care (including now)? No 09/20/2022 Comments Unknown Sex and Gender Information Value Date Recorded Sex Assigned at Female 09/03/2024 11:46 AM SPA ATTENDANT Legal Sex Female 2:43 AM CDT Gender Identity Not on file Sexual Orientation Not on file COVID-19 Exposure Response Date Recorded In the last 10 days, have yo u been in contact with someone who was confirmed or suspected to have Coronavirus/COVID-19? No / Unsure 09/04/2022 2:08 AM SPA ATTENDANT documented as of this encounter Functional Status * RETIRED Are you deaf or do you have serious difficulty hearing Answer Date of Assessment Author Status No 09/04/2022 2:00 AM SPA ATTENDANT Activ e * RETIRED Are you blind or do you have serious difficulty seeing, even when wearing glasses? Answer Date of Assessment Author Status No 09/04/2022 2:00 AM SPA ATTENDANT Activ e * Do you have serious difficulty walking or climbing stairs? Answer Date of Assessment Author Status No 09/04/2022 2:00 AM SPA ATTENDANT Lluvia Daugherty RN Active * Do you have difficulty dressing or bathing? Answer Date of Assessment Author Status No 09/04/2022 2:00 AM SPA ATTENDANT Lluvia Daugherty RN Active * Because of a physical, mental, or emotional condition, do you have difficulty doing errands alone such as visiting a doctor's office or shopping? Answer Date of Assessment Author Status No 09/04/2022 2:00 AM SPA ATTENDANT Lluvia Daugherty RN Active documented as of [...] documented as of this encounter Care Teams Quotation Checker Relationship Specialty Start Date End Date Cuate St MD [address] [place] [address] PCP - General INTERNAL MEDICINE 05/02/19 12/13/22 Akshat Magana MD [address] [place] [phone] PCP - General FAMILY PRACTICE 12/14/22 07/07/23 Josephine Aguilar MD [address] [place] [phone] PCP - General FAMILY PRACTICE 07/08/23 09/09/24 Ronaldo Weston DO [address] [place], [place] [phone] PCP - General FAMILY PRACTICE 09/10/24 Pallavi Rahman MD [address] [place] [address] Consulting Physician CARDIOVASCULAR DISEASE 08/25/22 Josephine Aguilar MD [address] [place] [phone] Physician FAMILY PRACTICE 03/14/23 Eric Gauthier MD [address] [place] [phone] Consulting Physician CLINICAL CARDIAC ELECTROPHYSIOLOGY 06/18/23 Demetri Edwards MD [address] [place] [address] [place] [address] Consulting Physician SURGERY 05/07/24 05/07/25 documented as of this encounter
--- OUTSIDE RECORDS SUMMARY | 2025-07-21 14:23 | XMS_ITS | Clinical Summary ---
Author Organization [facility] Address [facility] [place] [address] Care Team Providers Care Integrated Program Teacher Name Role Phone Pallavi Rahman MD Unavailable Josephine Aguilar MD Unavailable [phone] Eric Gauthier MD Unavailable [phone] Ronaldo Weston DO Primary Care Provider [phone] Allergies Active Allergy Reactions Criticality Noted Date Comments Bupropion Seizure,Other (see comment) 08/25/2022 delirium Carbamazepine Other (see comment) 08/25/2022 delirium Ciprofloxacin Rash Medium 07/27/2022 Clarithromycin Unknown 08/15/2018 [place] Zhang (Diagnostic) Unknown 01/28/2016 Tape Other (see [...] (two) times daily. Indications: Nerve Disease 11/21/19 23 Active magnesium oxide (MAG-OX) 400 (240 Mg) [...] mouth daily. Indications: Inadequate Vitamin B12 05/20/20 24 Active vitamin D3 (VITAMIN D) 25 mcg [...] left foot, initial encounter 12/29/2022 Cerebellar stroke 08/08/2022 CVA (cerebral vascular accident) 07/31/2022 Acute embolic stroke 07/30/2022 Acute embolic stroke 07/27/2022 AMS (altered mental status) 07/27/2022 Family History Medical History Relation Comments Cancer Father Heart Father Heart murmur Mother Hyperlipidemia Mother Relation Status Comments Father Mother Social History Tobacco Use Types Packs/Day Years Used Date Smoking Tobacco: Every Day Cigarettes 1.5 42.9 Started: 2024; Last attempted to quit: 2023 [...] materials from doctor or pharmacy Never 07/25/2024 [facility] Utilities Answer Date Recorded In the past 12 months has th e [employer], oil, or water [employer] threatened to shut off services in your [...] place to sleep or slept in a residential (including now)? No 07/20/2023 Housing Stability Vital Sign Answer Mehul e Recorded In the last 12 months, was t here a time when you were not able to pay the mortgage or rent on time? No 05/14/2024 In the past 12 months, how m any times have you moved where you were living? 0 05/14/2024 At any time in the past 12 m [facility], were you homeless or living in a residential (including now)? No 05/14/2024 Comments No Sex and Gender Information Value Date Recorded Sex Assigned at Female 09/03/2024 11:46 AM COVER MARKER Legal Sex Female 2:43 AM CDT Gender Identity Not on file Sexual Orientation Not on file Last Filed Vital Signs Vital Sign Reading Time Taken Comments Blood Pressure 125/67 09/10/2024 9:57 AM COVER MARKER Pulse 85 09/10/2024 9:57 AM COVER MARKER Temperature 36.7 C (98 F) 07/18/2024 10:32 AM COVER MARKER Respiratory Rate 16 09/10/2024 9:57 AM COVER MARKER Oxygen Saturation 98% 09/10/2024 9:57 AM COVER MARKER Inhaled Oxygen Concentration - - Weight 99.2 kg (218 lb 9.6 oz) 09/10/2024 9:57 A M COVER MARKER Height 175.3 cm (5' 9) 09/10/2024 9:57 AM COVER MARKER Body Mass Index 32.28 09/10/2024 9:57 AM COVER MARKER Plan of Treatment Health Maintenance Due Date Last Done Comments Cervical Cancer Screening Pap Smear (Age 30 to 64) Every 3 Years 1968 Colorectal Cancer Screening Colonoscopy (10 Years) 1968 Annual Physical 1971 Hepatitis B Vaccines (1 of 3 - 19+ 3-dose series) 1987 Pneumococcal Vaccine: 50+ Years (1 of 2 - PCV) 1987 Mammogram Screening 2008 Zoster Vaccines (2 of 2) 12/22/2018 10/27/2018 PHQ-2 (Physician [place]) 08/20/2024 Lung Cancer Screening 09/25/2024 09/25/2023, 024 COVID-19 Vaccine (3 - season) 2025 10/29/2020, 10/08/2020 Influenza Adult (#1) 2025 06/18/2023, 05/29/2022, 11/10/2021, Additional history exists DTaP, Tdap and Td Vaccines (3 - Td or Tdap) 04/11/2029 04/11/2019, 01/16/2013 Cervical Cancer Screening Pap with HPV Testing (Age 30 to 64) Every 5 Years 04/01/2030 04/01/2025 Cervical Cancer Screening with HPV 04/01/2030 Hepatitis C Completed 06/19/2023, 08/10/2022 Hepatitis A Vaccines Aged Out No long er eligible based on patient's age to complete this topic Meningococcal B Vaccine Aged Out No l onger eligible based on patient's age to complete this topic Meningococcal Vaccine Aged Out No nena ciara eligible based on patient's age to complete this topic RSV Immunizations Under 20 Months Aged Out No longer eligible based on patient's age to complete this topic Goals Goal Patient Goal Type Associated Problems Recent Progress Patient-Stated? Author Family - family caregiver with be involved in care transitions and discharge planning Lifestyle No Kathryn Farrell, RN Safety - able to safely ambulate at home; tripping hazards removed from the home Lifestyle No Madyson Ortega RN Procedures Procedure Name Priority Date/Time Associated Diagnosis Comments HC HPV AMP Routine 04/01/2025 12:[address] CHEST+ABD+PEL WO CON STAT 09/16/2023 2:00 AM COVER MARKER HEPATITIS PANEL,ACUTE Routine 08/10/2022 5:35 PM COVER MARKER from Last 3 Months or Most Recently Relevant to Health Maintenance Results * HUMAN PAPILLOMAVIRUS, HIGH-RISK TYPES (04/01/2025 12:00 PM CDT) SPEC DESCRIPTION CERVIX 04/08/20 7:53 AM CDT [facility] HPV DNA HIGH RISK NEGATIVE NEGATIVE 04/13/2025 2:46 PM CDT [facility] Comment:SEE CYTOLOGY REPORT 04/01/2025 12:0 0 PM CDT Elise Pantoja CLIENT SERVICE CONSULTANT PATHOLOGY/CYTOLOGY ORDERABLES Final Result [facility] [address] [place] [place] [address], * CT CHEST+ABD+PEL WO CON (09/16/2023 2:00 AM COVER MARKER) Anatomical Region Laterality Modality Chest, Abdomen, Pelvis Computed Tomography 09/16/2023 2:05 AM COVER MARKER Impressions 09/16/2023 2:12 AM COVER MARKER IMPRESSION: Increased stool throughout the colon and rectum. Small amount of gas within the right femoral vein and a tributary vein, likely iatrogenic. Referred By: Interpreted By: Josafat Bansal MD, 09/16/2023 2:05 AM Narrative 09/16/2023 2:[address] of the chest, abdomen and pelvis [...] * (ABNORMAL) HEPATITIS PANEL,ACUTE (08/10/2022 5:35 PM COVER MARKER) HEPATITIS B SURFACE AG NON-REACTIVE NON-REACT MICHELLE 08/11/2022 12:43 AM COVER MARKER [facility] Comment:HBsAg NOT DETECTED. HEP B CORE IGM NON-REACTIVE NON-REACT MICHELLE 08/11/2022 12:43 AM COVER MARKER [facility] Comment: IgM ANTI HBc NOT DETECTED. DOES NOT EXCLUDE THE POSSIBILITY OF EXPOSURE TO OR INFECTION WITH HBV. NO RETEST REQUIRED. HIGH DOSES OF BIOTIN MAY INTERFERE WITH THIS TEST RESULT. CORRELATION TO CLINICAL HISTORY AND PRESENTATION RECOMMENDED. HAV IGM NON-REACTIVE NON-REACT MICHELLE 08/11/2022 12:43 AM COVER MARKER [facility] Comment: IgM ANTI HAV NOT DETECTED. DOES NOT EXCLUDE THE POSSIBILITY OF EXPOSURE TO OR INFECTION WITH HAV. LEVELS OF IgM ANTI HAV MAY BE BELOW THE CUTOFF IN EARLY INFECTION. HEPATITIS C AB EQUIVOCAL RESULT(A) NON-REACT MICHELLE 08/11/2022 12:43 AM COVER MARKER [facility] Comment: Repeatedly inconclusive result for Hepatitis C Antibody. Repeat testing on a new specimen from the patient or additional testing by PCR for HCV virus is recommended. 08/10/2022 5:35 PM COVER MARKER us Max Ryan MD LABORATORY Fi nal Result [facility] [address] [place] [address], [id number] from Last 3 Months or Most Recently Relevant to Health Maintenance Additional Health Concerns Infection Onset Date Last Indicated MRSA 07/13/2023 09/05/2024 Insurance MICHAEL LOGAN [id number] Advance Directives Documents on File Type Date Recorded Patient Case Briefer Expl anation Advance Directives and Living Will [...] Sandeep Jackson Health Care Agent Care Teams Integrated Program Teacher Relationship Specialty Start Date End Date Ronaldo Weston DO [address] [place] [address] PCP - General FAMILY PRACTICE 09/10/24 Pallavi Rahman MD [address] [place] [address] Consulting Physician CARDIOVASCULAR DISEASE 08/25/22 Josephine Aguilar MD [address] [place] [phone] Physician FAMILY PRACTICE 03/14/23 Eric Gauthier MD [address] [place] [phone] Consulting Physician CLINICAL CARDIAC ELECTROPHYSIOLOGY 06/18/23
--- OUTSIDE RECORDS SUMMARY | 2025-07-21 14:23 | XMS_ITS | Clinical Summary ---
Author Organization [facility] Address [address] [place] [address] Care Team Providers Care Gravity Prospecting Operator Name Role Phone Akshat Magana MD Primary Care Provider [phone] Allergies No known active allergies Medications levothyroxine [...] (11/15/2020): Added automatically from request for surgery [id number] Encounter for screening colonoscopy 11/15/2020 Overview (11/15/2020): Added automatically from request for surgery [id number] Right upper quadrant abdominal pain 06/22/2015 Cardiac disease 03/16/2014 Rectal mass 03/16/2014 Screening for malignant neoplasm of cervix 03/16 Dysuria 03/16/2014 Lumbago 06/17/2012 Polyp of cervix 03/04/2012 Dysfunctional uterine bleeding 03/04/2012 Hypothyroidism Bipolar disorder Immunizations Immunization Administration Dates Next Due Influenza, Quadrivalent, Spl it, Preservative Free, Intramuscular 06/18/2023,11/10/2021 Surgical History Surgery Date Site/Laterality Comments STOMACH SURGERY Gastric Surgery - (Added by TW Conv) OR DELIVERY ONLY Section - X3 1988/1989/2004 (Added by TW Conv) ECTOPIC SURGERY Laparoscopy With Excision Of Ectopic - (Added by TW Conv) OR CHOLECYSTECTOMY Cholecystectomy - (Added by TW Conv) OR LIG/TRNSXJ FLP TUBE ABDL/ VAG APPR UNI/BI Tubal Ligation - (Added by TW Conv) OR HYSTEROSCOPY ENDOMETRIAL ABLATION Hysteroscopy With Endometrial Ablation [...] on file Legal Sex Female 5:42 PM MICROBIOLOGY COORDINATOR Gender Identity Not on file Sexual Orientation [...] Screening 11/05/2022 11/05/2021 Covid-19 Vaccine (3 - 2024-2 6 season) 2025 10/29/2020, 10/08/2020 Influenza Vaccine (#1) 2025 , [...] Female Attending MD: Josafat Kumar M.D. Room: [facility] ENDOSCOPY ROOM 2 Note Status: Finalized [...] scope was passed under direct vision. TheColonoscope [id number] was introduced through the anus and advanced [...] malignant neoplasm of colon CPT copyright 2019 [employer]. All rights reserved. The codes documented in this report are preliminary and upon materials handling coordinator reviewmay be revised to meet current compliance requirements. Recognized by the [employer] for promoting quality in endoscopy us Josafat Kumar MD ENDOSCOPY PROCEDURES Final Re sult * Screening Mammogram W Juan Carlos (03/16/2014 1:07 PM CDT) Anatomical Region Laterality Modality Breast N/A Mammography 03/16/2014 1:07 PM CDT Narrative 03/18/2014 10:18 AM CDT LENORA VALLE M.D. FINAL REPORT ACC# Date Time Exam [id number] Mar 16, 2014 13:07:00 [facility] [id number] Bilateral screen w juan carlos Technologist(s): Blanche Nazario; ; EXAMINATION: Mammogram Technique: Bilateral Bilateral Full-Field Digital Screening Mammogram and Digital Breast Tomosynthesis were performed. Views obtained: bilateral craniocaudal and bilateral mediolateral oblique. Computer Aided Detection of the 2D images was performed with Pulse 1.3 version 9.3. Mammogram Findings: The present examination has been compared to a prior imaging study performed at [facility] on 03/04/2012. There are scattered [...] M.D. FINAL REPORT ACC# Date Time Exam [id number] Mar 16, 2014 13:07:00 [facility] [id number] Bilateral screen w juan carlos Technologist(s): Blanche Nazario; ; EXAMINATION: Mammogram Technique: Bilateral Bilateral Full-Field Digital Screening Mammogram and Digital Breast Tomosynthesis were performed. Views obtained: bilateral craniocaudal and bilateral mediolateral oblique. Computer AidedDetection of the 2D images was performed with Pulse 1.3 version 9.3. Mammogram Findings: The present examination has been compared to a prior imaging study performed at [facility] on 03/04/2012. There are scattered fibroglandular densities. There is no suspicious abnormality in either breast. IMPRESSION: Annual screening mammography is recommended. OVERALL FINAL ASSESSMENT: BI-RADS CATEGORY 1: Negative. Requested By: Darlnee Ace M.D. Dictated By: LENORA VALLE M.D. on Mar 18 2014 10:18A This document has been electronically signed by: LENORA VALLE M.D. on Mar 18 2014 10:17A us Historical Provider MD MCG[facility] MAMMO PROCEDURES Karlie l Result from Last 3 Months or Most Recently Relevant to Health Maintenance Insurance MEDICARE [facility] CHOICE PLUS [facility] HMO/PPO Address: [address] [address] [place] [address] [facility] OPEN ACCESS Advance Directives For more information, please contact: [phone] * Full Code (Latest Code Status on File) Date Activated Date Inactivated Comments 06/14/2023 1:07 PM 06/18/2023 3:43 PM * Full Code Date Activated Date Inactivated Comments 11/05/2021 1:49 PM 11/10/2021 12:54 PM * Full Code Date Activated Date Inactivated Comments 08/05/2021 7:39 AM 08/05/2021 1:53 PM * Full Code Date Activated Date Inactivated Comments 12/24/2020 7:43 AM 12/24/2020 3:06 PM Care Teams Gravity Prospecting Operator Relationship Specialty Start Date End Date Akshat Magana MD [address] [place] [id number] PCP - General Family Medicine 06/12/23
[2025-07-21 14:26] LABS: Iron 41 ug/dL (37-170)
[2025-07-21 14:28] LABS: Alanine Aminotransferase 33 U/L (6-35); Albumin Level 4.5 g/dL (3.5-5.1); Alkaline Phosphatase 87 U/L (38-126); Anion Gap 12 mmol/L (4-12); Aspartate Amino Transferase 29 U/L (14-36); Bilirubin,Total 0.2 mg/dL (0.2-1.3); Blood Urea Nitrogen 10 mg/dL (7-17); Calcium 9.4 mg/dL (8.4-10.2); Carbon Dioxide 23 mmol/L (22-30); Chloride 94 mmol/L (98-107); Estimated Glomerular Filt Rate 53; Glucose 85 mg/dL (65-110); Osmolality Calculated 266 mOsm/kg (285-295); Potassium 4.3 mmol/L (3.4-5.0); Sodium 129 mmol/L (137-145); Total Protein 6.7 g/dL (6.3-8.2)
[2025-07-21 14:36] LABS: Percent Iron Saturation 11 % (20-50)
[2025-07-21 15:00] LABS: Thyroid Stimulating Hormone Reflex 14.600 uIU/mL (0.465-4.68)
[2025-07-21 15:03] LABS: Ferritin 7.77 ng/mL (11.1-264)
[2025-07-21 15:32] LABS: Free T4 Free Thyroxine Reflex 1.44 ng/dL (0.78-2.19)
[2025-07-21 15:34] LABS: Vitamin B12 925.0 pg/mL (239-931)
== END 2025-07-21 13:25 | disposition home or self-care (01) ==
LOC: CHSLAB 13:25
PROVIDERS: PCP Family Medicine; Visit Provider Family Medicine
DX: E03.9 Hypothyroidism, unspecified (principal); E87.1 Hypo-osmolality and hyponatremia; D64.9 Anemia, unspecified; E53.8 Deficiency of other specified B group vitamins; D50.9 Iron deficiency anemia, unspecified
CPT/HCPCS: 36415; 80053; 82607; 82728; 82746; 83540; 83550; 84439; 84443; 85025

== ENCOUNTER 2025-08-06 13:49 | Outpatient (CLI) | payer MEDICARE, SELFPAY ==
[2025-08-06 14:02] LABS: Add Urine Microscopic? NO; Appearance Urine Clear (Clear); Glucose Urine UA Negative (Negative); Leukocyte Esterase Ur Negative LEU/UL (Negative); Nitrate Urine Negative (Negative); Specific Grav Ur <= 1.005 (1.010-1.020)
--- OUTSIDE RECORDS SUMMARY | 2025-08-06 14:48 | XMS_ITS | Encounter Summary ---
Author Organization [facility] Address [address] [place] [address] Care Team Providers Care Art Objects Salesperson Name Role Phone Cuate St MD Primary Care Provider [phone] Akshat Magana MD Primary Care Provider [phone] Encounter Details Date Type Department Care Team (Late st Contact Info) Description 11/07/2021 Documentation [facility] Warm Hand Off Program [address] [place], [place] [phone] Abel Claros Social History Tobacco Use Types [...] on file Legal Sex Female 5:42 PM UNHAIRING INSPECTOR Gender Identity Not on file Sexual Orientation Not on file documented as of this encounter Plan of Treatment Not on file documented as of this encounter Visit Diagnoses Not on filedocumented in this encounter Care Teams Art Objects Salesperson Relationship Specialty Start Date End Date Cuate St MD PCP - General 09/11/06 06/11/23 Akshat Magana MD [address] [place] [phone] PCP - General Family Medicine 06/12/23 documented as of this encounter
--- OUTSIDE RECORDS SUMMARY | 2025-08-06 14:48 | XMS_ITS | Clinical Summary ---
Author Organization [facility] Address [address] [place] [address] Phone Care Team Providers Care Relations Mgr Name Role Phone Unavailable Primary Care Provider [...] Insurance MEDICARE C BCBS PPO MICHAEL LOGAN [id number]
--- OUTSIDE RECORDS SUMMARY | 2025-08-06 14:48 | XMS_ITS | Clinical Summary ---
Author Organization [facility] Address [address] [facility] [address] [facility] [place] [address] Care Team Providers Care Associate Account Manager Name Role Phone Cuate St MD Primary Care Provider [phone] Source Comments [facility],non-owned Affiliates and Associated Physician Practices is amultiple site organization consisting of ambulatory clinics and hospital sitesin [place], [place], [place] and [place]. This disclosure is being madepursuant to the Care Everywhere program and may not contain all information available regarding this patient. Last updated 18.[facility] Allergies Active Allergy Reactions Criticality Noted Date Comments Bupropion Unknown,Psychiatric, Seizures High 08/25/2022 delirium delirium Carbamazepine Other,Psychiatric Medium 08/25/2022 Described as delirrium delirium delirium Ciprofloxacin Rash Medium 07/27/2022 [place] Zhang (Diagnostic) Other 09/17/2023 Described as allergy [...] and heating? Patient unable to answer 10/11/2023 [facility] [place] of Occupat ional Health - Occupational Stress [...] place to sleep or slept in a group home (including now)? Patient unable to answer 10/11/2023 Comments No Sex and Gender Information Value Date Recorded Sex Assigned at Not on file Legal Sex Female 1:11 AM CDT Gender Identity Not on file Sexual Orientation Not on file Last Filed Vital Signs Vital Sign Reading Time Taken Comments Blood Pressure 140/75 10/23/2023 5:00 PM CARD WRITER HAND Pulse 85 10/23/2023 5:00 PM CARD WRITER HAND Temperature 37.4 C (99.3 F) 10/23/2023 12:00 PM CARD WRITER HAND Respiratory Rate 18 10/23/2023 5:05 PM CARD WRITER HAND Oxygen Saturation 98% 10/23/2023 5:05 PM CARD WRITER HAND Inhaled Oxygen Concentration 33% 10/23/2023 5 :05 PM CARD WRITER HAND Weight 107 kg (235 lb 14.3 oz) 10/18/2023 4:00 A M CARD WRITER HAND Height 172.7 cm (5' 8) 10/10/2023 7:45 PM CARD WRITER HAND Body Mass Index 35.87 10/10/2023 7:45 PM CARD WRITER HAND Plan of Treatment Health Maintenance Due [...] 6 season) 2025 INFLUENZA VACCINE (#1) 2025 3, 11/10/2021 COLON MONITORING 12/24/2030 12/24/2020 COLONOSCOPY - [...] 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 Source: [facility] [place]Note 2]. Sputum - 09/26/22, 10/07/23 07/13/2023 MRSA 10/07/2023 10/07/2023 Insurance [facility] MEDICARE ADV HMO & PPO Advance [...] 5:47 AM 11/24/2020 11:07 AM Care Teams Associate Account Manager Relationship Specialty Start Date End Date Cuate St MD [address] [place] [id number] PCP - General Internal Medicine 08/20/20
--- OUTSIDE RECORDS SUMMARY | 2025-08-06 14:48 | XMS_ITS | Patient Health Record ---
Author Organization [facility] [employer] Address [address] [place] [address] Care Team Providers Care Learning And Development Analyst Name Role Phone Hedy Collazo Unavailable [phone] Reason For Referral No Information Medications Medication SIG (Take, Route, Frequency, Duration) Notes Start Date End Date Status LACOSAMIDE 200 MG TABLET *Reorder from [employer]_ [employer] for eRx and Interaction Alerts* 05/22/2023 Active [...] l Medicare [address] [place] [address] [id number] TIMO JIMENEZ Self - patient is the insured
--- OUTSIDE RECORDS SUMMARY | 2025-08-06 14:48 | XMS_ITS | Clinical Summary ---
Author Organization [facility] Address [address] [place] [address] Care Team Providers Care Traffic Coordinator Name Role Phone Akshat Magana MD Primary Care Provider [phone] Allergies No known active allergies Medications levothyroxine [...] (11/15/2020): Added automatically from request for surgery [id number] Encounter for screening colonoscopy 11/15/2020 Overview (11/15/2020): Added automatically from request for surgery [id number] Right upper quadrant abdominal pain 06/22/2015 Cardiac disease 03/16/2014 Rectal mass 03/16/2014 Screening for malignant neoplasm of cervix 03/16 Dysuria 03/16/2014 Lumbago 06/17/2012 Polyp of cervix 03/04/2012 Dysfunctional uterine bleeding 03/04/2012 Hypothyroidism Bipolar disorder Immunizations Immunization Administration Dates Next Due Influenza, Quadrivalent, Spl it, Preservative Free, Intramuscular 06/18/2023,11/10/2021 Surgical History Surgery Date Site/Laterality Comments STOMACH SURGERY Gastric Surgery - (Added by TW Conv) [place] DELIVERY ONLY Section - X3 1988/1989/2004 (Added by TW Conv) ECTOPIC SURGERY Laparoscopy With Excision Of Ectopic - (Added by TW Conv) [place] CHOLECYSTECTOMY Cholecystectomy - (Added by TW Conv) [place] LIG/TRNSXJ FLP TUBE ABDL/ VAG APPR UNI/BI Tubal Ligation - (Added by TW Conv) [place] HYSTEROSCOPY ENDOMETRIAL ABLATION Hysteroscopy With Endometrial Ablation [...] on file Legal Sex Female 5:42 PM RELATIONS SPECIALIST Gender Identity Not on file Sexual Orientation [...] MD - 12/24/2020 7:44 AM CDT [facility] Patient Name: Jolanta Montes Procedure Date: 12/24/2020 7:44 AM Date of : 1970 Admit Type: Outpatient Age: 50 Gender: Female Attending MD: Josafat Kumar M.D. Room: [facility] ENDOSCOPY ROOM 2 Note Status: Finalized [...] scope was passed under direct vision. TheColonoscope [id number] was introduced through the anus and advanced [...] malignant neoplasm of colon CPT copyright 2019 [employer]. All rights reserved. The codes documented in this report are preliminary and upon sales merchandise associate reviewmay be revised to meet current compliance requirements. Recognized by the [employer] for promoting quality in endoscopy us Josafat Kumar MD ENDOSCOPY PROCEDURES Final Re sult * Screening Mammogram W Juan Carlos (03/16/2014 1:07 PM CDT) Anatomical Region Laterality Modality Breast N/A Mammography 03/16/2014 1:07 PM CDT Narrative 03/18/2014 10:18 AM CDT LENORA VALLE M.D. FINAL REPORT ACC# Date Time Exam [id number] Mar 16, 2014 13:07:00 [facility] [id number] Bilateral screen w juan carlos Technologist(s): Blanche Nazario; ; EXAMINATION: Mammogram Technique: Bilateral Bilateral Full-Field Digital Screening Mammogram and Digital Breast Tomosynthesis were performed. Views obtained: bilateral craniocaudal and bilateral mediolateral oblique. Computer Aided Detection of the 2D images was performed with Nasza-klasa.pl 1.3 version 9.3. Mammogram Findings: The present examination has been compared to a prior imaging study performed at [facility] on 03/04/2012. There are [...] M.D. FINAL REPORT ACC# Date Time Exam [id number] Mar 16, 2014 13:07:00 [facility] [id number] Bilateral screen w juan carlos Technologist(s): Blanche Nazario; ; EXAMINATION: Mammogram Technique: Bilateral Bilateral Full-Field Digital Screening Mammogram and Digital Breast Tomosynthesis were performed. Views obtained: bilateral craniocaudal and bilateral mediolateral oblique. Computer AidedDetection of the 2D images was performed with Nasza-klasa.pl 1.3 version 9.3. Mammogram Findings: The present examination has been compared to a prior imaging study performed at [facility] on 03/04/2012. There are [...] Recently Relevant to Health Maintenance Insurance MEDICARE [facility] CHOICE PLUS FOR[facility]LY [facility] OPEN ACCESS Advance Directives For more information, please contact: [phone] * Full Code (Latest Code Status on File) Date Activated Date Inactivated Comments 06/14/2023 1:07 PM 06/18/2023 3:43 PM * Full Code Date Activated Date Inactivated Comments 11/05/2021 1:49 PM 11/10/2021 12:54 PM * Full Code Date Activated Date Inactivated Comments 08/05/2021 7:39 AM 08/05/2021 1:53 PM * Full Code Date Activated Date Inactivated Comments 12/24/2020 7:43 AM 12/24/2020 3:06 PM Care Teams Traffic Coordinator Relationship Specialty Start Date End Date Akshat Magana MD [address] [place] [address] PCP - General Family Medicine 06/12/23
== END 2025-08-06 13:50 | disposition home or self-care (01) ==
LOC: CHSLAB 13:50
PROVIDERS: PCP Family Medicine; Visit Provider Nurse Practitioner Family
DX: R30.0 Dysuria (principal)
CPT/HCPCS: 81003

== ENCOUNTER 2025-08-17 09:52 | Outpatient (CLI) | payer MEDICARE, SELFPAY ==
[2025-08-17 10:02] LABS: Add Urine Microscopic? YES; Appearance Urine Clear (Clear); Glucose Urine UA Negative (Negative); Leukocyte Esterase Ur 1+ LEU/UL (Negative); Nitrate Urine Negative (Negative); Specific Grav Ur <= 1.005 (1.010-1.020)
--- OUTSIDE RECORDS SUMMARY | 2025-08-17 10:17 | XMS_ITS | Clinical Summary ---
Author Organization [facility] Address [address] [place] [place] [address] Care Team Providers Care Wire Spinner Name Role Phone Cutae St MD Primary Care Provider [phone] Source Comments [facility],non-owned Affiliates and Associated Physician Practices is amultiple site organization consisting of ambulatory clinics and hospital sitesin [place], [place], [place] and [place]. This disclosure is being madepursuant to the Care Everywhere program and may not contain all information available regarding this patient. Last updated 18.[facility] Allergies Active Allergy Reactions Criticality Noted Date Comments Bupropion Unknown,Psychiatric, Seizures High 08/25/2022 delirium delirium Carbamazepine Other,Psychiatric Medium 08/25/2022 Described as delirrium delirium delirium Ciprofloxacin Rash Medium 07/27/2022 [place] Zhang (Diagnostic) Other 09/17/2023 Described as allergy [...] and heating? Patient unable to answer 10/11/2023 [facility] [place] of Occupat ional Health - Occupational Stress [...] place to sleep or slept in a usp (including now)? Patient unable to answer 10/11/2023 Comments No Sex and Gender Information Value Date Recorded Sex Assigned at Not on file Legal Sex Female 1:11 AM CDT Gender Identity Not on file Sexual Orientation Not on file Last Filed Vital Signs Vital Sign Reading Time Taken Comments Blood Pressure 140/75 10/23/2023 5:00 PM FOUNTAIN MANAGER Pulse 85 10/23/2023 5:00 PM FOUNTAIN MANAGER Temperature 37.4 C (99.3 F) 10/23/2023 12:00 PM FOUNTAIN MANAGER Respiratory Rate 18 10/23/2023 5:05 PM FOUNTAIN MANAGER Oxygen Saturation 98% 10/23/2023 5:05 PM FOUNTAIN MANAGER Inhaled Oxygen Concentration 33% 10/23/2023 5 :05 PM FOUNTAIN MANAGER Weight 107 kg (235 lb 14.3 oz) 10/18/2023 4:00 A M FOUNTAIN MANAGER Height 172.7 cm (5' 8) 10/10/2023 7:45 PM FOUNTAIN MANAGER Body Mass Index 35.87 10/10/2023 7:45 PM FOUNTAIN MANAGER Plan of Treatment Health Maintenance Due [...] 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 Source: [facility]. Sputum - 09/26/22, 10/07/23 07/13/2023 MRSA 10/07/2023 10/07/2023 Insurance [facility] MEDICARE ADV HMO & PPO Advance Directives [...] 5:47 AM 11/24/2020 11:07 AM Care Teams Wire Spinner Relationship Specialty Start Date End Date Cuate St MD [address] [place] [id number] PCP - General Internal Medicine 08/20/20
--- OUTSIDE RECORDS SUMMARY | 2025-08-17 10:17 | XMS_ITS | Clinical Summary ---
Author Organization [facility] Address [facility] [place] [address] Care Team Providers Care Nutrition Specialist Name Role Phone Pallavi Rahman MD Unavailable Josephine Aguilar MD Unavailable [phone] Eric Gauthier MD Unavailable [phone] Ronaldo Weston DO Primary Care Provider [phone] Allergies Active Allergy Reactions Criticality Noted Date Comments Bupropion Seizure,Other (see comment) 08/25/2022 delirium Carbamazepine Other (see comment) 08/25/2022 delirium Ciprofloxacin Rash Medium 07/27/2022 Clarithromycin Unknown 08/15/2018 [place] Zhang (Diagnostic) Unknown 01/28/2016 Tape Other (see [...] Date Smoking Tobacco: Every Day Cigarettes 1.5 43 Started: 2024; Last attempted to quit: 2023 [...] materials from doctor or pharmacy Never 07/25/2024 [facility] Utilities Answer Date Recorded In the past 12 months has th e [employer], oil, or water [employer] threatened to shut off services in your [...] in a prison (including now)? No 07/20/2023 Housing Stability Vital Sign Answer Mehul e Recorded In the last 12 months, was t here a time when you were not able to pay the mortgage or rent on time? No 05/14/2024 In the past 12 months, how m any times have you moved where you were living? 0 05/14/2024 At any time in the past 12 m [facility], were you homeless or living in a prison (including now)? No 05/14/2024 Comments No Sex and Gender Information Value Date Recorded Sex Assigned at Female 09/03/2024 11:46 AM FRUIT OR NUT FARMWORKER Legal Sex Female 2:43 AM CDT Gender Identity Not on file Sexual Orientation Not on file Last Filed Vital Signs Vital Sign Reading Time Taken Comments Blood Pressure 125/67 09/10/2024 9:57 AM FRUIT OR NUT FARMWORKER Pulse 85 09/10/2024 9:57 AM FRUIT OR NUT FARMWORKER Temperature 36.7 C (98 F) 07/18/2024 10:32 AM FRUIT OR NUT FARMWORKER Respiratory Rate 16 09/10/2024 9:57 AM FRUIT OR NUT FARMWORKER Oxygen Saturation 98% 09/10/2024 9:57 AM FRUIT OR NUT FARMWORKER Inhaled Oxygen Concentration - - Weight 99.2 kg (218 lb 9.6 oz) 09/10/2024 9:57 A M FRUIT OR NUT FARMWORKER Height 175.3 cm (5' 9) 09/10/2024 9:57 AM FRUIT OR NUT FARMWORKER Body Mass Index 32.28 09/10/2024 9:57 AM FRUIT OR NUT FARMWORKER Plan of Treatment Health Maintenance Due Date Last Done Comments Cervical Cancer Screening Pap Smear (Age 30 to 64) Every 3 Years 1970 Annual Physical 1971 Hepatitis B Vaccines (1 of 3 - 19+ 3-dose series) 1987 Pneumococcal Vaccine: 50+ Years (1 of 2 - PCV) 1987 Mammogram Screening 2008 Zoster Vaccines (2 of 2) 12/22/2018 10/27/2018 PHQ-2 (Physician Jesse) 08/20/2024 Lung Cancer Screening 09/25/2024 09/25/2023, 024 COVID-19 Vaccine ( - season) 2025 10/29/2020, 10/08/2020 Influenza Adult (#1) 2025 06/18/2023, 05/29/2022, 11/10/2021, Additional history exists DTaP, Tdap and Td Vaccines (3 - Td or Tdap) 04/11/2029 04/11/2019, 01/16/2013 Cervical Cancer Screening Pap with HPV Testing (Age 30 to 64) Every 5 Years 04/01/2030 04/01/2025 Cervical Cancer Screening with HPV 04/01/2030 Colorectal Cancer Screening Colonoscopy (10 Years) 12/24/2030 12/24/2020 Hepatitis C Completed 06/19/2023, 08/10/2022 Hepatitis A [...] CHEST+ABD+PEL WO CON STAT 09/16/2023 2:00 AM FRUIT OR NUT FARMWORKER HEPATITIS PANEL,ACUTE Routine 08/10/2022 5:35 PM FRUIT OR NUT FARMWORKER from Last 3 Months or Most Recently Relevant to Health Maintenance Results * HUMAN PAPILLOMAVIRUS, HIGH-RISK TYPES (04/01/2025 12:00 PM CDT) SPEC DESCRIPTION CERVIX 04/08/20 7:53 AM CDT [facility] HPV DNA HIGH RISK NEGATIVE NEGATIVE 04/13/2025 2:46 PM CDT [facility] Comment:SEE CYTOLOGY REPORT 04/01/2025 12:0 0 PM CDT Elise Pantoja ROD CUP FILLER PATHOLOGY/CYTOLOGY ORDERABLES Final Result [facility] [address] [place] [address], * CT CHEST+ABD+PEL WO CON (09/16/2023 2:00 AM FRUIT OR NUT FARMWORKER) Anatomical Region Laterality Modality Chest, Abdomen, Pelvis Computed Tomography 09/16/2023 2:05 AM FRUIT OR NUT FARMWORKER Impressions 09/16/2023 2:12 AM FRUIT OR NUT FARMWORKER IMPRESSION: Increased stool throughout the colon and rectum. Small amount of gas within the right femoral vein and a tributary vein, likely iatrogenic. Referred By: Interpreted By: Josafat Bansal MD, 09/16/2023 2:05 AM Narrative 09/16/2023 2:12 AM FRUIT OR NUT FARMWORKER CT of the chest, abdomen and pelvis [...] * (ABNORMAL) HEPATITIS PANEL,ACUTE (08/10/2022 5:35 PM FRUIT OR NUT FARMWORKER) HEPATITIS B SURFACE AG NON-REACTIVE NON-REACT MICHELLE 08/11/2022 12:43 AM FRUIT OR NUT FARMWORKER [facility] Comment:HBsAg NOT DETECTED. HEP B CORE IGM NON-REACTIVE NON-REACT MICHELLE 08/11/2022 12:43 AM FRUIT OR NUT FARMWORKER [facility] Comment: IgM ANTI HBc NOT DETECTED. DOES NOT EXCLUDE THE POSSIBILITY OF EXPOSURE TO OR INFECTION WITH HBV. NO RETEST REQUIRED. HIGH DOSES OF BIOTIN MAY INTERFERE WITH THIS TEST RESULT. CORRELATION TO CLINICAL HISTORY AND PRESENTATION RECOMMENDED. HAV IGM NON-REACTIVE NON-REACT MICHELLE 08/11/2022 12:43 AM FRUIT OR NUT FARMWORKER [facility] Comment: IgM ANTI HAV NOT DETECTED. DOES NOT EXCLUDE THE POSSIBILITY OF EXPOSURE TO OR INFECTION WITH HAV. LEVELS OF IgM ANTI HAV MAY BE BELOW THE CUTOFF IN EARLY INFECTION. HEPATITIS C AB EQUIVOCAL RESULT(A) NON-REACT MICHELLE 08/11/2022 12:43 AM FRUIT OR NUT FARMWORKER [facility] Comment: Repeatedly inconclusive result for Hepatitis C Antibody. Repeat testing on a new specimen from the patient or additional testing by PCR for HCV virus is recommended. 08/10/2022 5:35 PM FRUIT OR NUT FARMWORKER Max Ryan MD LABORATORY Fi nal Result [facility] [address] [place] [address], [id number] from Last 3 Months or Most Recently Relevant to Health Maintenance Additional Health Concerns Infection Onset Date Last Indicated MRSA 07/13/2023 09/05/2024 Insurance Advance Directives Documents on File Type Date Recorded Patient Mandarin Tutor Expl anation Advance Directives and Living Will [...] Agents on File Name Relationship Healthcare Agent [facility] p Communication Sandeep [facility] Care Agent Care Teams Nutrition Specialist Relationship Specialty Start Date End Date Ronaldo Weston DO [address] [place] [address] PCP - General FAMILY PRACTICE 09/10/24 Pallavi Rahman MD [address] [place], [place] [address] Consulting Physician CARDIOVASCULAR DISEASE 08/25/22 Josephine Aguilar MD [address] [place], [place] [address] Physician FAMILY PRACTICE 03/14/23 Eric Gauthier MD [address] [place] [address] Consulting Physician CLINICAL CARDIAC ELECTROPHYSIOLOGY 06/18/23
--- OUTSIDE RECORDS SUMMARY | 2025-08-17 10:17 | XMS_ITS | Encounter Summary ---
Author Organization [facility] Address [facility] [place] [address] Care Team Providers Care Head Girls Golf Coach Name Role Phone Cuate St MD Primary Care Provider [phone] Pallavi Rahman MD Unavailable Akshat Magana MD Primary Care Provider Josephine Aguilar MD Unavailable [phone] Eric Gauthier MD Unavailable [phone] Josephine Aguilar MD Primary Care Provider + [phone] Demetri Edwarsd MD Unavailable [phone] Ronaldo Weston DO Primary Care Provider [phone] Encounter Details Date Type Department Care Team (Late st Contact Info) Description 09/20/2022 [employer] Message Enc [facility] [address] [phone] [place], [facility] Provider Response Social History Tobacco [...] place to sleep or slept in a longterm (including now)? No 09/20/2022 Comments Unknown Sex and Gender Information Value Date Recorded Sex Assigned at Female 09/03/2024 11:46 AM PHYSICAL OPTICS TEACHER Legal Sex Female 2:43 AM CDT Gender Identity Not on file Sexual Orientation Not on file COVID-19 Exposure Response Date Recorded In the last 10 days, have yo u been in contact with someone who was confirmed or suspected to have Coronavirus/COVID-19? No / Unsure 09/04/2022 2:08 AM PHYSICAL OPTICS TEACHER documented as of this encounter Functional Status * RETIRED Are you deaf or do you have serious difficulty hearing Answer Date of Assessment Author Status No 09/04/2022 2:00 AM PHYSICAL OPTICS TEACHER Activ e * RETIRED Are you blind or do you have serious difficulty seeing, even when wearing glasses? Answer Date of Assessment Author Status No 09/04/2022 2:00 AM PHYSICAL OPTICS TEACHER Activ e * Do you have serious difficulty walking or climbing stairs? Answer Date of Assessment Author Status No 09/04/2022 2:00 AM PHYSICAL OPTICS TEACHER Lluvia Daugherty RN Active * Do you have difficulty dressing or bathing? Answer Date of Assessment Author Status No 09/04/2022 2:00 AM Lluvia David RN Active * Because of a physical, [...] documented as of this encounter Care Teams Head Girls Golf Coach Relationship Specialty Start Date End Date Cuate St MD [address] [place] [phone] PCP - General INTERNAL MEDICINE 05/02/19 12/13/22 Akshat Magana MD [address] [place] [phone] PCP - General FAMILY PRACTICE 12/14/22 07/07/23 Josephine Aguilar MD [address] [place] [phone] PCP - General FAMILY PRACTICE 07/08/23 09/09/24 Ronaldo Weston DO [address] [place] [address] PCP - General FAMILY PRACTICE 09/10/24 Pallavi Rahman MD [address] [place] [address] Consulting Physician CARDIOVASCULAR DISEASE 08/25/22 Josephine Aguilar MD [address] [place] [phone] Physician FAMILY PRACTICE 03/14/23 Eric Gauthier MD [address] [place] [address] Consulting Physician CLINICAL CARDIAC ELECTROPHYSIOLOGY 06/18/23 Demetri Edwards MD [address] [place] [address] [place] [address] Consulting Physician SURGERY 05/07/24 05/07/25 documented as of this encounter
--- OUTSIDE RECORDS SUMMARY | 2025-08-17 10:17 | XMS_ITS | Encounter Summary ---
Author Organization [facility] Address [facility] [place] [address] Care Team Providers Care Director Of Events Name Role Phone Pallavi Rahman MD Unavailable Josephine Aguilar MD Unavailable [phone] Eric Gauthier MD Unavailable [phone] Josephine Aguilar MD Primary Care Provider + [phone] Demetri Edwards MD Unavailable [phone] Ronaldo Weston DO Primary Care Provider [phone] Encounter Details Date Type Department Care Team (Late st Contact Info) Description 01/29/2024 Community Orders [facility] EPICCARE LINK Danie Rodriguez MD [address] [place] [address] Social History Tobacco Use Types Packs/Day Years Used Date Smoking Tobacco: Every Day Cigarettes 1.5 42 Smokeless Tobacco: Never Alcohol Use Standard Drinks/Week Comments Not Currently 16.7 (1 standard drink = 0.6 oz pure alcohol) hx of alcoholism [facility] Utilities Answer Date Recorded In the past 12 months has th e [employer], gas, oil, or water [employer] threatened to shut off services in your [...] slept in a correction (including now)? No 07/20/2023 Comments No Sex [...] Author Status No 07/20/2023 6:12 PM Aixa Thompson, R Amber Active * Are you blind or do you have serious difficulty seeing, even when wearing glasses? Answer Date of Assessment Author Status No 07/20/2023 6:12 PM Aixa Thompson R Amber Active * Do you have serious difficulty walking or climbing stairs? Answer Date of Assessment Author Status No 07/20/2023 6:12 PM Aixa Thompson R Amber Active * Do you have difficulty dressing or bathing? Answer Date of Assessment Author Status No 07/20/2023 6:12 PM MOLD DUMPER Aixa Chacon R Amber Active * Because of a physical, mental, or emotional condition, do you have difficulty doing errands alone such as visiting a doctor's office or shopping? Answer Date of Assessment Author Status No 07/20/2023 6:12 PM Aixa Thompson R Amber Active documented as of this encounter Mental Status * Because of a physical, mental, or emotional condition, do you have serious difficulty concentrating, remembering, or making decisions? Answer Entry Date Author Status No 07/20/2023 6:12 PM Aixa Thompson, R N Active documented in this encounter [...] of this encounter Care Teams Director Of Events Relationship Specialty Start Date End Date Josephine Aguilar MD [address] [place] [address] PCP - General FAMILY PRACTICE 07/08/23 09/09/24 Ronaldo Weston DO [address] [place] [address] PCP - General FAMILY PRACTICE 09/10/24 Pallavi Rahman MD [address] [place] [address] Consulting Physician CARDIOVASCULAR DISEASE 08/25/22 Josephine Aguilar MD [address] [place] [address] Physician FAMILY PRACTICE 03/14/23 Eric Gauthier MD [address] [place] [address] Consulting Physician CLINICAL CARDIAC ELECTROPHYSIOLOGY 06/18/23 Demetri Edwards MD [facility] [place] [address] Consulting Physician SURGERY 05/07/24 05/07/25 documented as of this encounter
--- OUTSIDE RECORDS SUMMARY | 2025-08-17 10:17 | XMS_ITS | Clinical Summary ---
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 Center Patient Name: Jolanta Montes Procedure Date: 12/24/2020 7:44 AM Date of : 1970 Admit Type: Outpatient Age: 50 Gender: Female Attending MD: Josafat Kumar M.D. Room: [facility] ENDOSCOPY ROOM 2 Note Status: Finalized [...] scope was passed under direct vision. TheColonoscope [id number] was introduced through the anus and advanced [...] malignant neoplasm of colon CPT copyright 2019 [employer]. All rights reserved. The codes documented in this report are preliminary and upon body line finisher reviewmay be revised to meet current compliance requirements. Recognized by the [employer] for promoting quality in endoscopy us Josafat Kumar MD ENDOSCOPY PROCEDURES Final Re sult * Screening Mammogram W Juan Carlos (03/16/2014 1:07 PM CDT) Anatomical Region Laterality Modality Breast N/A Mammography 03/16/2014 1:07 PM CDT Narrative 03/18/2014 10:18 AM CDT LENORA VALLE M.D. FINAL REPORT ACC# Date Time Exam [id number] Mar 16, 2014 13:07:00 [facility] [id number] Bilateral screen w juan carlos Technologist(s): Blanche Nazario; ; EXAMINATION: Mammogram Technique: Bilateral Bilateral Full-Field Digital Screening Mammogram and Digital Breast Tomosynthesis were performed. Views obtained: bilateral craniocaudal and bilateral mediolateral oblique. Computer Aided Detection of the 2D images was performed with [employer] 1.3 version 9.3. Mammogram Findings: The present examination has been compared to a prior imaging study performed at [facility] on 03/04/2012. There are scattered [...] M.D. FINAL REPORT ACC# Date Time Exam [id number] Mar 16, 2014 13:07:00 [facility] [id number] Bilateral screen w juan carlos Technologist(s): Blanche Nazario; ; EXAMINATION: Mammogram Technique: Bilateral Bilateral Full-Field Digital Screening Mammogram and Digital Breast Tomosynthesis were performed. Views obtained: bilateral craniocaudal and bilateral mediolateral oblique. Computer AidedDetection of the 2D images was performed with [employer] 1.3 version 9.3. Mammogram Findings: The present examination has been compared to a prior imaging study performed at [facility] on 03/04/2012. There are scattered [...] Relevant to Health Maintenance Insurance MEDICARE [facility] Address: [address] [address] [place] [address] [facility]ICE PL[facility] HMO/PPO Address: [address] [address] [place] [address] [facility] OPEN ACCESS Advance Directives For more information, please contact: [phone] * Full Code (Latest Code Status on File) Date Activated Date Inactivated Comments 06/14/2023 1:07 PM 06/18/2023 3:43 PM * Full Code Date Activated Date Inactivated Comments 11/05/2021 1:49 PM 11/10/2021 12:54 PM * Full Code Date Activated Date Inactivated Comments 08/05/2021 7:39 AM 08/05/2021 1:53 PM * Full Code Date Activated Date Inactivated Comments 12/24/2020 7:43 AM 12/24/2020 3:06 PM Care Teams Dumping Machine Operator Relationship Specialty Start Date End Date Akshat Magana MD [address] [place] [id number] PCP - General Family Medicine 06/12/23
--- OUTSIDE RECORDS SUMMARY | 2025-08-17 10:17 | XMS_ITS | Encounter Summary ---
Author Organization [facility] Address [facility] [place] [address] Care Team Providers Care Yeast Distiller Name Role Phone Cuate St MD Primary Care Provider [phone] Pallavi Rahman MD Unavailable Akshat Magana MD Primary Care Provider Josephine Aguilar MD Unavailable [phone] Eric Gauthier MD Unavailable [phone] Josephine Aguilar MD Primary Care Provider + [phone] Demetri Edwards MD Unavailable [phone] Ronaldo Weston DO Primary Care Provider [phone] Encounter Details Date Type Department Care Team (Late st Contact Info) Description 09/24/2022 [facility] [place] [facility] eld [address] [place] [phone] Pallavi Rahman MD [address] [place] [address] Social History Tobacco Use Types [...] place to sleep or slept in a fpc (including now)? No 09/20/2022 Comments Unknown Sex and Gender Information Value Date Recorded Sex Assigned at Female 09/03/2024 11:46 AM DIGITAL STRATEGY MANAGER Legal Sex Female 2:43 AM CDT Gender Identity Not on file Sexual Orientation Not on file COVID-19 Exposure Response Date Recorded In the last 10 days, have yo u been in contact with someone who was confirmed or suspected to have Coronavirus/COVID-19? No / Unsure 09/04/2022 2:08 AM DIGITAL STRATEGY MANAGER documented as of this encounter Functional Status * RETIRED Are you deaf or do you have serious difficulty hearing Answer Date of Assessment Author Status No 09/04/2022 2:00 AM DIGITAL STRATEGY MANAGER Activ e * RETIRED Are you blind or do you have serious difficulty seeing, even when wearing glasses? Answer Date of Assessment Author Status No 09/04/2022 2:00 AM DIGITAL STRATEGY MANAGER Activ e * Do you have serious difficulty walking or climbing stairs? Answer Date of Assessment Author Status No 09/04/2022 2:00 AM DIGITAL STRATEGY MANAGER Lluvia Daugherty RN Active * Do you have difficulty dressing or bathing? Answer Date of Assessment Author Status No 09/04/2022 2:00 AM DIGITAL STRATEGY MANAGER Lluvia Daugherty RN Active * Because of a physical, mental, or emotional condition, do you have difficulty doing errands alone such as visiting a doctor's office or shopping? Answer Date of Assessment Author Status No 09/04/2022 2:00 AM DIGITAL STRATEGY MANAGER Lluvia Daugherty RN Active documented as of this encounter Mental Status * Because of a physical, mental, or emotional condition, do you have serious difficulty concentrating, remembering, or making decisions? Answer Entry Date Author Status No 09/04/2022 2:00 AM DIGITAL STRATEGY MANAGER Lluvia Daugherty RN Active documented in this encounter Plan [...] documented as of this encounter Care Teams Yeast Distiller Relationship Specialty Start Date End Date Cuate St MD [address] [place] [address] PCP - General INTERNAL MEDICINE 05/02/19 12/13/22 Akshat Magana MD [address] [place] [phone] PCP - General FAMILY PRACTICE 12/14/22 07/07/23 Josephine Aguilar MD [address] [place] [phone] PCP - General FAMILY PRACTICE 07/08/23 09/09/24 Ronaldo Weston DO [address] [place], [place] [phone] PCP - General FAMILY PRACTICE 09/10/24 Pallavi Rahman MD [address] [place] [address] Consulting Physician CARDIOVASCULAR DISEASE 08/25/22 Josephine Aguilar MD [address] [place] [phone] Physician FAMILY PRACTICE 03/14/23 Eric Gauthier MD [address] [place] [address] Consulting Physician CLINICAL CARDIAC ELECTROPHYSIOLOGY 06/18/23 Demetri Edwards MD [address] [place] [address] [place] [address] Consulting Physician SURGERY 05/07/24 05/07/25 documented as of this encounter
--- OUTSIDE RECORDS SUMMARY | 2025-08-17 10:17 | XMS_ITS | Clinical Summary ---
Author Organization [facility] Address [address] [place] [address] Phone Care Team Providers Care Monomer Purification Operator Name Role Phone Unavailable Primary Care Provider [...] Insurance MEDICARE C BCBS PPO MICHAEL LOGAN [id number]
--- OUTSIDE RECORDS SUMMARY | 2025-08-17 10:17 | XMS_ITS | Encounter Summary ---
Author Organization [facility] Address [facility] [place] [address] Care Team Providers Care Mica Sizer Name Role Phone Cuate St MD Primary Care Provider [phone] Pallavi Rahmna MD Unavailable Akshat Magana MD Primary Care Provider Josephine Aguilar MD Unavailable [phone] Eric Gauthier MD Unavailable [phone] Josephine Aguilar MD Primary Care Provider + [phone] Demetri Edwards MD Unavailable [phone] Ronaldo Weston DO Primary Care Provider [phone] Encounter Details Date Type Department Care Team (Late st Contact Info) Description 08/02/2022 Hospital Follow-up Call [facility] [address] [place] [address] Poonam Zimmerman RN Social History Tobacco Use Types Packs/Day Years Used Date Smoking Tobacco: Every Day Cigarettes Smokeless Tobacco: Never Alcohol Use Standard Drinks/Week Comments Not Currently 0 (1 standard drink = 0.6 oz pur e alcohol) hx of alcoholism Comments Unknown Sex and Gender Information Value Date Recorded Sex Assigned at Female 09/03/2024 11:46 AM PARI MUTUEL TICKET SELLER Legal Sex Female 2:43 AM CDT Gender Identity Not on file Sexual Orientation Not on file COVID-19 Exposure Response Date Recorded In the last 10 days, have edilberto u been in contact with someone who was confirmed or suspected to have Coronavirus/COVID-19? No / Unsure 07/29/2022 12:35 AM PARI MUTUEL TICKET SELLER documented as of this encounter Functional Status * RETIRED Are you deaf or do you have serious difficulty hearing Answer Date of Assessment Author Status No 07/27/2022 3:53 PM PARI MUTUEL TICKET SELLER Activ e * RETIRED Are you blind or do you have serious difficulty seeing, even when wearing glasses? Answer Date of Assessment Author Status No 07/27/2022 3:53 PM PARI MUTUEL TICKET SELLER Activ e * Do you have serious difficulty walking or climbing stairs? Answer Date of Assessment Author Status Yes 07/27/2022 3:53 PM PARI MUTUEL TICKET SELLER Shakira Nicole RN Active * Do you have difficulty dressing or bathing? Answer Date of Assessment Author Status Yes 07/27/2022 3:53 PM PARI MUTUEL TICKET SELLER Shakira Nicole RN Active * Because of a physical, mental, or emotional condition, do you have difficulty doing errands alone such as visiting a doctor's office or shopping? Answer Date of Assessment Author Status Yes 07/27/2022 3:53 PM PARI MUTUEL TICKET SELLER Shakira Nicole RN Active documented as of this encounter Mental Status * Because of a physical, mental, or emotional condition, do you have serious difficulty concentrating, remembering, or making decisions? 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 09/05/2024 documented as of this encounter Care Teams Mica Sizer Relationship Specialty Start Date End Date Cuate [address] MD [address] [place] [address] PCP - General INTERNAL MEDICINE 05/02/19 12/13/22 Akshat Magana MD [address] [place] [phone] PCP - General FAMILY PRACTICE 12/14/22 07/07/23 Josephine Aguilar MD [address] [place] [phone] PCP - General FAMILY PRACTICE 07/08/23 09/09/24 Ronaldo Weston DO [address] [place] [address] PCP - General FAMILY PRACTICE 09/10/24 Pallavi Rahman MD [address] [place] [address] Consulting Physician CARDIOVASCULAR DISEASE 08/25/22 Josephine Aguilar MD [address] [place] [phone] Physician FAMILY PRACTICE 03/14/23 Eric Gauthier MD [address] [place] [address] Consulting Physician CLINICAL CARDIAC ELECTROPHYSIOLOGY 06/18/23 Demetri Edwards MD [address] [place] [address] [place] [address] Consulting Physician SURGERY 05/07/24 05/07/25 documented as of this encounter
--- OUTSIDE RECORDS SUMMARY | 2025-08-17 10:17 | XMS_ITS | Patient Health Record ---
Author Organization [facility] Address [address] [place] [address] Care Team Providers Care E Commerce Developer Name Role Phone Hedy Collazo Unavailable [phone] Reason For Referral No Information Medications Medication SIG (Take, Route, Frequency, Duration) Notes Start Date End Date Status LACOSAMIDE 200 MG TABLET *Reorder from [employer] for eRx and Interaction Alerts* 05/22/2023 Active [...] l Medicare [address] [place] [phone] [id number] TIMO JIMENEZ Self - patient is the insured
--- OUTSIDE RECORDS SUMMARY | 2025-08-17 10:17 | XMS_ITS | Encounter Summary ---
Author Organization [facility] Address [address] [place] [address] Care Team Providers Care Rock Star Name Role Phone Cuate St MD Primary Care Provider [phone] Akshat Magana MD Primary Care Provider [phone] Encounter Details Date Type Department Care Team (Late st Contact Info) Description 11/07/2021 Documentation 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
== END 2025-08-17 09:53 | disposition home or self-care (01) ==
LOC: CHSLAB 09:53
PROVIDERS: PCP Family Medicine; Visit Provider Nurse Practitioner Family
DX: R30.0 Dysuria (principal); R82.90 Unspecified abnormal findings in urine
CPT/HCPCS: 81001; 87086